=== PATIENT | female | born 1940 | race Caucasian/White ===

== ENCOUNTER 2021-10-23 06:05 | Day surgery (SDC) | payer MEDICARE, MEDICAID, SELFPAY ==
[2021-10-23 07:36] VITALS: BP 134/68; PULSE 74; RESP 20; TEMP 36.7; O2SAT 96
[2021-10-23] MEDS: TETRACAINE 0.5% OPHTH 1 DROP EYE-LEFT ×2 (07:38→07:47)
[2021-10-23] MEDS: KETOROLAC OPHTH 0.5% 1 DROP EYE-LEFT ×2 (07:38→07:54)
[2021-10-23 07:41] VITALS: BMI 38.3
--- NOTE | 2021-10-23 07:52 | SUR.PREOP ---
The eye drops brought by the patient (Ketorolac and Prednisolone) are examined and I have determined they are labeled by the patient's pharmacy for this patient as prescribed by the surgeon. The bottles are intact, recently obtained and appear to be correct. pt did not bring her drops, pharmacy provided them
[2021-10-23] MEDS: TETRACAINE 0.5% OPHTH 2 DROP EYE-LEFT (09:10)
[2021-10-23] MEDS: BALANCED SALT IRRIG SOLN 15 ML EYE-LEFT (09:15)
[2021-10-23 09:35] VITALS: BP 130/77; PULSE 68; RESP 14; TEMP 36.6; O2SAT 96
--- NOTE | 2021-10-23 09:35 | W.ANESCHARGE ---
Anesthesia Charges Start Date/Time Anesthesia Start Date: 10/23/21 Anesthesia Start Time: 09:03 Stop Date/Time Anesthesia Stop Date: 10/23/21 Anesthesia Stop Time: 09:35 Summary Extremes of Age: Over 71-CPT 21673
--- NOTE | 2021-10-23 09:41 | P.PCN_ITS ---
Procedure Note Date Seen: 10/23/21 Will [facility] bill your pro fee for this procedure?: Yes Procedure Description: SURGEON: Catherine Pisano MD PREOPERATIVE DIAGNOSIS: Nuclear sclerotic cataract, left eye. POSTOPERATIVE DIAGNOSIS: Nuclear sclerotic cataract, left eye. NAME OF OPERATION: Phacoemulsification of cataract with posterior chamber intraocular lens implantation in the left eye. ANESTHESIA: Topical. ESTIMATED BLOOD LOSS: Less than 2 cc. COMPLICATIONS: None. PATHOLOGY SPECIMEN: None. INDICATIONS: See consult note for details. The risks, benefits and alternatives of the procedure were explained to the patient, who elected to proceed and signed informed consent to do so. PROCEDURE: The patient was brought to the pre-holding area where the left eye was identified as the operative eye. I placed my initials above this eye. The patient received eye drops consisting of 0.5% tetracaine, 1% tropicamide, 10% phenylephrine, and 0.5% ketorolac. The patient was then brought to the operating room where the left eye was again identified as the operative eye. The eye was prepped with Betadine and draped in the usual sterile ophthalmic fashion. A #15 super-sharp blade was used to create a paracentesis site. 1% non-preserved intracameral lidocaine was injected into the anterior chamber. Endocoat was injected into the anterior chamber. A 2.4 mm keratome was used to create a three-plane self-sealing incision 1 mm anterior to the temporal limbus. A cystotome was used to create an anterior capsular leaflet. The Utrata forceps were used to extend this to form a continuous curvilinear capsulorrhexis. Hydrodissection was performed. The cataract was removed with phacoemulsification using the [id number] technique. The irrigation and aspiration tip was used to remove the remaining cortex. Healon was injected into the capsular bag. An HA ZCB00 intraocular lens of 21.5 diopters was injected into the capsular bag. The irrigation and aspiration tip was used to remove the remaining viscoelastic. Balanced salt solution on a cannula was used to hydrate the wound, and the wound was found to be watertight. The pupil was noted to be round. DISPOSITION: The patient was taken to the recovery room and discharged to home in stable condition. The patient was instructed to call me or go to the emergency department with any sudden change, including dramatic loss of vision, severe pain in the eye or eyebrow region, nausea, or vomiting. The patient will follow up in the clinic tomorrow morning. Surgeon: Catherine Pisano MD
--- NOTE | 2021-10-23 09:46 | W.ANESCHARGE ---
Anesthesia Charges Start Date/Time Anesthesia Start Date: 10/23/21 Anesthesia Start Time: 09:03 Stop Date/Time Anesthesia Stop Date: 10/23/21 Anesthesia Stop Time: 09:35 Summary Extremes of Age: Over 71-CPT 47257
== END 2021-10-23 10:25 | disposition home or self-care (01) ==
PROVIDERS: PCP Family Medicine; Visit Provider Ophthalmology
PROC: (CPT 66984; principal; 2021-10-23 07:30)
DX: H25.12 Age-related nuclear cataract, left eye (principal)
CPT/HCPCS: 66984; 00142; 99100; A9270; J2250; J3010; V2632

== ENCOUNTER 2021-11-06 10:41 | Day surgery (SDC) | payer MEDICARE, MEDICAID, SELFPAY ==
[2021-11-06] MEDS: TETRACAINE 0.5% OPHTH 1 DROP EYE-RIGHT ×2 (11:36→11:50)
[2021-11-06] MEDS: KETOROLAC OPHTH 0.5% 1 DROP EYE-RIGHT ×2 (11:36→11:50)
[2021-11-06 11:40] VITALS: BP 123/66; PULSE 75; RESP 16; TEMP 36.6; O2SAT 96
[2021-11-06 11:41] VITALS: BMI 38.3
[2021-11-06] MEDS: SODIUM CHLORIDE 0.9 % (FLUSH) 10 ML SYRINGE IVF (11:54)
--- NOTE | 2021-11-06 11:57 | SUR.PREOP ---
The eye drops brought by the patient (Ketorolac and Prednisolone) are examined and I have determined they are labeled by the patient's pharmacy for this patient as prescribed by the surgeon. The bottles are intact, recently obtained and appear to be correct.
[2021-11-06] MEDS: TETRACAINE 0.5% OPHTH 2 DROP EYE-RIGHT (12:02)
[2021-11-06] MEDS: BALANCED SALT IRRIG SOLN 15 ML EYE-RIGHT (12:05)
--- NOTE | 2021-11-06 12:12 | W.ANESCHARGE ---
Anesthesia Charges Start Date/Time Anesthesia Start Date: 11/06/21 Anesthesia Start Time: 11:58 Stop Date/Time Anesthesia Stop Date: 11/06/21 Anesthesia Stop Time: 12:26 Summary Emergency: No Extremes of Age: Over 71-CPT 74392
[2021-11-06 12:25] VITALS: BP 131/75; PULSE 76; RESP 16; TEMP 36.7; O2SAT 93
--- NOTE | 2021-11-06 13:08 | P.PCN_ITS ---
Procedure Note Date Seen: 11/06/21 Will [facility] bill your pro fee for this procedure?: Yes Procedure Description: SURGEON: Catherine Pisano MD PREOPERATIVE DIAGNOSIS: Nuclear sclerotic cataract, right eye. POSTOPERATIVE DIAGNOSIS: Nuclear sclerotic cataract, right eye. NAME OF OPERATION: Phacoemulsification of cataract with posterior chamber intraocular lens implantation in the right eye. ANESTHESIA: Topical. ESTIMATED BLOOD LOSS: Less than 2 cc. COMPLICATIONS: None. PATHOLOGY SPECIMEN: None. INDICATIONS: See consult note for details. The risks, benefits and alternatives of the procedure were explained to the patient, who elected to proceed and signed informed consent to do so. PROCEDURE: The patient was brought to the pre-holding area where the right eye was identified as the operative eye. I placed my initials above this eye. The patient received eye drops consisting of 0.5% tetracaine, 1% tropicamide, 10% phenylephrine, and 0.5% ketorolac. The patient was then brought to the operating room where the right eye was again identified as the operative eye. The eye was prepped with Betadine and draped in the usual sterile ophthalmic fashion. A #15 super-sharp blade was used to create a paracentesis site. 1% non-preserved intracameral lidocaine was injected into the anterior chamber. Endocoat was injected into the anterior chamber. A 2.4 mm keratome was used to create a three-plane self-sealing incision 1 mm anterior to the temporal limbus. A cystotome was used to create an anterior capsular leaflet. The Utrata forceps were used to extend this to form a continuous curvilinear capsulorrhexis. Hydrodissection was performed. The cataract was removed with phacoemulsification using the [id number] technique. The irrigation and aspiration tip was used to remove the remaining cortex. Healon was injected into the capsular bag. An HA ZCB00 intraocular lens of 21.5 diopters was injected into the capsular bag. The irrigation and aspiration tip was used to remove the remaining viscoelastic. Balanced salt solution on a cannula was used to hydrate the wound, and the wound was found to be watertight. The pupil was noted to be round. DISPOSITION: The patient was taken to the recovery room and discharged to home in stable condition. The patient was instructed to call me or go to the emergency department with any sudden change, including dramatic loss of vision, severe pain in the eye or eyebrow region, nausea, or vomiting. The patient will follow up in the clinic tomorrow morning. Surgeon: Catherine Pisano MD
--- NOTE | 2021-11-06 13:26 | W.ANESCHARGE ---
Anesthesia Charges Start Date/Time Anesthesia Start Date: 11/06/21 Anesthesia Start Time: 11:58 Stop Date/Time Anesthesia Stop Date: 11/06/21 Anesthesia Stop Time: 12:26 Summary Emergency: No Extremes of Age: Over 71-CPT 90935
== END 2021-11-06 13:52 | disposition home or self-care (01) ==
PROVIDERS: PCP Family Medicine; Visit Provider Ophthalmology
PROC: (CPT 66984; principal; 2021-11-06 10:45)
DX: H25.11 Age-related nuclear cataract, right eye (principal)
CPT/HCPCS: 66984; 00142; 99100; A9270; J2250; J3010; V2632

== ENCOUNTER 2022-01-09 16:37 | Emergency (ER) | payer MEDICARE, OTHER, SELFPAY ==
[2022-01-09] VITALS (15 sets, daily range): BP systolic 125–145; BP diastolic 75–107; PULSE 83–98; RESP 16; TEMP 36.3; O2SAT 86–93
--- NOTE | 2022-01-09 17:01 | ED_ITS ---
HPI - General Adult General Time Seen by Provider: 17:02 Date Seen: 01/09/22 Chief complaint: Chest Pain Stated complaint: Heart issues Time Seen by Provider: 01/09/22 16:48 Source: patient and RN notes reviewed Mode of arrival: ambulatory Limitations: no limitations History of Present Illness HPI narrative: Patient is an 81-year-old female coming in with concern of similar symptoms in 2019. She reports she went to the doctor and they diagnosed her with bronchitis. She states she had a doctor come back in and [place] it was not multiple things. He went to do some more blood testing and came back in and told her that they were going to put her in the hospital motor up on a bunch of Lasix. She states over weeks she has been feeling progressively more short of breath, coughing. No fevers or chills. She has a pacemaker and notes that sometimes at night it will flip up until after flipped down. She states she hates this pacemaker. She has occasional chest pressure at times but no acute chest pain. Maybe some diminished appetite but no nausea vomiting, no abdominal pain. She thinks she has had some weight gain. She is a bit vague as a historian but certainly a very pleasant person. Related Data Home Medications Medication Instructions Recorded Confirmed acetaminophen 500 mg capsule 500 mg PO Q6H PRN 10/21/21 10/21/21 amitriptyline 10 mg tablet 10 mg PO DAILY 10/21/21 10/23/21 apixaban 5 mg tablet (Eliquis) 5 mg PO DAILY 10/21/21 10/23/21 atorvastatin 40 mg tablet 40 mg PO DAILY 10/21/21 10/23/21 fluconazole 150 mg tablet 150 mg PO .weekly 10/21/21 10/21/21 fluoxetine 20 mg capsule 20 mg PO DAILY 10/21/21 10/23/21 furosemide 20 mg tablet 20 mg PO DAILY 10/21/21 10/23/21 glipizide 2.5 mg tablet, extended 2.5 mg PO DAILY 10/21/21 10/23/21 release 24 hr metformin 500 mg tablet,extended 500 mg PO DAILY 10/21/21 10/23/21 release 24 hr metoprolol succinate 25 mg 25 mg PO DAILY 10/21/21 10/23/21 tablet,extended release 24 hr nitrofurantoin 100 mg PO 10/21/21 monohydrate/macrocrystals 100 mg capsule omeprazole 20 mg capsule,delayed 20 mg PO DAILY 10/21/21 10/23/21 release oxycodone 5 mg tablet 5 mg PO 10/21/21 pramipexole 0.125 mg tablet 0.125 mg PO 10/21/21 spironolactone 25 mg tablet 12.5 mg PO DAILY 10/21/21 10/23/21 trazodone 50 mg tablet 50 mg PO 10/21/21 Allergies Allergy/AdvReac Type Severity Reaction Status Date / Time latex Allergy Mild Rash Verified 10/23/21 07:20 metronidazole Allergy Unknown Diarrhea Verified 11/06/21 11:05 nickel Allergy Unknown Rash Verified 11/06/21 11:05 diazepam [From Valium] Allergy Agitation Verified 10/23/21 07:20 tizanidine Allergy Hallucinati Verified 10/23/21 07:20 ng cephalexin AdvReac Diarrhea Verified 10/23/21 07:20 codeine AdvReac nausea Verified 10/23/21 07:20 gabapentin AdvReac Anxiety Verified 10/23/21 07:20 meperidine [From Demerol] AdvReac Agitated Verified 10/23/21 07:20 morphine AdvReac Nausea Verified 10/23/21 07:20 PFSH PFSH Medical History Anxiety CAD (coronary artery disease) Diabetes mellitus GERD (gastroesophageal reflux disease) Hypertension Menieres disease Myocardial infarction Osteoarthritis Paroxysmal atrial fibrillation 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 Surgical History H/O cervical discectomy H/O shoulder replacement History of hysterectomy History of total knee arthroplasty Social History Smoking Status: Never smoker How often do you have a drink containing alcohol: never AUDIT-C Alcohol total score: 0 Non-prescribed substance use: denies use Caffeine: No Exam Const: Vital Signs, click to edit/add: Vital Signs - 24 hr 01/09/22 16:47 01/09/22 17:22 01/09/22 16:54 Temperature 97.4 F L Pulse Rate 98 Pulse Rate [Right Pulse Oximeter] 94 Blood Pressure Blood Pressure [Le ft Upper Arm] 138/91 H Pulse Oximetry 92 92 93 Oxygen Delivery Me thod Room Air 01/09/22 17:00 01/09/22 17:09 01/09/22 17:30 Temperature Pulse Rate 93 95 94 Pulse Rate [Right Pulse Oximeter] Blood Pressure 134/78 Blood Pressure [Le ft Upper Arm] Pulse Oximetry 90 90 88 Oxygen Delivery Me thod 01/09/22 17:34 01/09/22 17:36 01/09/22 17:37 Temperature Pulse Rate 84 94 92 Pulse Rate [Right Pulse Oximeter] Blood Pressure 139/107 H 145/104 H Blood Pressure [Le ft Upper Arm] Pulse Oximetry 90 92 90 Oxygen Delivery Me thod 01/09/22 18:00 01/09/22 18:02 01/09/22 18:36 Temperature Pulse Rate 91 90 83 Pulse Rate [Right Pulse Oximeter] Blood Pressure 126/75 Blood Pressure [Le ft Upper Arm] Pulse Oximetry 86 L 86 L 90 Oxygen Delivery Me thod 01/09/22 18:38 Temperature Pulse Rate 92 Pulse Rate [Right Pulse Oximeter] Blood Pressure 131/82 Blood Pressure [Le ft Upper Arm] Pulse Oximetry 88 Oxygen Delivery Me thod Documenting provider has reviewed patient's vital signs: yes Common normals: no apparent distress, oriented x3, no limitations, healthy appearing, alert and well nourished General appearance: cooperative, comfortable and well kempt Nutritional appearance: obese HENMT: Common normals: normocephalic, head/scalp atraumatic, hearing grossly normal bilaterally, external ears normal, external nose normal, nasal mucous membranes and turbinates normal, moist oral mucous membranes and oropharynx normal Head and scalp: normocephalic and atraumatic Nose: external nose normal and nasal mucous membranes and turbinates normal External ear: external ears normal Eye: Common normals: PERRL, EOMs intact bilaterally, conjunctivae normal and no scleral icterus Conjunctiva: conjunctiva(e) normal Pupil: PERRL Neck & C-Spine: Common normals: full ROM, no lymphadenopathy, supple, no meningeal signs, thyroid normal and no carotid bruits Thyroid: thyroid normal Other: Neck is thick, short, difficult to assess jugular venous distention. Chest: Other: Has some excoriation versus superficial shallow areas on her left shoulder area up with some surrounding erythema. Patient states it continues to spread. She states after she got the COVID vaccination her arm bothered her. She has been placing Neosporin on this. Reviewed with her that I think this is probably a reaction to the Neosporin from what I am looking at. Resp: Common normals: normal respiratory effort, no retractions and no use of accessory muscles Other: Has some fibrotic sounding crackles right base. Overall lungs sound clear. Cardio: Common normals: regular rate, regular rhythm, S1 normal heart sound, S2 normal heart sound, no gallops, no clicks and no murmurs Rate: regular rate Rhythm: regular rhythm Heart sounds: S1 normal and S2 normal GI: Common normals: Normal to inspection, nondistended, normoactive bowel sounds present, soft to palpation, non-tender, no hepatosplenomegaly and no masses Palpation: soft and no hepatosplenomegaly Extremity: Other: She has no lower extremity edema, no calf tenderness. Neuro: Common normals: oriented x3 Sensorium/orientation: alert Meningeal signs: no meningeal signs Psych: Appearance: well kempt Course Course Hospital Course: Will attempt to look back in her 2019 records as she states she was here. Will consider acute cardiopulmonary etiologies such as CHF, pneumonia. We will start with a portable chest x-ray. We will obtain lab work. Her EKG shows a paced rhythm, thus her pacemaker shortly working. Being on chronic anticoagulation, it is very doubtful that this would represent thromboembolic disease. Reevaluation(s) Reevaluation #1: Have reviewed with patient her normal chest x-ray, labs show very mildly elevated proBNP at 647. In 2019 when she was hospitalized overnight she did have a proBNP of 1130. Sounds as if she was admitted because of hypoxia that time. With resting she did dip to 88-89% but was asymptomatic. I do believe she very likely lives there and probably decompensates even lower in deep sleep. I will recommend a sleep study which she could have arranged through her primary care provider. This time there is nothing suggesting that she needs inpatient management. She surely could be developing some mild increase congestive heart failure symptoms which I think she can start with some incre ased oral Lasix tomorrow. I do not think she needs anything emergently here tonight, plus, we certainly do not want to keep her up all night diarrhea seen when she really is not clinically unstable. Time: 19:01 Vital Signs Vital signs: Initial Vital Signs Temperature 97.4 F L 01/09/22 16:47 Temperature Source Temporal Artery Scan 01/09/22 16:47 Pulse Rate 94 01/09/22 16:47 Blood Pressure 138/91 H 01/09/22 16:47 Blood Pressure Mean 106 01/09/22 16:47 Blood Pressure Position Supine 01/09/22 16:47 Pulse Oximetry 92 01/09/22 16:47 Oxygen Delivery Method 01/09/22 16:47 Vital Signs Temperature 97.4 F L 01/09/22 16:47 Pulse Rate 94 01/09/22 16:47 Blood Pressure 138/91 H 01/09/22 16:47 Pulse Oximetry 92 01/09/22 16:47 Oxygen Delivery Method 01/09/22 16:47 Temperature 97.4 F L 01/09/22 16:47 Pulse Rate 92 01/09/22 18:38 Blood Pressure 131/82 01/09/22 18:38 Pulse Oximetry 88 01/09/22 18:38 Oxygen Delivery Method 01/09/22 16:47 Medical Decision Making Lab Data Lab results reviewed: Yes I reviewed the patient's lab results Labs: Lab Results 01/09/22 01/09/22 01/09/22 Range/Units 17:23 17:27 17:27 WBC 6.29 (4.50-11.00) K/uL RBC 4.35 (4.00-5.20) m/uL Hgb 13.2 (12.0-16.0) gm/dL Hct 40.1 (33.0-51.0) % MCV 92 (80-100) fL MCH 30 (26-34) pg MCHC 33 (32-36) gm/dL RDW Coeff of Lucy 13.5 (11.5-15.5) % Plt Count 316 (140-440) K/uL Neut % (Auto) 58.3 (42.0-72.0) % Lymph % (Auto) 22.1 (20-44) % Collier % (Auto) 13.5 H (0.0-11.0) % Eos % (Auto) 5.2 (0.0-7.0) % Baso % (Auto) 0.6 (0.0-3.0) % Neut # (Auto) 3.66 (1.7-7.0) K/uL Lymph # (Auto) 1.39 (0.90-2.90) K/uL Collier # (Auto) 0.80 (0.00-0.90) K/UL Eos # (Auto) 0.33 (0.00-0.50) K/uL Baso # (Auto) 0.04 (0.00-0.30) K/uL Abs Immat Gran (auto) 0.02 (0.00-0.30) K/uL VBG pH (7.32-7.43) VBG pCO2 (40-50) mmHG VBG pO2 (25-47) mmHG VBG HCO3 (21-28) mmol/L Sodium 134 L (135-149) mmol/L Potassium 4.6 (3.6-5.1) mmol/L Chloride 97 (96-114) mmol/L Carbon Dioxide 26 (20-32) mmol/L BUN 12 (7-30) mg/dL Creatinine 0.7 (0.5-1.5) mg/dL Estimated GFR 87 ml/min Glucose 149 H (60-115) mg/dL Calcium 9.4 (8.4-10.6) mg/dL Magnesium 1.7 (1.5-2.6) mg/dL Total Bilirubin 0.7 (0.1-1.5) mg/dL AST 32 (12-35) U/L ALT 15 (4-35) U/L Alkaline Phosphatase 82 (40-150) U/L C-Reactive Protein 1.2 H (0.5-1.0) mg/dL NT-Pro-B Natriuret Pep 647 H (0-450) PG/mL Total Protein 8.1 (6.0-8.3) g/dL Albumin 4.4 (3.3-5.0) g/dL SARS-CoV-2 (PCR) (Negative) POC Troponin I 0.00 L (0.01-0.04) ng/ml 01/09/22 01/09/22 Range/Units 17:27 17:30 WBC (4.50-11.00) K/uL RBC (4.00-5.20) m/uL Hgb (12.0-16.0) gm/dL Hct (33.0-51.0) % MCV (80-100) fL MCH (26-34) pg MCHC (32-36) gm/dL RDW Coeff of Lucy (11.5-15.5) % Plt Count (140-440) K/uL Neut % (Auto) (42.0-72.0) % Lymph % (Auto) (20-44) % Collier % (Auto) (0.0-11.0) % Eos % (Auto) (0.0-7.0) % Baso % (Auto) (0.0-3.0) % Neut # (Auto) (1.7-7.0) K/uL Lymph # (Auto) (0.90-2.90) K/uL Collier # (Auto) (0.00-0.90) K/UL Eos # (Auto) (0.00-0.50) K/uL Baso # (Auto) (0.00-0.30) K/uL Abs Immat Gran (auto) (0.00-0.30) K/uL VBG pH 7.480 H (7.32-7.43) VBG pCO2 39 L (40-50) mmHG VBG pO2 48.8 H (25-47) mmHG VBG HCO3 29 H (21-28) mmol/L Sodium (135-149) mmol/L Potassium (3.6-5.1) mmol/L Chloride (96-114) mmol/L Carbon Dioxide (20-32) mmol/L BUN (7-30) mg/dL Creatinine (0.5-1.5) mg/dL Estimated GFR ml/min Glucose (60-115) mg/dL Calcium (8.4-10.6) mg/dL Magnesium (1.5-2.6) mg/dL Total Bilirubin (0.1-1.5) mg/dL AST (12-35) U/L ALT (4-35) U/L Alkaline Phosphatase (40-150) U/L C-Reactive Protein (0.5-1.0) mg/dL NT-Pro-B Natriuret Pep (0-450) PG/mL Total Protein (6.0-8.3) g/dL Albumin (3.3-5.0) g/dL SARS-CoV-2 (PCR) Negative SARS-CoV-2 (Negative) POC Troponin I (0.01-0.04) ng/ml Imaging Data Chest x-ray: Attestation: I have reviewed the pertinent imaging results. My impression: No acute cardiopulmonary change on my preliminary review. Radiologist's impression: Patient: ERASMO CLEVELAND Facility:?[facility] Patient ID:?[id number] Site Patient ID:?[id number]. Site :?[id number] Study:?XRay Chest PCXR-01/09/2022 5:53:15 PM Ordering Physician:?Bethel Pinto Final Report: INDICATION: Cough and shortness of breath. TECHNIQUE: One view. COMPARISON: 21 March 2019. IMPRESSION: No acute cardiopulmonary disease. Minor reticular fibrotic changes in the right upper lobe and left base similar to before. Pulmonary vascularity is normal. Cardiac pacing body and wires unchanged. Bilateral shoulder prosthesis. No new significant finding. Dictated by Aleksandr Acuna MD @ 01/09/2022 6:23:54 PM (Electronic Signature) ECG Data Attestation: I personally reviewed and interpreted this ECG as follows: (Atrial sensed ventricular paced rhythm, 95 beats per minute) Prior ECG tracings: not available for review Critical Care Time Critical Care Time Critical Care Time: No Discharge Plan Discharge Clinical Impression: Congestive heart failure Condition: Stable Instructions: Heart Failure (ED), Heart Healthy Diet (ED) Additional Instructions: Tomorrow morning, increase your Lasix (furosemide) to 40 mg daily for 3 days. Go back to 20 mg in the morning after that. Need to be rechecked in clinic with your primary care provider this next week. Recommend trying to minimize sodium in your diet as this can help prevent congestive heart failure episodes. Recommend daily weight and follow this. If any point you feel you are worsening through the weekend, have chest pain, increasing cough, increasing shortness of breath or develops fever, do recommend re-evaluation. Activity Level: Activity as Tolerated Discharge Diet: Heart Healthy (2 gm sodium, low fat) Prescriptions: No Action atorvastatin 40 mg tablet 40 mg PO DAILY Label Comments: TAKE ONE TABLET BY MOUTH DAILY amitriptyline 10 mg tablet 10 mg PO DAILY Label Comments: TAKE 2 TABLETS (20 MG) BY MOUTH AT BEDTIME. acetaminophen 500 mg capsule 500 mg PO Q6H PRN Eliquis 5 mg tablet 5 mg PO DAILY Label Comments: TAKE ONE TABLET BY MOUTH TWICE A DAY fluoxetine 20 mg capsule 20 mg PO DAILY Label Comments: TAKE ONE CAPSULE BY MOUTH DAILY fluconazole 150 mg tablet 150 mg PO .weekly Label Comments: TAKE ONE TABLET BY MOUTH WEEKLY FOR 6 WEEKS furosemide 20 mg tablet 20 mg PO DAILY Label Comments: TAKE 3 TABLETS BY MOUTH DAILY glipizide 2.5 mg tablet extended release 24hr 2.5 mg PO DAILY Label Comments: TAKE ONE TABLET(2.5MG) BY MOUTH ONCE DAILY BEFORE A MEAL metformin 500 mg tablet extended release 24 hr 500 mg PO DAILY Label Comments: TAKE 4 TABLETS BY MOUTH DAILY AT 10AM metoprolol succinate 25 mg tablet extended release 24 hr 25 mg PO DAILY Label Comments: TAKE TWO TABLETS BY MOUTH DAILY nitrofurantoin monohyd/m-cryst 100 mg capsule 100 mg PO Label Comments: TAKE ONE CAPSULE BY MOUTH TWICE A DAY omeprazole 20 mg capsule,delayed release(DR/EC) 20 mg PO DAILY Label Comments: TAKE ONE CAPSULE BY MOUTH DAILY oxycodone 5 mg tablet 5 mg PO Label Comments: TAKE ONE TABLET BY MOUTH DURING THE DAY AND 2 TABLETS AT BEDTIME pramipexole 0.125 mg tablet 0.125 mg PO Label Comments: TAKE ONE TABLET BY MOUTH AT NOON AND 2 TABS EVERY EVENING spironolactone 25 mg tablet 12.5 mg PO DAILY Label Comments: TAKE 1/2 TABLET BY MOUTH DAILY trazodone 50 mg tablet 50 mg PO Label Comments: TAKE 2 TABLETS (100 MG) BY MOUTH AT BEDTIME. Follow Up/Referrals: Jesus Mistry MD [Primary Care Provider] - Stand Alone Forms: [facility] Info Instructions
--- NOTE | 2022-01-09 17:22 | CRLHL7_ITS ---
For Patients: As a result of the Cures Act, medical imaging exams and procedure reports are released immediately into your electronic medical record. You may view this report before your referring provider. If you have questions, please contact your health care provider. INDICATION: Cough and shortness of breath. TECHNIQUE: One view. COMPARISON: 21 March 2019. IMPRESSION: No acute cardiopulmonary disease. Minor reticular fibrotic changes in the right upper lobe and left base similar to before. Pulmonary vascularity is normal. Cardiac pacing body and wires unchanged. Bilateral shoulder prosthesis. No new significant finding. Dictated by Aleksandr Acuna MD @ 01/09/2022 6:23:54 PM (Electronically Signed)
[2022-01-09 17:51] LABS: HCO3 VBG 29 mmol/L (21-28); PCO2 VBG 39 mmHG (40-50); PO2 VBG 48.8 mmHG (25-47)
[2022-01-09 17:56] LABS: Basophils Absolute Auto 0.04 K/uL (0.00-0.30); Basophils Percent Auto 0.6 % (0.0-3.0); Eosinophils Absolute Auto 0.33 K/uL (0.00-0.50); Eosinophils Percent Auto 5.2 % (0.0-7.0); Hematocrit 40.1 % (33.0-51.0); Hemoglobin* 13.2 gm/dL (12.0-16.0); Immature Granulocytes Abs Auto 0.02 K/uL (0.00-0.30); Lymphocytes Absolute Auto 1.39 K/uL (0.90-2.90); Lymphocytes Percent Auto 22.1 % (20-44); Mean Corpuscular HGB Conc 33 gm/dL (32-36); Mean Corpuscular Hemoglobin 30 pg (26-34); Mean Corpuscular Volume 92 fL (80-100); Monocytes Percent Auto 13.5 % (0.0-11.0); Neutrophils Absolute Auto 3.66 K/uL (1.7-7.0); Neutrophils Percent Auto 58.3 % (42.0-72.0); Platelet Count* 316 K/uL (140-440); RDW Coefficient of Variation % 13.5 % (11.5-15.5); Red Blood Count 4.35 m/uL (4.00-5.20); White Blood Count* 6.29 K/uL (4.50-11.00)
[2022-01-09 17:59] LABS: Slide Review Reflex No
[2022-01-09 18:10] LABS: Albumin* 4.4 g/dL (3.3-5.0); Chloride* 97 mmol/L (96-114); Sodium* 134 mmol/L (135-149)
[2022-01-09 18:11] LABS: Potassium* 4.6 mmol/L (3.6-5.1)
[2022-01-09 18:13] LABS: Alkaline Phosphatase* 82 U/L (40-150); Aspartate Amino Transferase* 32 U/L (12-35); Bilirubin Total* 0.7 mg/dL (0.1-1.5); Carbon Dioxide* 26 mmol/L (20-32); Creatinine* 0.7 mg/dL (0.5-1.5); Estimated Glomerular Filt Rate 87 ml/min; Total Protein* 8.1 g/dL (6.0-8.3)
[2022-01-09 18:14] LABS: Alanine Aminotransferase* 15 U/L (4-35); Blood Urea Nitrogen* 12 mg/dL (7-30); Calcium* 9.4 mg/dL (8.4-10.6); Glucose* 149 mg/dL (60-115); Magnesium* 1.7 mg/dL (1.5-2.6)
[2022-01-09 18:15] LABS: SARS PCR* Negative SARS-CoV-2 (Negative)
[2022-01-09 18:16] LABS: C Reactive Protein* 1.2 mg/dL (0.5-1.0)
[2022-01-09 18:22] LABS: NT Pro B Type NatriureticPept* 647 PG/mL (0-450)
== END 2022-01-09 19:55 | disposition home or self-care (01) ==
PROVIDERS: Emergency Provider Family Medicine; PCP Family Medicine
DX: I50.9 Heart failure, unspecified (principal)
CPT/HCPCS: 36415; 71045; 80053; 82803; 83735; 83880; 85025; 86140; 87635; 93005; 94761; 99284

== ENCOUNTER 2022-01-28 12:52 | Outpatient (CLI) | payer MEDICARE, OTHER, SELFPAY | END 2022-01-28 12:53 | disposition home or self-care (01) | LOC: WOUND 12:52 | PROVIDERS: PCP Family Medicine; Visit Provider Physician Assistant Surgical | DX: L85.3 Xerosis cutis (principal); F42.4 Excoriation (skin-picking) disorder | CPT/HCPCS: 99213 ==

== ENCOUNTER 2022-02-04 13:27 | Outpatient (CLI) | payer MEDICARE, OTHER, SELFPAY | END 2022-02-04 13:28 | disposition home or self-care (01) | LOC: WOUND 13:28 | PROVIDERS: PCP Family Medicine; Visit Provider Nurse Practitioner Family | DX: F42.4 Excoriation (skin-picking) disorder (principal); L85.3 Xerosis cutis | CPT/HCPCS: 99213 ==

== ENCOUNTER 2022-02-12 21:41 | Outpatient (CLI) | payer MEDICARE, OTHER, SELFPAY | END 2022-02-12 21:42 | disposition home or self-care (01) | LOC: AMB 03-09 11:54 | PROVIDERS: PCP Family Medicine; Visit Provider Family Medicine | DX: R06.09 Other forms of dyspnea (principal) | CPT/HCPCS: A0425; A0427 ==

== ENCOUNTER 2022-02-12 21:55 | Emergency (ER) | payer MEDICARE, OTHER, SELFPAY ==
[2022-02-12 22:06] VITALS: BP 125/70; PULSE 76; RESP 18; TEMP 36.8; O2SAT 92; BMI 33.8
--- NOTE | 2022-02-12 22:32 | ED.SOB ---
HPI - SOB/Dyspnea General Chief Complaint: Shortness of Breath/Dyspnea Stated Complaint: Shortness of Breath Time Seen by Provider: 02/12/22 22:14 History of Present Illness HPI Narrative: 81-year-old woman presenting to the emergency department via EMS with complaint of increasing shortness of breath. She says she feels better now that she is here on oxygen. Nasal cannula is in place however she is not receiving oxygen at this time. Reviewing records shows her current oxygenation to be similar to prior visits. She says she was recently diagnosed with pulmonary fibrosis on a visit with her doctor and also apparently with a pneumonia. It is not clear that she received imaging at this time. She has been taking doxycycline for 6 days now. She does not use oxygen at home but thinks maybe she should. Unclear where pulmonary fibrosis diagnosis has come from per her recollection. She does have an an inhaler which she tried at home but it did not help she says. Has been feeling short of breath over the last week or more. Says that doctor said that she did not have heart failure. Furthermore she says she has lost 25 lb since . She has not had a fever but recounts how family members have been quite sick without a fever. Living independently at [facility] Related Data Home Medications Medication Instructions Recorded Confirmed acetaminophen 500 mg capsule 500 mg PO Q6H PRN 10/21/21 10/21/21 amitriptyline 10 mg tablet 10 mg PO DAILY 10/21/21 10/23/21 apixaban 5 mg tablet (Eliquis) 5 mg PO DAILY 10/21/21 10/23/21 atorvastatin 40 mg tablet 40 mg PO DAILY 10/21/21 10/23/21 fluconazole 150 mg tablet 150 mg PO .weekly 10/21/21 10/21/21 fluoxetine 20 mg capsule 20 mg PO DAILY 10/21/21 10/23/21 furosemide 20 mg tablet 20 mg PO DAILY 10/21/21 10/23/21 glipizide 2.5 mg tablet, extended 2.5 mg PO DAILY 10/21/21 10/23/21 release 24 hr metformin 500 mg tablet,extended 500 mg PO DAILY 10/21/21 10/23/21 release 24 hr metoprolol succinate 25 mg 25 mg PO DAILY 10/21/21 10/23/21 tablet,extended release 24 hr nitrofurantoin 100 mg PO 10/21/21 monohydrate/macrocrystals 100 mg capsule omeprazole 20 mg capsule,delayed 20 mg PO DAILY 10/21/21 10/23/21 release oxycodone 5 mg tablet 5 mg PO 10/21/21 pramipexole 0.125 mg tablet 0.125 mg PO 10/21/21 spironolactone 25 mg tablet 12.5 mg PO DAILY 10/21/21 10/23/21 trazodone 50 mg tablet 50 mg PO 10/21/21 Allergies Allergy/AdvReac Type Severity Reaction Status Date / Time latex Allergy Mild Rash Verified 02/12/22 22:06 metronidazole Allergy Unknown Diarrhea Verified 02/12/22 22:06 nickel Allergy Unknown Rash Verified 02/12/22 22:06 diazepam [From Valium] Allergy Agitation Verified 02/12/22 22:06 tizanidine Allergy Hallucinati Verified 02/12/22 22:06 ng cephalexin AdvReac Diarrhea Verified 02/12/22 22:06 codeine AdvReac nausea Verified 02/12/22 22:06 gabapentin AdvReac Anxiety Verified 02/12/22 22:06 meperidine [From Demerol] AdvReac Agitated Verified 02/12/22 22:06 morphine AdvReac Nausea Verified 02/12/22 22:06 Review of Systems Status of ROS: Reports: 6 or more systems reviewed and unremarkable except as noted in History and below PFSH [facility] Medical History Anxiety CAD (coronary artery disease) Diabetes mellitus GERD (gastroesophageal reflux disease) Hypertension Menieres disease Myocardial infarction Osteoarthritis Paroxysmal atrial fibrillation 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 NAD. Speaking in full sentences. Nonlabored breathing. Oropharynx is moist. Nasopharynx sounds just a little congested. Neck is supple Lungs with end inspiratory crackles diffusely, mild. End expiratory trace wheeze diffusely. Good air movement. Cardiovascular with regular rate and rhythm. Might be hearing a trace systolic murmur. I do not appreciate JVD Lower extremities are well perfused and without edema. Const: Vital Signs, click to edit/add: Vital Signs - 24 hr 02/12/22 22:06 02/12/22 22:35 02/12/22 23:00 Temperature 98.2 F Pulse Rate [Pulse Oximeter] 76 76 Respiratory Rate 18 17 Blood Pressure [Ri ght Upper Arm] 125/70 137/69 Pulse Oximetry 92 89 90 Oxygen Delivery Me thod Room Air Room Air 02/13/22 03:17 02/13/22 01:00 Temperature Pulse Rate [Pulse Oximeter] 68 74 Respiratory Rate 18 18 Blood Pressure [Ri ght Upper Arm] 129/77 144/66 H Pulse Oximetry 94 Oxygen Delivery Me thod Room Air Documenting provider has reviewed patient's vital signs: yes Course Course Hospital Course: Due to what she describes as a discomfort in her spine/arthritis does transition regularly in the bed and then ultimately in a chair/wheelchair. Vital Signs Vital signs: Initial Vital Signs Temperature 98.2 F 02/12/22 22:06 Temperature Source Temporal Artery Scan 02/12/22 22:06 Pulse Rate 76 02/12/22 22:06 Respiratory Rate 18 02/12/22 22:06 Blood Pressure 125/70 02/12/22 22:06 Blood Pressure Mean 88 02/12/22 22:06 Pulse Oximetry 92 02/12/22 22:06 Oxygen Delivery Method 02/12/22 22:06 Vital Signs Temperature 98.2 F 02/12/22 22:06 Pulse Rate 76 02/12/22 22:06 Respiratory Rate 18 02/12/22 22:06 Blood Pressure 125/70 02/12/22 22:06 Pulse Oximetry 92 02/12/22 22:06 Oxygen Delivery Method 02/12/22 22:06 Temperature 98.2 F 02/12/22 22:06 Pulse Rate 68 02/13/22 03:17 Respiratory Rate 18 02/13/22 03:17 Blood Pressure 129/77 02/13/22 03:17 Pulse Oximetry 94 02/13/22 01:00 Oxygen Delivery Method 02/13/22 01:00 MDM - SOB/Dyspnea MDM Narrative Medical decision making narrative: IV was established. CRP and procalcitonin are normal. Venous blood gases are improved from prior as is pro BNP at 5:01 a.m.. White count is not elevated. Urinalysis is obtained 2+ leukocyte esterase and 5-10 white cells on microscopic. She is not having symptoms of urinary tract infection however. Not complaining overly of weakness either. Wheeze had resolved and moving more air after nebulization. Oxygen saturations remained at what I think is her low baseline. Chest x-ray showed fibrotic changes by my read. Radiology over-read with concern of some multifocal infiltrate overlying. She has been taking doxycycline. I think labs seem less likely to support infectious etiology here. COVID influenza and RSV screening was negative Inquiring about returning home around this time Ms. Hinton said she just did not feel well enough to do so. Solu-Medrol and pramipexole was given and we did check labs as above. After longer period of observation agreed that seems reasonably well enough to return home. She was asking for oxygen to be supplied for discharge home but I would not be able to do that tonight. I do feel she is safe to depart the emergency department. Given though back discomfort was given 1 of her usual oxycodone pills from our stock. Was also given ceftriaxone if there is more going on here. She does have followup next day for pulmonary function testing. Plan to add a course of prednisone and continue doxycycline. Lab Data Attestation: I reviewed the patient's lab results. Labs: Lab Results 02/12/22 02/12/22 02/12/22 Range/Units 22:40 23:55 23:55 WBC 7.52 (4.50-11.00) K/uL RBC 4.32 (4.00-5.20) m/uL Hgb 12.9 (12.0-16.0) gm/dL Hct 39.4 (33.0-51.0) % MCV 91 (80-100) fL MCH 30 (26-34) pg MCHC 33 (32-36) gm/dL RDW Coeff of Lucy 13.9 (11.5-15.5) % Plt Count 308 (140-440) K/uL Neut % (Auto) 57.5 (42.0-72.0) % Lymph % (Auto) 25.5 (20-44) % Harvey % (Auto) 12.2 H (0.0-11.0) % Eos % (Auto) 4.1 (0.0-7.0) % Baso % (Auto) 0.4 (0.0-3.0) % Neut # (Auto) 4.32 (1.7-7.0) K/uL Lymph # (Auto) 1.92 (0.90-2.90) K/uL Harvey # (Auto) 0.90 (0.00-0.90) K/UL Eos # (Auto) 0.31 (0.00-0.50) K/uL Baso # (Auto) 0.03 (0.00-0.30) K/uL Abs Immat Gran (auto) 0.02 (0.00-0.30) K/uL Imm/Tot Granulo (auto) 0.3 % VBG pH (7.32-7.43) VBG pCO2 (40-50) mmHG VBG pO2 (25-47) mmHG VBG HCO3 (21-28) mmol/L Sodium 136 (135-149) mmol/L Potassium 4.3 (3.6-5.1) mmol/L Chloride 104 (96-114) mmol/L Carbon Dioxide 25 (20-32) mmol/L BUN 16 (7-30) mg/dL Creatinine 0.7 (0.5-1.5) mg/dL Estimated Creat Clear 35.49 Estimated GFR 87 ml/min Glucose 152 H (60-115) mg/dL Calcium 9.1 (8.4-10.6) mg/dL C-Reactive Protein < 0.5 L (0.5-1.0) mg/dL NT-Pro-B Natriuret Pep 501 H (0-450) PG/mL Procalcitonin 0.07 (<0.50) ng/mL Urine Color (Yellow) Urine Appearance (Clear) Urine pH (5.0-8.5) Ur Specific [place] (1.000-1.030) Urine Protein (Negative) Urine Glucose (UA) (Negative) Urine Ketones (Negative) Urine Blood (Negative) Urine Nitrite (Negative) Urine Bilirubin (Negative) Urine Urobilinogen (0.2-1.0) Ur Leukocyte Esterase (Negative) Urine RBC (0-2) Urine WBC (0-5) Ur Squamous Epith Cells (None-Few) Amorphous Sediment (None) Urine Bacteria (None) Urine Mucus (None) SARS-CoV-2 (PCR) Negative SARS-CoV-2 (Negative) Influenza Type A (PCR) Negative PCR FLU A (Negative) Influenza Type B (PCR) Negative PCR FLU B (Negative) RSV (PCR) Negative PCR RSV (Negative) 02/12/22 02/13/22 Range/Units 23:55 00:30 WBC (4.50-11.00) K/uL RBC (4.00-5.20) m/uL Hgb (12.0-16.0) gm/dL Hct (33.0-51.0) % MCV (80-100) fL MCH (26-34) pg MCHC (32-36) gm/dL RDW Coeff of Ulcy (11.5-15.5) % Plt Count (140-440) K/uL Neut % (Auto) (42.0-72.0) % Lymph % (Auto) (20-44) % Harvey % (Auto) (0.0-11.0) % Eos % (Auto) (0.0-7.0) % Baso % (Auto) (0.0-3.0) % Neut # (Auto) (1.7-7.0) K/uL Lymph # (Auto) (0.90-2.90) K/uL Harvey # (Auto) (0.00-0.90) K/UL Eos # (Auto) (0.00-0.50) K/uL Baso # (Auto) (0.00-0.30) K/uL Abs Immat Gran (auto) (0.00-0.30) K/uL Imm/Tot Granulo (auto) % VBG pH 7.457 H (7.32-7.43) VBG pCO2 40 (40-50) mmHG VBG pO2 48.1 H (25-47) mmHG VBG HCO3 28 (21-28) mmol/L Sodium (135-149) mmol/L Potassium (3.6-5.1) mmol/L Chloride (96-114) mmol/L Carbon Dioxide (20-32) mmol/L BUN (7-30) mg/dL Creatinine (0.5-1.5) mg/dL Estimated Creat Clear Estimated GFR ml/min Glucose (60-115) mg/dL Calcium (8.4-10.6) mg/dL C-Reactive Protein (0.5-1.0) mg/dL NT-Pro-B Natriuret Pep (0-450) PG/mL Procalcitonin (<0.50) ng/mL Urine Color Yellow (Yellow) Urine Appearance Clear (Clear) Urine pH 5.5 (5.0-8.5) Ur Specific [place] 1.015 (1.000-1.030) Urine Protein Negative (Negative) Urine Glucose (UA) Trace A (Negative) Urine Ketones Negative (Negative) Urine Blood Negative (Negative) Urine Nitrite Negative (Negative) Urine Bilirubin Negative (Negative) Urine Urobilinogen 0.2 (0.2-1.0) Ur Leukocyte Esterase 2+ A (Negative) Urine RBC 0-2 (0-2) Urine WBC 5-10 A (0-5) Ur Squamous Epith Cells Few (None-Few) Amorphous Sediment Moderate A (None) Urine Bacteria Moderate A (None) Urine Mucus Moderate A (None) SARS-CoV-2 (PCR) (Negative) Influenza Type A (PCR) (Negative) Influenza Type B (PCR) (Negative) RSV (PCR) (Negative) Discharge Plan Discharge Clinical Impression: Pulmonary fibrosis, Cough Patient Disposition: Home, Self-Care Condition: Improved Additional Instructions: Would continue the doxycycline. Watch your sugars while taking the prednisone. I would expect your sugars to be up. Good luck with your pulmonary function testing tomorrow. Return for persistent increased rate/work of breathing, associated fever. Prednisone from [facility]. Prescriptions: No Action atorvastatin 40 mg tablet 40 mg PO DAILY Label Comments: TAKE ONE TABLET BY MOUTH DAILY amitriptyline 10 mg tablet 10 mg PO DAILY Label Comments: TAKE 2 TABLETS (20 MG) BY MOUTH AT BEDTIME. acetaminophen 500 mg capsule 500 mg PO Q6H PRN Eliquis 5 mg tablet 5 mg PO DAILY Label Comments: TAKE ONE TABLET BY MOUTH TWICE A DAY fluoxetine 20 mg capsule 20 mg PO DAILY Label Comments: TAKE ONE CAPSULE BY MOUTH DAILY fluconazole 150 mg tablet 150 mg PO .weekly Label Comments: TAKE ONE TABLET BY MOUTH WEEKLY FOR 6 WEEKS furosemide 20 mg tablet 20 mg PO DAILY Label Comments: TAKE 3 TABLETS BY MOUTH DAILY glipizide 2.5 mg tablet extended release 24hr 2.5 mg PO DAILY Label Comments: TAKE ONE TABLET(2.5MG) BY MOUTH ONCE DAILY BEFORE A MEAL metformin 500 mg tablet extended release 24 hr 500 mg PO DAILY Label Comments: TAKE 4 TABLETS BY MOUTH DAILY AT 10AM metoprolol succinate 25 mg tablet extended release 24 hr 25 mg PO DAILY Label Comments: TAKE TWO TABLETS BY MOUTH DAILY nitrofurantoin monohyd/m-cryst 100 mg capsule 100 mg PO Label Comments: TAKE ONE CAPSULE BY MOUTH TWICE A DAY omeprazole 20 mg capsule,delayed release(DR/EC) 20 mg PO DAILY Label Comments: TAKE ONE CAPSULE BY MOUTH DAILY oxycodone 5 mg tablet 5 mg PO Label Comments: TAKE ONE TABLET BY MOUTH DURING THE DAY AND 2 TABLETS AT BEDTIME pramipexole 0.125 mg tablet 0.125 mg PO Label Comments: TAKE ONE TABLET BY MOUTH AT NOON AND 2 TABS EVERY EVENING spironolactone 25 mg tablet 12.5 mg PO DAILY Label Comments: TAKE 1/2 TABLET BY MOUTH DAILY trazodone 50 mg tablet 50 mg PO Label Comments: TAKE 2 TABLETS (100 MG) BY MOUTH AT BEDTIME. Follow Up/Referrals: Jesus Mistry MD [Primary Care Provider] - Stand Alone Forms: [facility] Info Instructions
[2022-02-12 22:35] VITALS: O2SAT 89
--- NOTE | 2022-02-12 22:35 | CRLHL7_ITS ---
For Patients: As a result of the Cures Act, medical imaging exams and procedure reports are released immediately into your electronic medical record. You may view this report before your referring provider. If you have questions, please contact your health care provider. INDICATION: Chest pain. TECHNIQUE: Chest 1 view. COMPARISON: January 09, 2022. FINDINGS: Cardiovascular and mediastinum: Cardiomediastinal silhouette is within normal limits. Left chest wall pacer with leads extending to the right atrium and ventricle. Lungs and pleural spaces: Multifocal bilateral airspace opacities are noted, slightly increased compared to the prior exam. No evidence of pleural effusion. No pneumothorax identified. Bones and soft tissues: Unremarkable. Bilateral humeral head arthroplasty changes. Cervical fusion changes. IMPRESSION: Multifocal airspace opacities, slightly increased compared to the prior exam concerning for multifocal infection on a background of scarring. Dictated by Karen Neumann MD @ 02/12/2022 11:14:07 PM (Electronically Signed)
[2022-02-12] MEDS: IPRAT-ALBUT 0.5-2.5 MG/3 ML NEB 1 NEB IH (22:45)
[2022-02-12 23:00] VITALS: BP 137/69; PULSE 76; RESP 17; O2SAT 90
[2022-02-12 23:45] LABS: PCR FLU A Negative PCR FLU A (Negative); PCR FLU B Negative PCR FLU B (Negative); PCR RSV Negative PCR RSV (Negative); SARS PCR* Negative SARS-CoV-2 (Negative)
[2022-02-13] MEDS: METHYLPREDNISOLONE SOD SUCC 62.5 MG/ML (125) 80 MG IVP (00:03)
[2022-02-13 00:09] LABS: Basophils Absolute Auto 0.03 K/uL (0.00-0.30); Basophils Percent Auto 0.4 % (0.0-3.0); Eosinophils Absolute Auto 0.31 K/uL (0.00-0.50); Eosinophils Percent Auto 4.1 % (0.0-7.0); Hematocrit 39.4 % (33.0-51.0); Hemoglobin* 12.9 gm/dL (12.0-16.0); Immature Granulocytes Abs Auto 0.02 K/uL (0.00-0.30); Immature Granulocytes Pct Auto 0.3 %; Lymphocytes Absolute Auto 1.92 K/uL (0.90-2.90); Lymphocytes Percent Auto 25.5 % (20-44); Mean Corpuscular HGB Conc 33 gm/dL (32-36); Mean Corpuscular Hemoglobin 30 pg (26-34); Mean Corpuscular Volume 91 fL (80-100); Monocytes Percent Auto 12.2 % (0.0-11.0); Neutrophils Absolute Auto 4.32 K/uL (1.7-7.0); Neutrophils Percent Auto 57.5 % (42.0-72.0); Platelet Count* 308 K/uL (140-440); RDW Coefficient of Variation % 13.9 % (11.5-15.5); Red Blood Count 4.32 m/uL (4.00-5.20); White Blood Count* 7.52 K/uL (4.50-11.00)
[2022-02-13 00:12] LABS: Slide Review Reflex No
[2022-02-13 00:13] LABS: HCO3 VBG 28 mmol/L (21-28); PCO2 VBG 40 mmHG (40-50); PO2 VBG 48.1 mmHG (25-47); pH VBG 7.457 (7.32-7.43)
[2022-02-13 00:24] LABS: Chloride* 104 mmol/L (96-114)
[2022-02-13 00:25] LABS: Potassium* 4.3 mmol/L (3.6-5.1); Sodium* 136 mmol/L (135-149)
[2022-02-13 00:27] LABS: Creatinine* 0.7 mg/dL (0.5-1.5); Est. Creatinine Clearance* 35.49; Estimated Glomerular Filt Rate 87 ml/min
[2022-02-13 00:28] LABS: Blood Urea Nitrogen* 16 mg/dL (7-30); Calcium* 9.1 mg/dL (8.4-10.6); Carbon Dioxide* 25 mmol/L (20-32); Glucose* 152 mg/dL (60-115)
[2022-02-13] MEDS: PRAMIPEXOLE 0.125 MG TABLET PO (00:35)
[2022-02-13 00:37] LABS: NT Pro B Type NatriureticPept* 501 PG/mL (0-450)
[2022-02-13 00:40] LABS: Appearance Urine Clear (Clear); Bilirubin Urine Negative (Negative); Blood Urine Negative (Negative); Color Urine Yellow (Yellow); Glucose Urine Trace (Negative); Ketones Urine Negative (Negative); Leukocyte Esterase Urine 2+ (Negative); Nitrite Urine Negative (Negative); Protein Urine Negative (Negative); Specific Gravity Urine 1.015 (1.000-1.030); Urobilinogen Urine 0.2 (0.2-1.0); pH Urine 5.5 (5.0-8.5)
[2022-02-13 00:45] LABS: Procalcitonin* 0.07 ng/mL (<0.50)
[2022-02-13 00:46] LABS: C Reactive Protein* < 0.5 mg/dL (0.5-1.0)
[2022-02-13 00:49] LABS: Amorphous Sediment Urine Moderate; Bacteria Urine Moderate; Mucus Urine Moderate; RBC Urine 0-2 (0-2); Squamous Epithelial Cell Urine Few (None-Few)
[2022-02-13 01:00] VITALS: BP 144/66; PULSE 74; RESP 18; O2SAT 94
[2022-02-13] MEDS: cefTRIAXone 1 GM in 0.9 % SODIUM CHLORIDE Mini-bag 100 ML IVPB (01:39)
[2022-02-13] MEDS: OXYCODONE 5 MG TABLET PO (01:40)
[2022-02-13 03:17] VITALS: BP 129/77; PULSE 68; RESP 18
--- NOTE | 2022-02-14 12:39 | ED.NURSE ---
[facility] calling for prednisone prescription for patient (patient requesting from them). Per notes, was instymed by Dr. Mcghee. Called patient, she couldn't afford the instymed so just left without requesting medication be sent elsewhere. Dr. Mcghee here today, will send to [facility] pharmacy for patient. Patient informed. No further questions/concerns.
== END 2022-02-13 03:17 | disposition home or self-care (01) ==
PROVIDERS: Emergency Provider Family Medicine; PCP Family Medicine
DX: J84.10 Pulmonary fibrosis, unspecified (principal); R05.9 Cough, unspecified
CPT/HCPCS: 36415; 71046; 80048; 81001; 82803; 83880; 84145; 85025; 86140; 87086; 87502; 87634; 87635; 94640; 94761; 96365; 96375; 99284; 99285; A9270; J0696; J2930

== ENCOUNTER 2022-02-18 13:03 | Outpatient (CLI) | payer MEDICARE, OTHER, SELFPAY | END 2022-02-18 13:04 | disposition home or self-care (01) | LOC: WOUND 13:03 | PROVIDERS: PCP Family Medicine; Visit Provider Nurse Practitioner Family | DX: F42.4 Excoriation (skin-picking) disorder (principal); L85.3 Xerosis cutis | CPT/HCPCS: 99213 ==

== ENCOUNTER 2022-03-04 13:01 | Outpatient (CLI) | payer MEDICARE, OTHER, SELFPAY | END 2022-03-04 13:02 | disposition home or self-care (01) | LOC: WOUND 13:02 | PROVIDERS: PCP Family Medicine; Visit Provider Nurse Practitioner Family | DX: F42.4 Excoriation (skin-picking) disorder (principal); L85.3 Xerosis cutis | CPT/HCPCS: 99213 ==

== ENCOUNTER 2022-04-15 12:58 | Outpatient (CLI) | payer MEDICARE, SELFPAY | END 2022-04-15 12:59 | disposition home or self-care (01) | LOC: WOUND 12:58 | PROVIDERS: PCP Family Medicine; Visit Provider Nurse Practitioner Family | DX: L85.3 Xerosis cutis (principal); F42.4 Excoriation (skin-picking) disorder | CPT/HCPCS: 97597 ==

== ENCOUNTER 2022-04-29 13:28 | Outpatient (CLI) | payer MEDICARE, SELFPAY ==
[2022-04-29 17:14] LABS: Erythrocyte SedimentationRate* 49 mm/hr (2-20)
[2022-04-29 18:04] LABS: Free T4 Free Thyroxine* 1.45 ng/dL (0.70-1.85)
[2022-04-29 18:22] LABS: Ferritin* 28.3 ng/mL (11.1-264.0)
[2022-05-01 22:20] LABS: T3 Uptake 36 % (28-41)
[2022-05-01 23:00] LABS: TPO Antibody 0.6 IU/mL (0.0-9.0); Thyroglobulin Antibody <0.9 IU/mL (0.0-4.0)
[2022-05-02 16:28] LABS: Zinc, Serum/Plasma 91.7 ug/dL (60.0-120.0)
== END 2022-04-29 13:29 | disposition home or self-care (01) ==
LOC: WOUND 13:28
PROVIDERS: PCP Family Medicine; Visit Provider Nurse Practitioner Family
DX: F42.4 Excoriation (skin-picking) disorder (principal); L85.3 Xerosis cutis; R53.82 Chronic fatigue, unspecified; L30.9 Dermatitis, unspecified
CPT/HCPCS: 11042; 36415; 82728; 84439; 84443; 84479; 84630; 85651; 86376; 86800

== ENCOUNTER 2022-05-20 12:26 | Outpatient (CLI) | payer OTHER, SELFPAY | END 2022-05-20 12:27 | disposition home or self-care (01) | LOC: WOUND 12:26 | PROVIDERS: PCP Family Medicine; Visit Provider Nurse Practitioner Family | DX: F42.4 Excoriation (skin-picking) disorder (principal); L85.3 Xerosis cutis | CPT/HCPCS: 99213 ==

== ENCOUNTER 2022-05-27 13:14 | Outpatient (CLI) | payer MEDICARE, SELFPAY | END 2022-05-27 13:15 | disposition home or self-care (01) | LOC: WOUND 13:14 | PROVIDERS: PCP Family Medicine; Visit Provider Nurse Practitioner Family | DX: F42.4 Excoriation (skin-picking) disorder (principal); L85.3 Xerosis cutis; L30.9 Dermatitis, unspecified; R41.840 Attention and concentration deficit | CPT/HCPCS: 99214 ==

== ENCOUNTER 2022-06-18 15:31 | Outpatient (RCR) | payer MEDICARE, SELFPAY | END 2023-05-29 08:38 | disposition home or self-care (01) | LOC: MOW 15:31 | PROVIDERS: PCP Family Medicine; Visit Provider Family Medicine | DX: Z76.0 Encounter for issue of repeat prescription (principal) | CPT/HCPCS: S5170 ==

== ENCOUNTER 2022-06-24 13:25 | Outpatient (CLI) | payer MEDICARE, SELFPAY | END 2022-06-24 13:26 | disposition home or self-care (01) | LOC: WOUND 13:25 | PROVIDERS: PCP Family Medicine; Visit Provider Nurse Practitioner Family | DX: F42.4 Excoriation (skin-picking) disorder (principal); L85.3 Xerosis cutis | CPT/HCPCS: 99212 ==

== ENCOUNTER 2023-03-13 15:00 | Outpatient (RCR) | payer MEDICARE, SELFPAY | END 2023-07-11 23:59 | disposition home or self-care (01) | PROVIDERS: PCP Family Medicine; Visit Provider Family Medicine | DX: M54.2 Cervicalgia (principal); G89.29 Other chronic pain; R51.9 Headache, unspecified; Z51.89 Encounter for other specified aftercare | CPT/HCPCS: 97110; 97140; 97161; 97162 ==

== ENCOUNTER 2023-03-31 12:13 | Inpatient (IN) | payer MEDICARE, SELFPAY ==
[2023-03-31] VITALS (25 sets, daily range): BP systolic 100–139; BP diastolic 47–82; PULSE 60–96; RESP 16–24; TEMP 36.5–37.6; O2SAT 86–99; BMI 38.4
--- NOTE | 2023-03-31 12:36 | CRLHL7_ITS ---
For Patients: As a result of the Century Cures Act, medical imaging exams and procedure reports are released immediately into your electronic medical record. You may view this report before your referring provider. If you have questions, please contact your health care provider. INDICATION: Fall, on blood thinners, confusion. COMPARISON: None. TECHNIQUE: CT of the brain/head without the use of IV contrast. Multiplanar axial, coronal, and sagittal reformats were reconstructed. FINDINGS: Mild age related volume loss. Scattered small hypodensities consistent with chronic microvascular ischemic change. No acute or subacute territorial infarct. No intracranial hemorrhage. No mass, mass effect, or midline shift. The ventricles are normal in size and shape. No fracture or focal osseous lesion. The mastoid and middle ears are clear. Air-fluid level in the right maxillary sinus. The ostiomeatal unit is patent. No substantial mucosal thickening.. Included orbit and globe are normal. IMPRESSION: No intracranial hemorrhage or calvarial fracture. Please note that all CT scans at this facility use dose modulation, iterative reconstruction, and/or weight-based dosing when appropriate to reduce radiation dose to as low as reasonably achievable. Dictated by Marily Looney MD @ 03/31/2023 1:43:24 PM (Electronically Signed)
--- NOTE | 2023-03-31 12:38 | ED_ITS ---
HPI - General Adult General Date Seen: 03/31/23 Chief complaint: Fall/Minor Trauma Stated complaint: Fall Time Seen by Provider: 03/31/23 12:23 History of Present Illness HPI narrative: This is an 82-year-old female with a complex past history including chronic lo ngstanding back pain (dating back to the 1970s), longstanding shoulder pain status post bilateral shoulder replacements over a decade ago, or hypertension, restless leg syndrome, GERD, chronic anticoagulation (patient unsure why) who is brought to the ER today from her apartment where she lives independently by EMS. History is obtained by combination of EMS and from the patient. History is limited from the patient. For parts of the history the patient is an exceptionally detail historian, for instance she is able to recall that she had shoulder surgery in 2017 and that she has back pain dating back to 1974. For other parts of the history she seems very unreliable in confused. For instance she is not able to recall how long she has been feeling unsteady. According to the patient she has been unsteady since yesterday afternoon or evening. She does have some chronic on slit it is but noticed that she had to catch herself several times last night when she was cleaning up her kitchen. She went to bed last night and then woke up at about 1:00 a.m. to go to the bathroom. She was unsteady getting out of bed and then slipped off the edge of the bed down onto the floor. She could not get up off the floor. It sounds like her cell phone was on the bed spread. Finally this morning she pulled the bed spread off the bed and moved her cellphone within reach so she was able to call for help. EMS notes that she has had chronic trouble with mobility and that her visiting care providers have started the process to get her a medic alert bracelet, but it is not accomplished yet. Patient says she did not really fall, she does lift off the bed. She does not think she was injured. She also tells me that she had a flare-up in pain in both of her shoulders, especially her right shoulder, and had trouble using her arms overnight last night. This is why she could not get up. She was just too weak and having too much pain. She also has chronic low back pain affecting her upper, middle, lower back, that is not changed from baseline. She does take oxycodone for that twice a day. She is starting to feel withdrawal symptoms because she did not get her dose of oxycodone this morning. She is also noted to have a fever when we checked her vital signs upon arrival. When I ask her about that she says she thinks she felt feverish last night but d oes not recall fever over the past few days. She does have a cough this morning but does not really know if it has been going on for the past few days or not. She does not feel short of breath. She is not having chest pain. She does not recall any palpitations or specific dizziness or chest pain that led to her fall. She also has chronic severe pain in her head neck. This is unchanged from jovan verma. She has a printed copy of her medication list with her. According to that list her medications currently are Eliquis 5 mg b.i.d. The metformin 2000 mg q.a.m. Spironolactone 12.5 mg daily Furosemide 60 mg by mouth daily Omeprazole 20 mg by mouth daily Fluoxetine 20 mg by mouth daily Trazodone 100 mg q.h.s. Pramipexole 0.25 mg every evening Metoprolol 50 mg each evening Atorvastatin 40 mg daily Amitriptyline 20 mg q.h.s. Related Data Home Medications Medication Instructions Recorded Confirmed acetaminophen 500 mg capsule 500 mg PO Q6H PRN 10/21/21 03/05/23 amitriptyline 10 mg tablet 10 mg PO DAILY 10/21/21 03/05/23 apixaban 5 mg tablet (Eliquis) 5 mg PO DAILY 10/21/21 03/05/23 atorvastatin 40 mg tablet 40 mg PO DAILY 10/21/21 03/05/23 fluconazole 150 mg tablet 150 mg PO .weekly 10/21/21 03/05/23 fluoxetine 20 mg capsule 20 mg PO DAILY 10/21/21 03/05/23 furosemide 20 mg tablet 20 mg PO DAILY 10/21/21 03/05/23 glipizide 2.5 mg tablet, extended 2.5 mg PO DAILY 10/21/21 03/05/23 release 24 hr metformin 500 mg tablet,extended 500 mg PO DAILY 10/21/21 03/05/23 release 24 hr metoprolol succinate 25 mg 25 mg PO DAILY 07/25/22 12/07/23 tablet,extended release 24 hr nitrofurantoin 100 mg PO 10/21/21 03/05/23 monohydrate/macrocrystals 100 mg capsule omeprazole 20 mg capsule,delayed 20 mg PO DAILY 10/21/21 03/05/23 release oxycodone 5 mg tablet 5 mg PO 10/21/21 03/05/23 pramipexole 0.125 mg tablet 0.125 mg PO 10/21/21 03/05/23 spironolactone 25 mg tablet 12.5 mg PO DAILY 10/21/21 03/05/23 trazodone 50 mg tablet 50 mg PO 10/21/21 03/05/23 Previous Rx's Medication Instructions Recorded prednisone 20 mg tablet See Rx Instructions .Route 02/14/22 .COMPLEX #11 tabs Allergies Allergy/AdvReac Type Severity Reaction Status Date / Time latex Allergy Mild Rash Verified 03/05/23 10:15 metronidazole Allergy Unknown Diarrhea Verified 03/05/23 10:15 nickel Allergy Unknown Rash Verified 03/05/23 10:15 diazepam [From Valium] Allergy Agitation Verified 03/05/23 10:15 kiwi Allergy Verified 03/05/23 10:15 tizanidine Allergy Hallucinati Verified 03/05/23 10:15 ng cephalexin AdvReac Diarrhea Verified 03/05/23 10:15 codeine AdvReac nausea Verified 03/05/23 10:15 gabapentin AdvReac Anxiety Verified 03/05/23 10:15 meperidine [From Demerol] AdvReac Agitated Verified 03/05/23 10:15 morphine AdvReac Nausea Verified 03/05/23 10:15 PFSH PFSH Medical History Anxiety CAD (coronary artery disease) Diabetes mellitus GERD (gastroesophageal reflux disease) Hypertension Menieres disease Myocardial infarction Osteoarthritis Paroxysmal atrial fibrillation 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 Surgical History H/O cervical discectomy H/O shoulder replacement History of hysterectomy History of total knee arthroplasty Social History Smoking Status: Never smoker How often do you have a drink containing alcohol: never AUDIT-C Alcohol total score: 0 Non-prescribed substance use: denies use Caffeine: No Exam Narrative: Exam Narrative: Constitutional: Appears well-developed and well-nourished. Alert. Hard of hearing. Conversant but a somewhat disjointed historian. Non toxic. Requires assistance to sit up for posterior lung exam HENT: Head: Atraumatic. No depressed skull fracture, Raccoon Eyes, Lindsey's sign, or hemotympanum. Face normal. TMs normal Nose: Nose normal. Mouth/Throat: Oral mucosa is clear and moist. no trismus. Pharynx normal. Tonsils symmetric. No tonsillar enlargement, erythema, or exudate. She has multiple evidence for dental caries and dental fractures. Her right maxillary canine is broken down to the gums. She also has evidence for previous extractions or dental fractures of her left mandibular premolars. No definite gingival erythema, swelling, abscess. No Sathya angina. No facial swelling. Eyes: Conjunctivae normal. EOM normal. Pupils equal, round, and reactive to light. No scleral icterus. Neck: Normal range of motion. Neck supple. No tracheal deviation present. No posterior midline tenderness. Cardiovascular: Normal rate, regular rhythm. No gallop. No friction rub. No murmur heard. Symmetric radial artery pulses Pulmonary/Chest: Effort normal. Occasional dry cough. No stridor. No respiratory distress. No wheezes. Right basilar rales. No rhonchi . No tenderness. Abdominal: Soft. Bowel sounds normal. No distension. No mass. No tenderness. No rebound. No guarding. Musculoskeletal: She is able to sit up. She has no tenderness to midline palpation of the C, T, L-spine. RUE: Normal range of motion. No tenderness. No deformity LUE: Normal range of motion. No tenderness. No deformity RLE: Normal range of motion. No edema. No tenderness. No deformity LLE: Normal range of motion. No edema. No tenderness. No deformity Lymph: No cervical adenopathy. Neurological: Alert and oriented to person, place, and time. Normal strength. CN II-VII intact. No sensory deficit. GCS eye subscore is 4. GCS verbal subscore is 5. GCS motor subscore is 6. Normal coordination Skin: Skin is warm and dry. No rash noted. No pallor. Normal capillary refill. Psychiatric: Normal mood. Normal affect. She is polite. Const: Vital Signs, click to edit/add: Vital Signs - 24 hr 03/31/23 12:19 03/31/23 14:05 Temperature 99.6 F Pulse Rate [Pulse Oximeter] 80 Respiratory Rate 16 Blood Pressure [Ri ght Upper Arm] 110/68 Pulse Oximetry 95 95 Oxygen Delivery Me thod Room Air Nasal Cannula Oxygen Flow Rate 2 Course Vital Signs Vital signs: Initial Vital Signs Temperature 99.6 F 03/31/23 12:19 Temperature Source Temporal Artery Scan 03/31/23 12:19 Pulse Rate 80 03/31/23 12:19 Respiratory Rate 16 03/31/23 12:19 Blood Pressure 110/68 03/31/23 12:19 Blood Pressure Mean 82 03/31/23 12:19 Blood Pressure Position Supine 03/31/23 12:19 Pulse Oximetry 95 03/31/23 12:19 Oxygen Delivery Method Room Air 03/31/23 12:19 Vital Signs Temperature 99.6 F 03/31/23 12:19 Pulse Rate 80 03/31/23 12:19 Respiratory Rate 16 03/31/23 12:19 Blood Pressure 110/68 03/31/23 12:19 Pulse Oximetry 95 03/31/23 12:19 Oxygen Delivery Method Room Air 03/31/23 12:19 Temperature 99.6 F 03/31/23 12:19 Pulse Rate 80 03/31/23 12:19 Respiratory Rate 16 03/31/23 12:19 Blood Pressure 110/68 03/31/23 12:19 Pulse Oximetry 95 03/31/23 14:05 Oxygen Delivery Method Nasal Cannula 03/31/23 14:05 Oxygen Flow Rate 2 03/31/23 14:05 Medications Administered Medications: Discontinued Medications Generic Name Dose Route Start Last Admin Trade Name Freq PRN Reason Stop Dose Admin Dexamethasone 6 mg 03/31/23 14:09 03/31/23 14:43 Dexamethasone 4 Mg/Ml Vial IV 03/31/23 14:10 6 mg ONCE ONE Administration Sodium Chloride 1,000 mls @ 1,000 mls/hr 03/31/23 12:45 03/31/23 13:40 0.9 % Sodium Chloride 1000 Ml IV 03/31/23 13:44 1,000 mls/hr .Q1H REX Administration Oxycodone HCl 5 mg 03/31/23 12:36 03/31/23 13:30 Oxycodone 5 Mg Tablet PO 03/31/23 12:37 5 mg ONCE ONE Administration Medical Decision Making MDM Narrative Medical decision making narrative: 82-year-old female with a complex past history is brought to the ER today by EMS for evaluation after she slipped and fell getting out of bed last night and was too weak to get off the floor all night long. She was probably on the floor of her bedroom about 10 hours. She does report feeling a bit unsteady last night. She does have a fever upon presentation here. She does not recall any other antecedent fever over the past few days or any other symptoms leading up to this. Differential for fevers broad. She is positive for coronavirus which is the likely source. Urinalysis is negative. No evidence for any skin infection or cellulitis. No evidence for any septic arthritis. Blood cultures are pending but overall low suspicion for bacteremia. Chest x-ray shows subtle right-sided infiltrates that are probably related to COVID, not community-acquired pneumonia. At this point I do not think she needs empiric antibiotics. In terms of COVID, she is hypoxic here in the ER but is doing well on 2 L nasal cannula. No respiratory distress or progressive respiratory deterioration suggesting that she is immediately going to require BiPAP or endotracheal intubation. We will start her on steroids for hypoxia from COVID. Decadron 6 mg IV 1st dose given here in the ER. She did spend the night on the floor. Concern is for possible rhabdomyolysis. BMP shows normal kidney function. At this time CK is pending. IV fluids, 1 L IV bolus administered. Venous lactic mildly elevated 2.2, likely due to dehydration from not having any access to fluids overnight or this morning. 1 L IV fluid bolus. At this point no evidence for acute coronary syndrome. She does have a pacemaker that is functioning on her EKG. Troponin normal. No signs of pulmonary edema or CHF. We did evaluate for possible injuries from her event. She says she really did not fall but more slipped off the edge of the bed. She has no new pain. She does have chronic pain in her back for which we ordered oxycodone. She normally takes oxycodone twice a day. She does not have any new hip pain or any other evidence for long bone fracture. She did see mildly confused. Unclear if this is her baseline or possibly could be due to delirium from her COVID. Since she is on Eliquis, even though there is no outward signs of head trauma, we did do a head CT. CT is normal. On patient does have a small few small excoriations on her arms and legs and her back. She had called an manager hospitality the recently suspicious that she might have bedbugs. At this point no signs of bacterial superinfection. Rash not consistent with scabies or disseminated zoster or meningococcus see Sophy. Will need nursing and bed linen quarantine for bedbugs. Discussed with hospitalist, Dr. Fagan, at 3:30 p.m. and he accepts for admission. Lab Data Labs: Lab Results 03/31/23 03/31/23 Range/Units 12:53 13:31 WBC 5.96 (4.50-11.00) K/uL RBC 4.13 (4.00-5.20) m/uL Hgb 12.1 (12.0-16.0) gm/dL Hct 37.6 (33.0-51.0) % MCV 91 (80-100) fL MCH 29 (26-34) pg MCHC 32 (32-36) gm/dL RDW Coeff of Lucy 13.6 (11.5-15.5) % Plt Count 243 (140-440) K/uL Neut % (Auto) 68.0 (42.0-72.0) % Lymph % (Auto) 11.4 L (20-44) % [place] % (Auto) 19.8 H (0.0-11.0) % Eos % (Auto) 0.3 (0.0-7.0) % Baso % (Auto) 0.3 (0.0-3.0) % Neut # (Auto) 4.05 (1.7-7.0) K/uL Lymph # (Auto) 0.70 L (0.90-2.90) K/uL [place] # (Auto) 1.20 H (0.00-0.90) K/UL Eos # (Auto) 0.02 (0.00-0.50) K/uL Baso # (Auto) 0.02 (0.00-0.30) K/uL Abs Immat Gran (auto) 0.01 (0.00-0.30) K/uL Imm/Tot Granulo (auto) 0.2 % Sodium 136 (135-149) mmol/L Potassium 4.4 (3.6-5.1) mmol/L Chloride 101 (96-114) mmol/L Carbon Dioxide 27 (20-32) mmol/L Anion Gap 8 (7-15) mEq/L BUN 13 (7-30) mg/dL Creatinine 0.7 (0.5-1.5) mg/dL Estimated GFR 87 ml/min Glucose 179 H (60-115) mg/dL Lactate 2.2 H (0.5-1.9) mmol/L Calcium 8.6 (8.4-10.6) mg/dL Troponin I < 0.01 L (0.01-0.04) ng/mL Urine Color Yellow (Yellow) Urine Appearance Slightly Cloudy A (Clear) Urine pH 6.0 (5.0-8.5) Ur Specific [place] 1.025 (1.000-1.030) Urine Protein 1+ A (Negative) Urine Glucose (UA) Negative (Negative) Urine Ketones Negative (Negative) Urine Blood 1+ A (Negative) Urine Nitrite Negative (Negative) Urine Bilirubin Negative (Negative) Urine Urobilinogen 0.2 (0.2-1.0) Ur Leukocyte Esterase Trace A (Negative) Urine RBC 0-2 (0-2) Urine WBC 0-2 (0-5) Ur Squamous Epith Cells Few (None-Few) Urine Bacteria Few A (None) Urine Mucus Few A (None) SARS-CoV-2 (PCR) POSITIVE SARS-CoV-2 A (Negative) Influenza Type A (PCR) Negative PCR FLU A (Negative) Influenza Type B (PCR) Negative PCR FLU B (Negative) RSV (PCR) Negative PCR RSV (Negative) Imaging Data CT scan - head: Attestation: I have reviewed the pertinent imaging results. My impression: IMPRESSION: No intracranial hemorrhage or calvarial fracture. Chest x-ray: Attestation: I have reviewed the pertinent imaging results. My impression: possible right lower and middl elobe infiltrates ECG Data Attestation: I personally reviewed and interpreted this ECG as follows: Interpretation: Atrial sensed ventricular paced rhythm. Rate 80 [place] 114 QRS axis left axis deviation consistent with pacemaker. ST segment/T wave: Consistent with pacemaker. No ST segment elevation according to Sgarbossa QTc: 491 Discharge Plan Discharge Clinical Impression: COVID-19, Weakness, Fall Patient Disposition: Admitted As Observation
[2023-03-31 13:09] LABS: Appearance Urine Slightly Cloudy (Clear); Bilirubin Urine Negative (Negative); Blood Urine 1+ (Negative); Color Urine Yellow (Yellow); Glucose Urine Negative (Negative); Ketones Urine Negative (Negative); Leukocyte Esterase Urine Trace (Negative); Nitrite Urine Negative (Negative); Protein Urine 1+ (Negative); Specific Gravity Urine 1.025 (1.000-1.030); Urobilinogen Urine 0.2 (0.2-1.0)
[2023-03-31] MEDS: OXYCODONE 5 MG TABLET PO ×2 (13:30→17:21)
[2023-03-31 13:35] LABS: PCR FLU A Negative PCR FLU A (Negative); PCR FLU B Negative PCR FLU B (Negative); PCR RSV Negative PCR RSV (Negative)
[2023-03-31] MEDS: 0.9 % SODIUM CHLORIDE 1000 ml 1,000 ML IV (13:40)
[2023-03-31 13:43] LABS: Lactate* 2.2 mmol/L (0.5-1.9)
[2023-03-31 13:47] LABS: Basophils Absolute Auto 0.02 K/uL (0.00-0.30); Basophils Percent Auto 0.3 % (0.0-3.0); Eosinophils Absolute Auto 0.02 K/uL (0.00-0.50); Eosinophils Percent Auto 0.3 % (0.0-7.0); Hematocrit 37.6 % (33.0-51.0); Hemoglobin* 12.1 gm/dL (12.0-16.0); Immature Granulocytes Abs Auto 0.01 K/uL (0.00-0.30); Immature Granulocytes Pct Auto 0.2 %; Lymphocytes Percent Auto 11.4 % (20-44); Mean Corpuscular HGB Conc 32 gm/dL (32-36); Mean Corpuscular Hemoglobin 29 pg (26-34); Mean Corpuscular Volume 91 fL (80-100); Monocytes Percent Auto 19.8 % (0.0-11.0); Neutrophils Absolute Auto 4.05 K/uL (1.7-7.0); Platelet Count* 243 K/uL (140-440); RDW Coefficient of Variation % 13.6 % (11.5-15.5); Red Blood Count 4.13 m/uL (4.00-5.20); White Blood Count* 5.96 K/uL (4.50-11.00)
[2023-03-31 13:48] LABS: SARS PCR* POSITIVE SARS-CoV-2 (Negative)
[2023-03-31 13:59] LABS: Bacteria Urine Few; RBC Urine 0-2 (0-2); Squamous Epithelial Cell Urine Few (None-Few); WBC Urine 0-2 (0-5)
[2023-03-31 14:00] LABS: Slide Review Reflex No
[2023-03-31 14:00] LABS: Mucus Urine Few
--- NOTE | 2023-03-31 14:00 | ED.NURSE ---
Pt O2 sats ~84% on RA. notified, pt placed on 2L O2 NC. Pt notified designer/writer at this time that she likely has a bed bug infestation in her home and has numerous red circles/scabs on her arms and back that she has been itching. notified, EVS contacted for recommendations.
--- NOTE | 2023-03-31 14:09 | CRLHL7_ITS ---
For Patients: As a result of the Century Cures Act, medical imaging exams and procedure reports are released immediately into your electronic medical record. You may view this report before your referring provider. If you have questions, please contact your health care provider. INDICATION: COVID positive, weakness, hypoxia. TECHNIQUE: Chest 1 views. COMPARISON: 02/12/2022. FINDINGS: Unchanged position of the left subclavian biventricular pacemaker leads. Unchanged enlargement of the cardiac silhouette. Lungs are mildly hypoinflated. Bilateral interstitial opacities are similar to prior. Hazy left retrocardiac airspace opacity is slightly increased. No pleural effusion. No pneumothorax. No acute osseous abnormality. Partially visualized bilateral shoulder prostheses and lower cervical ACDF hardware. IMPRESSION: 1. Bilateral interstitial opacities, which may represent mild interstitial pulmonary edema versus atypical infection. 2. Minimal left basilar airspace opacity may reflect atelectasis versus developing pneumonia. 3. Cardiomegaly. Dictated by Francine Grace MD @ 03/31/2023 3:41:43 PM (Electronically Signed)
--- NOTE | 2023-03-31 14:24 | ED.NURSE ---
talked to reyes, infection control about pt having possible bed bugs. pt should shower, double bag clothes and be on lookout for black dots on sheets.
[2023-03-31 14:27] LABS: Troponin I* < 0.01 ng/mL (0.01-0.04)
--- NOTE | 2023-03-31 14:35 | ED.NURSE ---
Pt changed out of her home clothes and into hospital gown, all home clothing and belongings double bagged in a plastic bag. Linens removed from bed and placed in plastic bag. Bed, tray tables, and vitals equipment wiped down. Clean linens applied to bed.
[2023-03-31] MEDS: dexAMETHasone 4 MG/ML VIAL 6 MG IV (14:43)
[2023-03-31 14:52] LABS: Anion Gap 8 mEq/L (7-15); Blood Urea Nitrogen* 13 mg/dL (7-30); Calcium* 8.6 mg/dL (8.4-10.6); Carbon Dioxide* 27 mmol/L (20-32); Chloride* 101 mmol/L (96-114); Creatinine* 0.7 mg/dL (0.5-1.5); Estimated Glomerular Filt Rate 87 ml/min; Glucose* 179 mg/dL (60-115); Potassium* 4.4 mmol/L (3.6-5.1); Sodium* 136 mmol/L (135-149)
[2023-03-31 15:14] LABS: Creatine Kinase* 175 U/L (41-117)
--- NOTE | 2023-03-31 15:55 | ED.NURSE ---
Report called to Ramonita HERNÁNDEZ on M/S.
--- NOTE | 2023-03-31 17:14 | PM.IMHP1 ---
Hospitalist- H&P: HPI History of Present Illness Date Seen: 03/31/23 Chief complaint: Fall Narrative: Evon Hinton is a 82 year old woman who lives at the [place] at the [facility]. Her history is not entirely reliable. Patient indicates she woke up around 1 in the morning today to go to the bathroom. Was unsteady getting out of bed and slipped off the edge of the bed in down onto the floor. Unable to get up off the floor. Remain on the floor until this morning. Recalled that her cell phone was on the bed and thus she pulled the bedspread until the cellphone came to her this morning. Called for help. Claims did not strike her head or get heard in any way. No loss of consciousness. No injury per se. Was simply too weak to get up her own. Acknowledges feeling weaker last couple of days. Denies fevers, rigors, diaphoresis. Intermittent dry hacking cough. Nonproductive cough. No hemoptysis. Denies dyspnea at rest. Believes has had increasing sense of dyspnea with exertion. Has had itching of her torso, arms, legs off none since October 2022. In the emergency department today it appears as though she has bedbugs. This is news to her. Review of Systems Status of ROS: Reports: 10 or more systems reviewed and unremarkable except as noted in History and below Narrative: Denies chest heaviness, pressure, tightness, or pain. Denies dyspnea at rest, paroxysmal nocturnal dyspnea, orthopnea. No syncope or near syncope. No nausea or vomiting. States she is hungry. Has not had anything to eat since yesterday. Denies abdominal pain. Denies dependent edema. Generalized weakness without focal motor neurologic deficits. [facility] Medical History Chronic narcotic use ?F11.90 - Opioid use, unspecified, uncomplicated (ICD-10) Pulmonary nodule ?R91.1 - Solitary pulmonary nodule (ICD-10) Hyperlipidemia ?E78.5 - Hyperlipidemia, unspecified (ICD-10) Trigger ring finger of left hand ?M65.342 - Trigger finger, left ring finger (ICD-10) Morbid obesity ?E66.01 - Morbid (severe) obesity due to excess calories (ICD-10) Frequent falls ?R29.6 - Repeated falls (ICD-10) Vitamin D deficiency ?E55.9 - Vitamin D deficiency, unspecified (ICD-10) Pain medication agreement ?Z02.89 - Encounter for other administrative examinations (ICD-10) Constipation ?K59.00 - Constipation, unspecified (ICD-10) Insomnia ?G47.00 - Insomnia, unspecified (ICD-10) Major depressive disorder ?F32.9 - Major depressive disorder, single episode, unspecified (ICD-10) Irritable bowel syndrome ?K58.9 - Irritable bowel syndrome without diarrhea (ICD-10) Fibromyalgia ?M79.7 - Fibromyalgia (ICD-10) Restless leg syndrome ?G25.81 - Restless legs syndrome (ICD-10) DJD (degenerative joint disease), lumbosacral ?M47.817 - Spondylosis without myelopathy or radiculopathy, lumbosacral region (ICD-10) Cervicalgia ?M54.2 - Cervicalgia (ICD-10) Diabetes mellitus ?E11.9 - Type 2 diabetes mellitus without complications (ICD-10) 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 ?I50.20 - Unspecified systolic (congestive) heart failure (ICD-10) ?I25.10 - Atherosclerotic heart disease of [place] coronary artery without angina pectoris (ICD-10) Paroxysmal atrial fibrillation ?I48.0 - Paroxysmal atrial fibrillation (ICD-10) Osteoarthritis ?M19.90 - Unspecified osteoarthritis, unspecified site (ICD-10) Myocardial infarction ?I21.9 - Acute myocardial infarction, unspecified (ICD-10) Menieres disease ?H81.09 - Meniere's disease, unspecified ear (ICD-10) Hypertension ?I10 - Essential (primary) hypertension (ICD-10) GERD (gastroesophageal reflux disease) ?K21.9 - Gastro-esophageal reflux disease without esophagitis (ICD-10) CAD (coronary artery disease) ?I25.10 - Atherosclerotic heart disease of [place] coronary artery without angina pectoris (ICD-10) Anxiety ?F41.9 - Anxiety disorder, unspecified (ICD-10) Surgical History Hx of breast reduction, elective ?Z98.890 - Other specified postprocedural states (ICD-10) Status post cholecystectomy ?Z90.49 - Acquired absence of other specified parts of digestive tract (ICD-10) Status post biventricular pacemaker ?Z95.0 - Presence of cardiac pacemaker (ICD-10) H/O shoulder replacement ?Z96.619 - Presence of unspecified artificial shoulder joint (ICD-10) History of hysterectomy ?Z90.710 - Acquired absence of both cervix and uterus (ICD-10) H/O cervical discectomy ?Z98.890 - Other specified postprocedural states (ICD-10) History of total knee arthroplasty ?Z96.659 - Presence of unspecified artificial knee joint (ICD-10) Family History Father Heart disease Social History What is your current living situation?: I presently have a place to live Problems where you live: pests, such as bugs, ants, or mice Problems where you live details: possibly has bed bugs recent seasoning mixer. In the past 12 months, utilities in danger of being shut off: no In past 12 months, lack of transportation kept you from medical appts, meetings, work, or getting things needed for daily living: yes In the past 12 mos, have been you worried that your food would run out before you had money to buy more?: sometimes true In the past 12 mos, the food you bought just didn't last and you didn't have money to buy more?: sometimes true Highest level of school completed/degree received: Bachelor's degree Smoking Status: Never smoker How often do you have a drink containing alcohol: never AUDIT-C Alcohol total score: 0 Non-prescribed substance use: denies use Caffeine: Yes How often does anyone, including family, friends and others, physically hurt you: never How often does anyone, including family, friends and others, insult or talk down to you: never How often does anyone, including family, friends and others, threaten you with harm: never How often does anyone, including family, friends and others, scream or curse at you: never service: No Meds Home Medications and Allergies Home Medications Medication Instructions Recorded Confirmed Type acetaminophen 500 mg capsule 1,000 mg PO BID 10/21/21 03/31/23 History amitriptyline 10 mg tablet 20 mg PO HS 10/21/21 03/31/23 History apixaban 5 mg tablet (Eliquis) 5 mg PO BID 10/21/21 03/31/23 History atorvastatin 40 mg tablet 40 mg PO DAILY 10/21/21 03/31/23 History fluoxetine 20 mg capsule 20 mg PO DAILY 10/21/21 03/31/23 History furosemide 20 mg tablet 60 mg PO DAILY 10/21/21 03/31/23 History metformin 500 mg tablet,extended 2,000 mg PO DAILY 10/21/21 03/31/23 History release 24 hr metoprolol succinate 25 mg 50 mg PO DAILY 10/21/21 03/31/23 History tablet,extended release 24 hr omeprazole 20 mg capsule,delayed 20 mg PO DAILY 10/21/21 03/31/23 History release oxycodone 5 mg tablet 5 - 10 mg PO TID PRN 10/21/21 03/31/23 History pramipexole 0.125 mg tablet 0.25 mg PO QPM 10/21/21 03/31/23 History spironolactone 25 mg tablet 12.5 mg PO DAILY 10/21/21 03/31/23 History trazodone 50 mg tablet 100 mg PO HS 10/21/21 03/31/23 History albuterol sulfate 90 mcg/actuation 2 inh inhalation Q4-6H PRN 03/31/23 03/31/23 History aerosol inhaler (Ventolin HFA) betamethasone dipropionate 0.05 % 1 applic topical BID PRN 03/31/23 03/31/23 History topical cream dulaglutide 3 mg/0.5 mL 3 mg subcut Q7D 03/31/23 03/31/23 History subcutaneous pen injector (Trulicity) hydroxyzine HCl 10 mg tablet 10 mg PO Q8H PRN anxiety 03/31/23 03/31/23 History Allergies Allergy/AdvReac Type Severity Reaction Status Date / Time latex Allergy Mild Rash Verified 03/05/23 10:15 metronidazole Allergy Unknown Diarrhea Verified 03/05/23 10:15 nickel Allergy Unknown Rash Verified 03/05/23 10:15 diazepam [From Valium] Allergy Agitation Verified 03/05/23 10:15 kiwi Allergy Verified 03/05/23 10:15 tizanidine Allergy Hallucinati Verified 03/05/23 10:15 ng cephalexin AdvReac Diarrhea Verified 03/05/23 10:15 codeine AdvReac nausea Verified 03/05/23 10:15 gabapentin AdvReac Anxiety Verified 03/05/23 10:15 meperidine [From Demerol] AdvReac Agitated Verified 03/05/23 10:15 morphine AdvReac Nausea Verified 03/05/23 10:15 Exam Narrative: Exam Narrative: I examine her in the emergency department. Very hard of hearing with vision intact. Able to carry on a conversation with her. Alert and oriented to self, place, time, in part to situation. Friendly, articulate, cooperative. Tympanic membranes normal bilaterally. Midline nasal septum. Dry buccal mucosa. Dentition in fair repair. No icterus. No conjunctival injection. Conjugate gaze. Neck is supple. Midline trachea. No adenopathy in the head and neck region. Lungs are clear to auscultation. Heart tones with regular rhythm. Abdomen is obese with active bowel sounds, benign. Extremities without lymphedema. Moves all 4 extremities. Skin with excoriation thompson on upper and lower extremities and dorsum. Const: Vital Signs, click to edit/add: Vital Signs - 24 hr 03/31/23 12:19 03/31/23 12:40 03/31/23 13:07 Temperature 99.6 F Pulse Rate 77 96 Pulse Rate [Pulse Oximeter] 80 Pulse Rate [Right Radial] Respiratory Rate 16 Blood Pressure Blood Pressure [Ri ght Arm] Blood Pressure [Ri ght Upper Arm] 110/68 Pulse Oximetry 95 90 90 Oxygen Delivery Me thod Room Air Oxygen Flow Rate 03/31/23 13:15 03/31/23 13:39 03/31/23 13:41 Temperature Pulse Rate 80 77 80 Pulse Rate [Pulse Oximeter] Pulse Rate [Right Radial] Respiratory Rate Blood Pressure 100/47 L Blood Pressure [Ri ght Arm] Blood Pressure [Ri ght Upper Arm] Pulse Oximetry 91 89 92 Oxygen Delivery Me thod Oxygen Flow Rate 03/31/23 13:45 03/31/23 14:00 03/31/23 14:02 Temperature Pulse Rate 78 76 78 Pulse Rate [Pulse Oximeter] Pulse Rate [Right Radial] Respiratory Rate Blood Pressure 115/76 Blood Pressure [Ri ght Arm] Blood Pressure [Ri ght Upper Arm] Pulse Oximetry 94 86 L 87 L Oxygen Delivery Me thod Oxygen Flow Rate 03/31/23 14:05 03/31/23 14:15 03/31/23 14:33 Temperature Pulse Rate 77 73 Pulse Rate [Pulse Oximeter] Pulse Rate [Right Radial] Respiratory Rate Blood Pressure Blood Pressure [Ri ght Arm] Blood Pressure [Ri ght Upper Arm] Pulse Oximetry 95 87 L 93 Oxygen Delivery Me thod Nasal Cannula Nasal Cannula Oxygen Flow Rate 2 2 03/31/23 14:54 03/31/23 15:00 03/31/23 15:02 Temperature Pulse Rate 77 78 76 Pulse Rate [Pulse Oximeter] Pulse Rate [Right Radial] Respiratory Rate Blood Pressure 115/63 Blood Pressure [Ri ght Arm] Blood Pressure [Ri ght Upper Arm] Pulse Oximetry 96 98 99 Oxygen Delivery Me thod Nasal Cannula Nasal Cannula Nasal Cannula Oxygen Flow Rate 2 2 2 03/31/23 15:03 03/31/23 15:15 03/31/23 15:30 Temperature Pulse Rate 75 75 78 Pulse Rate [Pulse Oximeter] Pulse Rate [Right Radial] Respiratory Rate Blood Pressure Blood Pressure [Ri ght Arm] Blood Pressure [Ri ght Upper Arm] Pulse Oximetry 98 96 96 Oxygen Delivery Me thod Nasal Cannula Nasal Cannula Nasal Cannula Oxygen Flow Rate 2 2 2 03/31/23 15:48 03/31/23 16:00 03/31/23 16:02 Temperature Pulse Rate 76 78 76 Pulse Rate [Pulse Oximeter] Pulse Rate [Right Radial] Respiratory Rate Blood Pressure 139/77 Blood Pressure [Ri ght Arm] Blood Pressure [Ri ght Upper Arm] Pulse Oximetry 94 97 96 Oxygen Delivery Me thod Nasal Cannula Nasal Cannula Nasal Cannula Oxygen Flow Rate 2 2 2 03/31/23 16:15 03/31/23 16:36 03/31/23 16:36 Temperature Pulse Rate 77 Pulse Rate [Pulse Oximeter] Pulse Rate [Right Radial] 73 Respiratory Rate 20 20 Blood Pressure Blood Pressure [Ri ght Arm] 129/79 Blood Pressure [Ri ght Upper Arm] Pulse Oximetry 92 94 95 Oxygen Delivery Me thod Nasal Cannula Nasal Cannula Nasal Cannula Oxygen Flow Rate 2 2 2 Documenting provider has reviewed patient's vital signs: yes Hospitalist - H&P: Result Labs Labs: Short CBC 03/31/23 Range/Units 13:31 WBC 5.96 (4.50-11.00) K/uL Hgb 12.1 (12.0-16.0) gm/dL Hct 37.6 (33.0-51.0) % Plt Count 243 (140-440) K/uL BMP 03/31/23 13:31 Sodium 136 Potassium 4.4 Chloride 101 Carbon Dioxide 27 BUN 13 Creatinine 0.7 Glucose 179 H Calcium 8.6 Cardiac Enzymes 03/31/23 Range/Units 13:31 Total Creatine Kinase 175 H (41-117) U/L Troponin I < 0.01 L (0.01-0.04) ng/mL Urine 03/31/23 Range/Units 12:53 Urine Color Yellow (Yellow) Urine Appearance Slightly Cloudy A (Clear) Urine pH 6.0 (5.0-8.5) Ur Specific [place] 1.025 (1.000-1.030) Urine Protein 1+ A (Negative) Urine Glucose (UA) Negative (Negative) Assessment and Plan Assessment and plan (1) Fall: Status: Acute (2) Weakness: Problem comment: - acute on chronic - ordinarily uses a walker at all times - physical therapy and occupational therapy to consult and assist Status: Acute (3) COVID-19: Problem comment: - remdesivir IV x3 days given her increased risk of complication - dexamethasone 6 mg once daily given hypoxemia Status: Acute (4) Chronic narcotic use: Problem comment: -for chronic musculoskeletal pain -averages use of three 5 mg tabs of oxycodone daily, 1 in the morning and 2 in the evening Status: Acute (5) Bedbug bite: Problem comment: - no secondary infections - precautionary measures being taken and recommended to the patient Status: Acute (6) Encephalopathy due to COVID-19 virus: Status: Acute (7) Acute hypoxic respiratory failure: Problem comment: - likely due to COVID although does have morbid obesity - oxygen supplementation for now Status: Acute Plan 1. Reviewed impression with patient 2. Problem directed interventions as specified above 3. Continue with other supportive efforts including sliding scale insulin for blood sugar management 4. Patient agreeable with above stated plans and recommendations
[2023-03-31] MEDS: INSULIN ASPART 100 UNIT/ML SUBCUT ×2 (17:20→21:02)
[2023-03-31] MEDS: PRAMIPEXOLE 0.125 MG TABLET 0.25 MG PO (17:20)
[2023-03-31 17:48] LABS: Lactate* 1.7 mmol/L (0.5-1.9)
--- NOTE | 2023-03-31 18:36 | PC.NURSE ---
End of Shift Note: Patient was admitted to the unit from the ER. Patient had fallen at home and was possibly down on the floor for 10 hours before she could get someone to help her. She is COVID + and has several little possible bug bites on her legs, arms and her back. Recently had an wincher at her apartment to hopefully get rid of the bugs. All of her belongs have been double bagged due to possibly bed bugs. She needs to have a shower yet this evening she currently has her remdesirvir running otherwise would have accomplished this. She is ambulating with SBA to the bathroom with a walker. She has been instructed to call if she needs to get up due to fall history at home. She is very [place] but appears to understand the instructions she has been given. She also has chronic back and neck pain which she received an oxycodone for when she first arrived to the unit. Will continue to monitor.
[2023-03-31] MEDS: ACETAMINOPHEN 500 MG TABLET 1000 MG PO (21:01)
[2023-03-31] MEDS: AMITRIPTYLINE HCL 10 MG TABLET 20 MG PO (21:02)
[2023-03-31] MEDS: TRAZODONE HCL 50 MG TABLET 100 MG PO (21:03)
[2023-03-31] MEDS: SODIUM CHLORIDE 0.9 % (FLUSH) 10 ML SYRINGE 5 ML IVF (21:03)
[2023-04-01] VITALS (7 sets, daily range): BP systolic 104–150; BP diastolic 61–72; PULSE 60–66; RESP 17–20; TEMP 36.3–36.6; O2SAT 94–97
[2023-04-01] MEDS: OXYCODONE 5 MG TABLET PO ×4 (00:14→20:27)
[2023-04-01 07:27] LABS: HCO3 VBG 28 mmol/L (21-28); PCO2 VBG 51 mmHG (40-50); PO2 VBG 32.2 mmHG (25-47)
[2023-04-01 07:35] LABS: Hemoglobin* 12.2 gm/dL (12.0-16.0); Mean Corpuscular HGB Conc 32 gm/dL (32-36); Mean Corpuscular Hemoglobin 29 pg (26-34); Mean Corpuscular Volume 91 fL (80-100); Platelet Count* 254 K/uL (140-440); Red Blood Count 4.17 m/uL (4.00-5.20); White Blood Count* 4.86 K/uL (4.50-11.00)
[2023-04-01 07:39] LABS: Slide Review Reflex No
[2023-04-01 08:10] LABS: Chloride* 105 mmol/L (96-114); Potassium* 4.3 mmol/L (3.6-5.1); Sodium* 136 mmol/L (135-149)
[2023-04-01 08:13] LABS: Anion Gap 6 mEq/L (7-15); Blood Urea Nitrogen* 16 mg/dL (7-30); Calcium* 8.3 mg/dL (8.4-10.6); Carbon Dioxide* 25 mmol/L (20-32); Creatine Kinase* 429 U/L (41-117); Creatinine* 0.6 mg/dL (0.5-1.5); Est. Creatinine Clearance* 33.29; Estimated Glomerular Filt Rate 90 ml/min; Glucose* 193 mg/dL (60-115); Phosphorus* 4.5 mg/dL (2.5-4.5)
[2023-04-01 08:30] LABS: Procalcitonin* 0.08 ng/mL (<0.50)
[2023-04-01 08:35] LABS: NT Pro B Type NatriureticPept* 1480 pg/mL; Troponin I* < 0.01 ng/mL (0.01-0.04)
[2023-04-01 08:44] LABS: C Reactive Protein* 3.4 mg/dL (0.5-1.0)
[2023-04-01] MEDS: ACETAMINOPHEN 500 MG TABLET 1000 MG PO ×3 (10:18→20:25)
[2023-04-01] MEDS: METOPROLOL SUCCINATE (XL) 25 MG TAB 50 MG PO (10:19)
[2023-04-01] MEDS: OMEPRAZOLE 20 MG CAPSULE DR PO (10:19)
[2023-04-01] MEDS: FUROSEMIDE 20 MG TABLET 60 MG PO (10:20)
[2023-04-01] MEDS: METFORMIN ER 500 MG 2000 MG PO (10:24)
[2023-04-01] MEDS: FLUOXETINE HCL 20 MG CAPSULE PO (10:27)
[2023-04-01] MEDS: SPIRONOLACTONE 25 MG TABLET 12.5 MG PO (10:30)
[2023-04-01] MEDS: INSULIN ASPART 100 UNIT/ML SUBCUT ×4 (10:35→20:31)
[2023-04-01] MEDS: SODIUM CHLORIDE 0.9 % (FLUSH) 10 ML SYRINGE 5 ML IVF ×2 (13:59→20:30)
[2023-04-01] MEDS: LIDOCAINE 5% PATCH 1 PATCH TRANSDERMA (14:16)
--- NOTE | 2023-04-01 15:28 | PC.NURSE ---
patient told me when I was giving her a shower that if she could get all eight of her oxy she would take all eight because she has nothing to live for. She also refused to have her hair washed, and when I tried to put her knitting stuff in a bag for the bed bugs she snapped on me and told me to not bag that up that that is her life line. -RN
[2023-04-01] MEDS: dexAMETHasone 2 MG TABLET 6 MG PO (16:00)
[2023-04-01 17:20] LABS: HCO3 VBG 21 mmol/L (21-28); PCO2 VBG 31 mmHG (40-50); PO2 VBG 67.7 mmHG (25-47); pH VBG 7.437 (7.32-7.43)
--- NOTE | 2023-04-01 17:41 | PM.IMPN1 ---
Progress Note: A&P Assessment and plan (1) Fall: Problem details: -no traumatic findings -ambulating with PT and OT without difficulty or pain Status: Acute (2) Weakness: Problem details: - acute on chronic - ordinarily uses a walker at all times - physical therapy and occupational therapy to consult and assist - no further acute therapy needed per report. Ambulating at baseline Status: Acute (3) COVID-19: Problem details: - remdesivir IV x3 days given her increased risk of complication - dexamethasone 6 mg once daily given hypoxemia - no longer requiring oxygen, could discontinue Status: Acute (4) Chronic narcotic use: Problem details: -for chronic musculoskeletal pain -averages use of three 5 mg tabs of oxycodone daily, 1 in the morning and 2 in the evening 04/01: Patient initially told me she takes 5 tablets daily, later told a nurse 8 tablets. Regardless, is not taking her medication as prescribed by her PCP which is dangerous. Told the patient that pain management here would have to be based off of her prescription by her PCP. Status: Acute (5) Bedbug bite: Problem details: - no secondary infections - precautionary measures being taken and recommended to the patient - patient refusing to follow policy, hiding her belongings, unwilling to send to nurse design engineering manager Status: Acute (6) Encephalopathy due to COVID-19 virus: Problem details: - no evidence of acute confusion - concern for underlying slowly worsening cognitive impairment likely, compensating with current behaviors Status: Acute (7) Acute hypoxic respiratory failure: Problem details: - resolved - likely due to COVID although does have morbid obesity - oxygen supplementation for now Status: Acute (8) Behavior disorder: Problem details: -history of depression, anxiety, chronic pain -suspect undiagnosed, or if not accessible in records, history of personality disorder. Uncooperative with staff. Refusing to comply. Hostile. Certainly manipulative. Lying and caught in the act of doing so, accusing staff of saying things that have not been said. We did alert patient advocate of behavior Status: Acute Plan Likely discharge tomorrow as likely will remain medically stable no longer needing need for hospitalization. Time Spent With Patient Total time spent: Total time spent caring for the patient today was 120 minutes with multiple visits to her room. This includes time spent for the visit reviewing the chart, time spent during the visit, time spent after the visit and documentation and planning in coordination of care. Subjective Date Seen: 04/01/23 Interval history: After introducing myself to the patient for the 1st time this morning she begins her conversation by complaining that her oxycodone needs to be scheduled twice daily with an as needed dose during the day or in the evening as she cheats by taking an extra dose when needed. She tells me she is in chronic pain from head to toe and can not wait for a nurse to respond to her light to bring her her medications. She tells me that she has left her apartment door open on occasion as she is afraid of falling and no one will find her. She tells me she will reduce the amount of oxycodone she is using as she know she only has a set amount of pills in each prescription and has to make them last. She can also tell when she is withdrawing from the narcotic. When I try to address this with her after she has told me this, she becomes very hostile and defensive telling me that she never said that she cheats though she did use this word 3 times in the conversation. It was then very difficult to redirect her to talking about her breathing or oral intake. She remained focused on her pain telling me that her pain is 10.9 and needs her narcotics scheduled as she takes them at home not as prescribed by her PCP. We then discussed the issue of her active bed bug infestation. She denied having any infestation actively and that was something of the past. Several hours later, in the afternoon, I asked Cristobal our nurse design engineering manager to visit her with me. Nursing staff told me prior to reentering the room that she was calling me names after I left the 1st time. When we entered the room, she told Cristobal that she refused to be seen by me in the hospital and told me on 2 separate occasions that I should go to med school to be a lecture because I do not listen and only interrupt her. Cristobal attempted to have a conversation with her as well but she started by interrupting him. Over the course of no less than 30 minutes the patient lectured os on how her oxycodone needed to be scheduled. She told us we were not God and did not have the right to make changes in her medication. Patient also told us that she would no longer listen to policies and refused to follow bedbug protocols. We did offer her the opportunity to return to her own home S her hypoxemia had resolved. She refused and told us she would probably need to stay till tomorrow or even Thursday. She then told us that I had told her her room need to be fumigated before returning home. This however was never a conversation I had with her. She dismissed us and told that she needed to lie down in her bed as she was tired. Occupational therapy saw the patient, clearing her from any further therapy. She was able to ambulate in the room without difficulty. Exam Narrative: Exam Narrative: PHYSICAL EXAM General: Defensive, hostile, difficult to redirect, otherwise sitting in a chair on room air in NAD HEENT: Normocephalic, atraumatic, sclera white, EOMI, oral mucosa moist Cardiovascular: RRR, S1S2. No pitting edema Pulmonary: CTA bilaterally without rhonchi, rales, expiratory wheezes. No dyspnea Neurological: Alert, as above Extremities: No gross joint deformity or swelling. AROMI. Neurovascularly intact Skin: Warm, dry. Const: Vital Signs, click to edit/add: Vital Signs - 24 hr 03/31/23 20:45 03/31/23 20:45 03/31/23 20:45 Temperature 98.3 F Pulse Rate [Right Radial] 70 70 Respiratory Rate 22 22 Blood Pressure [Ri ght Arm] 128/65 Pulse Oximetry 96 96 Oxygen Delivery Me thod Nasal Cannula Nasal Cannula Oxygen Flow Rate 3 3 03/31/23 23:00 04/01/23 03:00 04/01/23 07:00 Temperature 97.7 F 97.4 F L Pulse Rate [Right Radial] 60 60 Respiratory Rate 24 20 Blood Pressure [Ri ght Arm] 111/82 134/65 Pulse Oximetry 95 97 95 Oxygen Delivery Me thod Nasal Cannula Nasal Cannula Room Air Oxygen Flow Rate 2 2 04/01/23 11:00 04/01/23 16:00 Temperature 97.8 F 97.7 F Pulse Rate [Right Radial] 66 65 Respiratory Rate 20 17 Blood Pressure [Ri ght Arm] 104/61 117/62 Pulse Oximetry 95 95 Oxygen Delivery Me thod Room Air Room Air Oxygen Flow Rate Labs Labs: Laboratory Results - last 24 hr 03/31/23 04/01/23 04/01/23 17:32 06:45 17:19 WBC 4.86 RBC 4.17 Hgb 12.2 Hct 38.0 MCV 91 MCH 29 MCHC 32 Plt Count 254 VBG pH 7.340 7.437 H VBG pCO2 51 H 31 L VBG pO2 32.2 67.7 H VBG HCO3 28 21 Sodium 136 Potassium 4.3 Chloride 105 Carbon Dioxide 25 Anion Gap 6 L BUN 16 Creatinine 0.6 Estimated Creat Clear 33.29 Estimated GFR 90 Glucose 193 H Lactate 1.7 Calcium 8.3 L Phosphorus 4.5 Magnesium 2.0 Total Creatine Kinase 429 H Troponin I < 0.01 L C-Reactive Protein 3.4 H NT-Pro-B Natriuret Pep 1480 Procalcitonin 0.08
[2023-04-01] MEDS: PRAMIPEXOLE 0.125 MG TABLET 0.25 MG PO (18:50)
[2023-04-01] MEDS: APIXABAN 5 MG TABLET PO (20:27)
[2023-04-01] MEDS: TRAZODONE HCL 50 MG TABLET 100 MG PO (20:27)
[2023-04-01] MEDS: AMITRIPTYLINE HCL 10 MG TABLET 20 MG PO (20:30)
--- NOTE | 2023-04-01 21:56 | PC.NURSE ---
Patient alert and oriented. Given scheduled and PRN pain medications for all over pain rated 10/10. No complaint of SOB. O2 sats within normal limits on room air.
[2023-04-02] MEDS: OXYCODONE 5 MG TABLET PO ×3 (00:09→13:35)
[2023-04-02] MEDS: ACETAMINOPHEN 500 MG TABLET 1000 MG PO ×2 (00:09→13:36)
[2023-04-02 02:41] VITALS: BP 128/80; PULSE 60; RESP 18; TEMP 36.6; O2SAT 92
[2023-04-02] MEDS: OMEPRAZOLE 20 MG CAPSULE DR PO (06:33)
[2023-04-02 07:00] VITALS: O2SAT 99
--- NOTE | 2023-04-02 07:32 | PC.NURSE ---
: pt very particular with cares. When auto service writer asked if she could take a?BG pt replied with, ? only if you bring me my oxy?. Garage Attendant asked questions relating to pain, pt stated ?everything hurts from head to toe? ?i am already feeling withdrawal symptoms like restless legs? pt stated she wouldn't be able to sleep if she didn't get her 2 oxy before bed. MD was updated on patients symptoms, auto service writer was given a one time order for 5mg oxy, pt acceptable. No c/o pain since admin. ? Sleep menu provided & pt requested sleepy time tea, a snack, and relaxing music. Scattered red spots on pts back, likely bed bug bites. ?
[2023-04-02] MEDS: INSULIN ASPART 100 UNIT/ML SUBCUT ×2 (08:37→13:40)
[2023-04-02] MEDS: APIXABAN 5 MG TABLET PO (08:41)
[2023-04-02] MEDS: FUROSEMIDE 20 MG TABLET 60 MG PO (08:41)
[2023-04-02] MEDS: SPIRONOLACTONE 25 MG TABLET 12.5 MG PO (08:43)
[2023-04-02] MEDS: METFORMIN ER 500 MG 2000 MG PO (08:44)
[2023-04-02] MEDS: METOPROLOL SUCCINATE (XL) 25 MG TAB 50 MG PO (08:44)
[2023-04-02] MEDS: FLUOXETINE HCL 20 MG CAPSULE PO (08:44)
[2023-04-02 08:59] VITALS: BP 138/93; PULSE 73; RESP 18; TEMP 36.6; O2SAT 96
[2023-04-02] MEDS: LIDOCAINE 5% PATCH 1 PATCH TRANSDERMA (13:41)
[2023-04-02 15:00] VITALS: PULSE 73; RESP 18; O2SAT 96
--- NOTE | 2023-04-02 15:37 | PC.SOCIAL ---
Addendum entered by IMMANUEL Barclay 04/02/23 15:44: Received a phone call from [employer] informing that pt has a [employer] Installer, Concepcion Shirley, and she can be reached at [phone]. [employer] will send a copy of pt's care plan to this worker. Original Note: Discharge planning- Phone call to pt to discuss discharge plans. Pt informs that she is upset because the MD does not think she needs a johnny psych and pt believes she does. Pt does not expand on why she needs johnny psych when asked. Informed pt that she is medically cleared for discharge and this worker asks pt if she has a person that can provide her with a ride home. Pt states she was told by MD that she was medically stable, however, she does not feel like she should leave the hospital. Pt talks about her laundry that needs to be completed at home in detail. Pt is upset with several staff members that do not believe what she is saying. This worker again discusses transportation with pt and pt informs she does not have a ride home and wants to stay in the hospital. Informed pt that she is medically cleared for discharge and this worker will discuss with nursing about getting transportation set through non-emergency EMS. This worker confirms with pt that this worker will call pt back with information on transportation. Pt voices concerns about not being ready to leave since her nurse has not washed her hair. Informed pt that when she discharges staff ensures that she is dressed and ready prior to discharge. Per Nursing, they will set EMS for transportation. Update received that EMS will arrive within the hour. Phone call to pt to provide update. Social work was informed by nursing that there will be a delay in discharge. Social work will follow up as needed.
--- NOTE | 2023-04-02 15:39 | P.DS_ITS ---
DS: Providers Provider Date Seen: 04/02/23 Date of admission: 04/01/23 11:25 Primary care physician: Jesus Mistry MD Admitting Clinician: Ebenezer Fagan MD Consults: 03/31/23 16:32 Consult to Physical Therapy [CONS] Routine Comment: Reason(s) for PT Consult:: Evaluate and Treat Any Restrictions?:: No Restrictions Consult to Rn Licensed Practical [CONS] Routine Comment: Reason for Consult:: Discharge Planning Needs 03/31/23 16:37 Consult to Occupational Therapy [CONS] Routine Comment: Reason(s) for OT Consult:: Evaluate and Treat Any Restrictions?:: No Restrictions 03/31/23 16:55 Consult to Rn Licensed Practical [CONS] Routine Comment: Reason for Consult:: Discharge Planning Needs Psycho-Social Needs Possible SNF placement 03/31/23 17:06 Consult to Occupational Therapy [CONS] Routine Comment: Reason(s) for OT Consult:: Difficulty Managing ADLs Any Restrictions?:: No Restrictions Consult to Physical Therapy [CONS] Routine Comment: Reason(s) for PT Consult:: Evaluate Ambulation Evaluate and Treat Any Restrictions?:: No Restrictions Attending Physician on discharge: Karina [facility], [facility]astasiaC [facility] Date of Discharge: 04/02/23 DS: Diagnosis Discharge Diagnosis (1) Fall: Status: Acute Problem details: -no traumatic findings Ambulating with PT and OT without difficulty or pain, no further acute services needed (2) Weakness: Status: Acute Problem details: - acute on chronic - ordinarily uses a walker at all times - physical therapy and occupational therapy consulted no further acute therapy needed per report. Ambulating at baseline prior to discharge (3) COVID-19: Status: Acute Problem details: - remdesivir IV x3 days given her increased risk of complication - dexamethasone 6 mg once daily given hypoxemia - no longer requiring oxygen, could discontinue Therapy is discontinued prior to discharge, no longer meeting criteria, patient reported her family thought she should not take remdesivir anyway. (4) Chronic narcotic use: Status: Acute Problem details: -for chronic musculoskeletal pain -averages use of three 5 mg tabs of oxycodone daily, 1 in the morning and 2 in the evening 1/3: Patient initially told me she takes 5 tablets daily, later told a nurse 8 tablets. Regardless, is not taking her medication as prescribed by her PCP which is dangerous. Told the patient that pain management here would have to be based off of her prescription by her PCP. Patient continue to argue and demand increasing doses of oxycodone based on how she takes them at home. Despite discussion of dangers of using opioids outside of what is prescribed, including falls, confusion, depressed breathing, patient will resume her usual dosing on discharge. Advised to follow-up with PCP for ongoing chronic pain management. (5) Bedbug bite: Status: Acute Problem details: During hospital course, patient refusing to follow policy on controlling infestations, hiding her belongings (6) Acute hypoxic respiratory failure: Status: Acute Problem details: - resolved - likely due to COVID although does have morbid obesity On room air 04/01-04/02. Ambulating without desaturating. Dexamethasone discontinued (7) Behavior disorder: Status: Acute Problem details: -history of depression, anxiety, chronic pain -suspect undiagnosed, or if not accessible in records, history of personality disorder, query malingering. Uncooperative with staff. Refusing to comply. Hostile. Certainly manipulative. Lying and caught in the act of doing so, accusing staff of saying things that have not been said. We did alert patient advocate of behavior DS: Summary Hospital Course Hospital Course: [age] year old female past medical history significant for chronic pain, chronic narcotic use, diabetes mellitus, hypertension was admitted to the medical floor for hypoxia in setting of COVID. Course of care and details as noted above. Hypoxia related to COVID resolved shortly after admission. Therapies including dexamethasone and remdesivir no longer deemed necessary and discontinued. On 04/01/23, patient was advised she was medically clear for discharge, no longer requiring hospitalization. At that time she told myself and nurse purchasing manager that she had no intentions of leaving and would stay until or perhaps even Thursday. Physical therapy and occupational therapy a weighted patient, reporting it was not necessary for further acute therapies. On 04/02, patient was again advised she was medically clear for discharge and no longer requiring hospitalization. Patient told us she could not return to her home as she had 4 loads of laundry to could be completed and there was too much clutter - something she had been living with for quite some time. I was also told that the patient had a rn case mgr and resources in place for new housing but had refused it, this was again information supplied to me by staff not by the patient. We did have a discussion with the patient that we could not keep her in the hospital until her home was cleaned or her laundry was completed. customer services supervisor consulted patient, discussed current to resources that she has available to her prior to admission to the hospital including her case management. On discharge, patient refused to discharge, asking to appeal, and then by report told staff in the room that she was suicidal. On my repeat exam, patient told us she would just go home and make sure no one could find her body and be able to bring her to the hospital to have her stomach pumped. She then told that she did not have a plan. Suicidal precautions were put into place and a [facility] assessment was completed. I personally spoke with the pipe stress engineer following the interview and he said the patient had no active suicidal thoughts or plans, but was mad that she was not getting her narcotics or receiving the care she expected in the hospital. Of note, the patient did bring up suicide the evening before when she was not getting her oxycodone as well. The pipe stress engineer told me that the patient reported she felt safe to return her her own home and was signing a safety contract with him. I told him that she was medically cleared to be discharged from the hospital. The pipe stress engineer told me she did not meet criteria for inpatient geriatric psychiatry placement. And in fact would be safe to return home. The patient was witnessed to sign the safety contract by other staff. Patient was offered discharge again following this assessment and accepted. A ride was put into place for her. The patient was reminded to follow up with her rn case mgr and the resource that she has in place to find other housing and further assistance. Status at Discharge Overall status at discharge: patient is back to baseline Time Spent with Patient Time attestation: Total time spent providing and/or coordinating discharge services: Specific discharge activities: Total time spent caring for the patient today was 180 minutes. This includes time spent for the visit reviewing the chart, time spent during the visit, time spent after the visit and documentation and planning in coordination of care. Exam Narrative: Exam Narrative: PHYSICAL EXAM General: Remained disruptive, uncooperative Cardiovascular: RRR Pulmonary: No dyspnea on room air Neurological: Alert, evidence of personality disorder, malingering, manipulative behavior Skin: Warm, dry. Const: Vital Signs, click to edit/add: Vital Signs - 24 hr 04/01/23 16:00 04/01/23 19:00 04/01/23 23:00 Temperature 97.7 F 97.5 F L Pulse Rate [Right Radial] 65 66 61 Respiratory Rate 17 18 18 Blood Pressure [Ri ght Arm] 117/62 129/66 150/72 H Pulse Oximetry 95 94 95 Oxygen Delivery Me thod Room Air Room Air Room Air 04/01/23 23:00 04/01/23 23:00 04/02/23 02:41 Temperature 97.9 F Pulse Rate [Right Radial] 60 Respiratory Rate 18 18 18 Blood Pressure [Ri ght Arm] 128/80 Pulse Oximetry 95 92 Oxygen Delivery Me thod Room Air Room Air 04/02/23 08:59 Temperature 97.8 F Pulse Rate [Right Radial] 73 Respiratory Rate 18 Blood Pressure [Ri ght Arm] 138/93 H Pulse Oximetry 96 Oxygen Delivery Me thod Room Air DS: Data Data Completed and Pending Labs on day of discharge: Labs from last 24 hours 04/01/23 17:19 VBG pH 7.437 H VBG pCO2 31 L VBG pO2 67.7 H VBG HCO3 21 Preliminary micro results at discharge 03/31/23 13:31 Blood Culture - Preliminary Blood NO GROWTH AFTER 48 HOURS 03/31/23 13:35 Blood Culture - Preliminary Blood NO GROWTH AFTER 48 HOURS Discharge Plan Discharge Disposition: Home, Self-Care Date of Admission: 04/01/23 11:25 Attending Provider on Discharge: Karina Frank Primary Care Provider: Jesus Mistry Condition: Improved Anticipated Discharge Date/Time: 04/02/23 08:25 Discharge Medications: Continued atorvastatin 40 mg tablet 40 mg PO DAILY amitriptyline 10 mg tablet 20 mg PO HS acetaminophen 500 mg capsule 1,000 mg PO BID Eliquis 5 mg tablet 5 mg PO BID fluoxetine 20 mg capsule 20 mg PO DAILY furosemide 20 mg tablet 60 mg PO DAILY metformin 500 mg tablet extended release 24 hr 2,000 mg PO DAILY metoprolol succinate 25 mg tablet extended release 24 hr 50 mg PO DAILY omeprazole 20 mg capsule,delayed release(DR/EC) 20 mg PO DAILY Patient Comments: TAKE ONE CAPSULE BY MOUTH DAILY oxycodone 5 mg tablet 5 - 10 mg PO TID PRN pramipexole 0.125 mg tablet 0.25 mg PO QPM spironolactone 25 mg tablet 12.5 mg PO DAILY Patient Comments: TAKE 1/2 TABLET BY MOUTH DAILY trazodone 50 mg tablet 100 mg PO HS albuterol sulfate [Ventolin HFA] 90 mcg/actuation HFA aerosol inhaler 2 inh inhalation Q4-6H PRN betamethasone dipropionate 0.05 % cream 1 applic topical BID PRN Trulicity 3 mg/0.5 mL pen injector 3 mg subcut Q7D hydroxyzine HCl 10 mg tablet 10 mg PO Q8H PRN (Reason: anxiety) Discharge Orders: Discharge Order (Routine); Ordered 04/02/23 Ordered By: Karina Frank Patient Education: Bed Bugs (GEN), COVID-19 (Coronavirus Disease 2019) (GEN) Additional Instructions: You no longer require oxygen at rest or with activity. You do not need further medications for this. Continue your home medications. Follow up with your PCP. Activity Level: Activity as Tolerated Discharge Diet: Diabetic Follow Up Appointments: Jesus Mistry MD [Primary Care Provider] - 04/07/23 2:05 am (Post hospital follow up, Covid +) [facility]
--- NOTE | 2023-04-02 15:50 | PC.NURSE ---
While discussing the discharge plan with the patient and IM from medicare she were verbalizing how unhappy she was and that she was very close to be being suicidal. She explained she did not have much to live for and little happiness. She would chose to do it when she was home alone, and ensure no one would find her and possibly pump her stomach and stop her but did not know what she would take. A this point the science writer of this note asked are you suicidal to which she replied yes, patients RN was present and witnessed this exchange to which we reported it to Karina LOMBARDI and Dr. Garcia who initiated suicide precautions.
--- NOTE | 2023-04-02 19:54 | PC.NURSE ---
shift note: Pt verbally expressing feelings of hopelessness. Pt states she has had 75 years of feeling like nobody has helped her. Pt sitting in recliner with blanket over her head. Pt appears withdrawn at times. changes of plan of care witnessed with Karina Frank and Cristobal HERNÁNDEZmanager trading in room. IV dc'd intact. Belongings double bagged and sent with pt at dc.
--- NOTE | 2023-04-03 15:01 | PC.SOCIAL ---
Social work: Called pt's [facility] Technical Buyer, Concepcion Schaffer [phone], and left message stating pt was discharged yesterday and requesting call back if any additional information is needed.
== END 2023-04-02 17:05 | disposition home or self-care (01) | DRG 177 ==
LOC: ED 15:05 → MEDSURG 16:23
PROVIDERS: Admitting Provider Internal Medicine; Emergency Provider Emergency Medicine; PCP Family Medicine; Visit Provider Internal Medicine
DX: U07.1 COVID-19 (principal); J96.01 Acute respiratory failure with hypoxia; F11.20 Opioid dependence, uncomplicated; I50.20 Unspecified systolic (congestive) heart failure; W06.XXXA Fall from bed, initial encounter; Y92.032 Bedroom in apartment as the place of occurrence of the external cause; R53.1 Weakness; S40.862A Insect bite (nonvenomous) of left upper arm, initial encounter; S40.861A Insect bite (nonvenomous) of right upper arm, initial encounter; S80.862A Insect bite (nonvenomous), left lower leg, initial encounter; S80.861A Insect bite (nonvenomous), right lower leg, initial encounter; F91.9 Conduct disorder, unspecified; G89.29 Other chronic pain; M54.9 Dorsalgia, unspecified; Z95.0 Presence of cardiac pacemaker; E66.01 Morbid (severe) obesity due to excess calories; F32.9 Major depressive disorder, single episode, unspecified; W57.XXXA Bitten or stung by nonvenomous insect and other nonvenomous arthropods, initial encounter; Y92.003 Bedroom of unspecified non-institutional (private) residence as the place of occurrence of the external cause; E11.9 Type 2 diabetes mellitus without complications; Z79.85 Long-term (current) use of injectable non-insulin antidiabetic drugs; Z79.84 Long term (current) use of oral hypoglycemic drugs; I48.0 Paroxysmal atrial fibrillation; Z79.01 Long term (current) use of anticoagulants; F41.9 Anxiety disorder, unspecified; Z68.38 Body mass index [BMI] 38.0-38.9, adult; I11.0 Hypertensive heart disease with heart failure; Z91.148 Patient's other noncompliance with medication regimen for other reason; E86.0 Dehydration
CPT/HCPCS: 36415; 70450; 71045; 80048; 81001; 82550; 82803; 82962; 83605; 83735; 83880; 84100; 84145; 84484; 85025; 85027; 86140; 87040; 87086; 87631; 94761; 97162; 97165; 99284; 99285; A0425; A0428; A0429; A9270; J1100; J7030; J7050

== ENCOUNTER 2023-10-05 19:25 | Outpatient (CLI) | payer MEDICARE, SELFPAY ==
--- OUTSIDE RECORDS SUMMARY | 2023-10-27 01:50 | XMS_ITS | Encounter Summary ---
Author Organization [facility] Address [address] [place] [address] Care Team Providers Care Full Stack Web Developer Name Role Phone Chris Abreu MD Primary Care Provider David ramires Encounter Details Date Type Department Care Team (Late st Contact Info) Description 02/04/2012 Correspondence External to [facility], Provider LAB RESULTS TO PT Social History [...] as of this encounter Progress Notes * [facility], Provider - 02/04/2012 12:00 AM CST OGRAPHS CURATOR documented in this encounter Plan of Treatment Not on file documented as of this encounter Visit Diagnoses Not on filedocumented in this encounter Care Teams Full Stack Web Developer Relationship Specialty Start Date End Date Chris Abreu MD PCP - General Family Practice 04/27/17 documented as of this encounter
--- OUTSIDE RECORDS SUMMARY | 2023-10-27 01:50 | XMS_ITS | Clinical Summary ---
Author Organization [facility] Address [address] [place] [address] Care Team Providers Care Central Supply Clerk Name Role Phone Chris Abreu MD [...] transition of care or referral. 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 04/27/2017 Degenerative disc [...] IIV3 (Trivalent) F sallie Highdose, 65+ Yrs (85[address]) 02/16/2017,02/04/2010 Influenza, Unspecified Formulation 01/16/1998, PPSV23 (Pneumovax) [...] Comments Blood Pressure 151/73 05/22/2017 6:19 AM MECHANICAL SHOVEL OPERATOR Pulse 62 05/22/2017 6:19 AM MECHANICAL SHOVEL OPERATOR Temperature 36.4 ??C (97.6 ??F) 05/22/2017 6:19 AM CS T Respiratory Rate 16 05/22/2017 6:19 AM MECHANICAL SHOVEL OPERATOR Oxygen Saturation 92% 05/01/2017 12: 00 PM MECHANICAL SHOVEL OPERATOR Inhaled Oxygen Concentration - - Weight 108.6 kg (239 lb 6.7 oz) 04/29/2017 3:57 PM MECHANICAL SHOVEL OPERATOR Height 157.5 cm (5' 2) 08/14/2017 1:54 PM CDT Body Mass Index 43.79 04/23/2017 12:15 PM MECHANICAL SHOVEL OPERATOR Plan of Treatment Health Maintenance Due Date [...] METABOLIC PANEL Specified Time 05/01/2017 8:23 AM MECHANICAL SHOVEL OPERATOR HGB A1C STAT 04/27/2017 11:05 AM MECHANICAL SHOVEL OPERATOR ALBUMIN/CREAT RATIO Routine 01/20/2013 12:37 PM CDT DIABETES MELLITUS TYPE II-UNCOMPL LIPID PANEL & DIRECT LDL (IF NEEDED) Routine 01/20/2013 12:37 PM CDT Hyperlipidemia LDL goal < 100 from Last 3 Months or Most Recently Relevant to Health Maintenance Results * (ABNORMAL) Basic Metabolic Panel (05/01/2017 8:23 AM MECHANICAL SHOVEL OPERATOR) Creatinine Serum 0.64 0.55 - 1.02 mg/dL [...] race of the patient. 05/01/2017 8:23 AM MECHANICAL SHOVEL OPERATOR 05/01/2017 9:03 AM MECHANICAL SHOVEL OPERATOR Narrative PN SOFT - 05/01/2017 9:41 AM MECHANICAL SHOVEL OPERATOR Performed at [facility], [address] [place] [address] CLIA number [id number] Wiliam Agudelo MD LAB_1 PN SOFT [address] [place] [address] * (ABNORMAL) HGB A1C (04/27/2017 11:05 AM MECHANICAL SHOVEL OPERATOR) HGB A1C 7.6(H) 4.0 - 5.6 % PN SOFT 04/27/2017 11:0 5 AM MECHANICAL SHOVEL OPERATOR 04/27/2017 11:12 AM MECHANICAL SHOVEL OPERATOR Narrative HAIR ALLEN - 04/27/2017 12:15 PM MECHANICAL SHOVEL OPERATOR Performed at [address] [address] CLIA number [id number] Ck Gonzalez DO LAB_1 Performing Organization Address [facility] Co de Phone Number ALEJANDRO [address] [place] [address] * (ABNORMAL) LIPID PANEL AND DIRECT LDL(IF [...] 6:39 PM CDT Performed at [facility], [address] [place] [address] ??[id number] Treasure Valdez MD LAB_1 Performing Organization Address City/[facility] Co de Phone Number [facility] [phone] * MICROALB/CREAT RATIO (01/20/2013 12:37 PM CDT) Albumin, Urine, Random <0.5 mg/dl [facility] Creatinine,Ur Random 252.3 mg/dl [facility] Alb/Creat Ratio, Urine, Random <2 <30 mg/g creatinine [facility] Urine specimen (specimen) 01/20/2013 12:37 PM CDT 01/20/2013 12:48 PM CDT Narrative [facility] - 01/20/2013 4:23 PM CDT Performed at [facility], [address] [place] [address] ??[id number] Treasure Valdez MD LAB_1 [facility] [phone] from Last 3 Months or Most Recently Relevant to Health Maintenance Advance Directives * Full Code (Latest Code Status on File) Date Activated Date Inactivated Comments 04/27/2017 6:09 PM 05/01/2017 4:33 PM Care Teams Central Supply Clerk Relationship Specialty Start Date End Date Chris Abreu MD PCP - General Family Practice 04/27/17
--- OUTSIDE RECORDS SUMMARY | 2023-10-27 01:50 | XMS_ITS | Encounter Summary ---
Author Organization [facility] Address [address] [place] [address] Care Team Providers Care Paste Worker Name Role Phone Chris Abreu MD Primary Care Provider Unava ilable Encounter Details Date Type Department Care Team (Latest Contact Info) Description 10/14/1999 Orders Only Patrick Wiggins MD [address] [place] [address] Social History Tobacco Use Types [...] on filedocumented in this encounter Care Teams Paste Worker Relationship Specialty Start Date End Date Chris Abreu MD PCP - General Family Practice 04/27/17 documented as of this encounter
--- OUTSIDE RECORDS SUMMARY | 2023-10-27 01:50 | XMS_ITS | Encounter Summary ---
[facility] Organization [facility] Address [address] [place] [address] Care Team Providers Care Assistant Head Cashier Name Role Phone Chris Abreu MD Primary Care Provider Unava ilable Encounter Details Date Type Department Care Team (Latest Contact Info) Description 10/30/1999 Orders Only Patrick Wiggins MD [address] [place] [address] Social History Tobacco Use Types [...] filedocumented in this encounter Care Teams Assistant Head Cashier Relationship Specialty Start Date End Date Chris Abreu MD PCP - General Family Practice 04/27/17 documented as of this encounter
--- OUTSIDE RECORDS SUMMARY | 2023-10-27 01:51 | XMS_ITS | Encounter Summary ---
Author Organization [facility] Address [address] [address] Care Team Providers Care Supervisor Securities Vault Name Role Phone Chris Abreu MD Primary Care Provider David ilvira Encounter Details Date Type Department Care Team (Latest Contact Info) Description 03/05/1998 Orders Only Jimi Sharp MD [address] [place], [place] [address] Social History Tobacco Use Types Packs/Day Years [...] filedocumented in this encounter Care Teams Supervisor Securities Vault Relationship Specialty Start Date End Date Chris Abreu MD PCP - General Family Practice 04/27/17 documented as of this encounter
--- OUTSIDE RECORDS SUMMARY | 2023-10-27 01:51 | XMS_ITS | Encounter Summary ---
Author Organization [facility] Address [address], [place] [address] Care Team Providers Care Social Sciences Professor Name Role Phone Chris Abreu MD Primary Care Provider David ilvira Encounter Details Date Type Department Care Team (Latest Contact Info) Description 12/01/1997 Orders Only Jimi Sharp MD [address] [place], [place] [address] Social History Tobacco Use Types Packs/Day Years [...] on filedocumented in this encounter Care Teams Social Sciences Professor Relationship Specialty Start Date End Date Chris Abreu MD PCP - General Family Practice 04/27/17 documented as of this encounter
--- OUTSIDE RECORDS SUMMARY | 2023-10-27 01:51 | XMS_ITS | Encounter Summary ---
Author Organization [facility] Address [address], [place] [address] Care Team Providers Care Business Process Consultant Name Role Phone Chris Abreu MD Primary Care Provider David ilvira Encounter Details Date Type Department Care Team (Latest Contact Info) Description 06/21/1997 Orders Only Amaad Stubbs MD [address] [place] [address] Social History Tobacco Use Types [...] on filedocumented in this encounter Care Teams Business Process Consultant Relationship Specialty Start Date End Date Chris Abreu MD PCP - General Family Practice 04/27/17 documented as of this encounter
--- OUTSIDE RECORDS SUMMARY | 2023-10-27 01:51 | XMS_ITS | Encounter Summary ---
Author Organization [facility] Address [address] [place] [address] Care Team Providers Care Senior Java J2Ee Developer Name Role Phone Chris Abreu MD Primary Care Provider Unava ilable Encounter Details Date Type Department Care Team (Latest Contact Info) Description 03/08/1998 Orders Only Patrick Wiggins MD [address] [place] [address] Social History Tobacco Use Types [...] filedocumented in this encounter Care Teams Senior Java J2Ee Developer Relationship Specialty Start Date End Date Chris Abreu MD PCP - General Family Practice 04/27/17 documented as of this encounter
--- OUTSIDE RECORDS SUMMARY | 2023-10-27 01:51 | XMS_ITS | Encounter Summary ---
Author Organization [facility] Address [address] [place] [address] Care Team Providers Care Director Data Name Role Phone Chris Abreu MD Primary Care Provider Unava ilable Encounter Details Date Type Department Care Team (Latest Contact Info) Description 03/22/1998 Orders Only Patrick Wiggins MD [address] [place] [address] Social History Tobacco Use Types [...] filedocumented in this encounter Care Teams Director Data Relationship Specialty Start Date End Date Chris Abreu MD PCP - General Family Practice 04/27/17 documented as of this encounter
--- OUTSIDE RECORDS SUMMARY | 2023-10-27 01:51 | XMS_ITS | Encounter Summary ---
Author Organization [facility] Address [address] [place] [address] Care Team Providers Care Senior Water Resources Engineer Name Role Phone Chris Abreu MD Primary Care Provider David ramires Encounter Details Date Type Department Care Team (Latest Contact Info) Description 09/11/1998 Orders Only Rah Weber [place] [id number] [place] [address] Social History Tobacco Use Types Packs/Day Years [...] filedocumented in this encounter Care Teams Senior Water Resources Engineer Relationship Specialty Start Date End Date Chris bAreu MD PCP - General Family Practice 04/27/17 documented as of this encounter
--- OUTSIDE RECORDS SUMMARY | 2023-10-27 01:51 | XMS_ITS | Encounter Summary ---
Author Organization [facility] Address [address] [place] [address] Care Team Providers Care Field Operations Technician Name Role Phone Chris Abreu MD Primary Care Provider Unava ilable Encounter Details Date Type Department Care Team (Latest Contact Info) Description 02/26/1998 Orders Only Patrick Wiggins MD [address] [place], [place] [address]481 Social History Tobacco Use Types Packs/Day Years [...] on filedocumented in this encounter Care Teams Field Operations Technician Relationship Specialty Start Date End Date Chris Abreu MD PCP - General Family Practice 04/27/17 documented as of this encounter
--- OUTSIDE RECORDS SUMMARY | 2023-10-27 01:51 | XMS_ITS | Encounter Summary ---
Author Organization [facility] Address [address], [place] [address] Care Team Providers Care Waste Picker Name Role Phone Chris Abreu MD Primary Care Provider David ilvira Encounter Details Date Type Department Care Team (Latest Contact Info) Description 12/13/1997 Orders Only Jimi Sharp MD [address] [place], [place] [address] Social History Tobacco Use Types Packs/Day Years [...] on filedocumented in this encounter Care Teams Waste Picker Relationship Specialty Start Date End Date Chris Abreu MD PCP - General Family Practice 04/27/17 documented as of this encounter
--- OUTSIDE RECORDS SUMMARY | 2023-10-27 01:51 | XMS_ITS | Encounter Summary ---
Author Organization [facility] Address [address] [address] Care Team Providers Care Broadcast Transmitter Operator Name Role Phone Chris Abreu MD Primary Care Provider David ilvira Encounter Details Date Type Department Care Team (Latest Contact Info) Description 11/22/1997 Orders Only Jimi Sharp MD [address] [place], [place] [phone] Social History Tobacco Use Types Packs/Day Years [...] on filedocumented in this encounter Care Teams Broadcast Transmitter Operator Relationship Specialty Start Date End Date Chris Abreu MD PCP - General Family Practice 04/27/17 documented as of this encounter
--- OUTSIDE RECORDS SUMMARY | 2023-10-27 01:51 | XMS_ITS | Encounter Summary ---
Author Organization [facility] Address [address] [place] [address] Care Team Providers Care Truss Designer Name Role Phone Chris Abreu MD Primary Care Provider Unava ilable Encounter Details Date Type Department Care Team (Latest Contact Info) Description 08/16/1997 Notes/Orders David [place] [facility] [address] [place], [place] [phone] Social History Tobacco Use Types Packs/Day Years Used Date Smoking Tobacco: Never Assessed Sex and Gender Information Value Date Recorded Sex Assigned at Not on file Gender Identity Not on file Sexual Orientation Not on file documented as of this encounter Plan of Treatment Not on file documented as of this encounter Visit Diagnoses Not on filedocumented in this encounter Care Teams Truss Designer Relationship Specialty Start Date End Date Chris Abreu MD PCP - General Family Practice 04/27/17 documented as of this encounter
--- OUTSIDE RECORDS SUMMARY | 2023-10-27 01:51 | XMS_ITS | Encounter Summary ---
Author Organization [facility] Address [address] [place] [address] Care Team Providers Care Director Of Optimization Name Role Phone Chris Abreu MD Primary Care Provider Unava ilable Encounter Details Date Type Department Care Team (Latest Contact Info) Description 10/06/1997 Orders Only Pee Aragon MD [address] [place], [place] [address] Social History Tobacco Use Types Packs/Day Years [...] in this encounter Care Teams Director Of Optimization Relationship Specialty Start Date End Date Chris Abreu MD PCP - General Family Practice 04/27/17 documented as of this encounter
--- OUTSIDE RECORDS SUMMARY | 2023-10-27 01:51 | XMS_ITS | Encounter Summary ---
Author Organization [facility] Address [address] [place] [address] Care Team Providers Care Sales Enablement Analyst Name Role Phone Chris Abreu MD Primary Care Provider Unava ilable Encounter Details Date Type Department Care Team (Latest Contact Info) Description 04/29/1997 Orders Only Ankit Winkler MD [address] [place] [id number] Social History Tobacco Use Types Packs/Day Years Used Date Smoking Tobacco: Never Assessed Sex and Gender Information Value Date Recorded Sex Assigned at Not on file Gender Identity Not on file Sexual Orientation Not on file documented as of this encounter Plan of Treatment Not on file documented as of this encounter Visit Diagnoses Not on filedocumented in this encounter Care Teams Sales Enablement Analyst Relationship Specialty Start Date End Date Chris Abreu MD PCP - General Family Practice 04/27/17 documented as of this encounter
--- OUTSIDE RECORDS SUMMARY | 2023-10-27 01:51 | XMS_ITS | Encounter Summary ---
Author Organization [facility] Address [address], [place] [address] Care Team Providers Care Bookstore Manager Name Role Phone Chris Abreu MD Primary Care Provider David ilvira Encounter Details Date Type Department Care Team (Latest Contact Info) Description 01/01/1998 Orders Only Jimi Sharp MD [address] [place], [place] [address] Social History Tobacco Use Types Packs/Day Years [...] on filedocumented in this encounter Care Teams Bookstore Manager Relationship Specialty Start Date End Date Chris Abreu MD PCP - General Family Practice 04/27/17 documented as of this encounter
--- OUTSIDE RECORDS SUMMARY | 2023-10-27 01:51 | XMS_ITS | Encounter Summary ---
Author Organization [facility] Address [address] [place] [address] Care Team Providers Care Signal Maintenance Technician Name Role Phone Chris Abreu MD Primary Care Provider Unava ilable Encounter Details Date Type Department Care Team (Latest Contact Info) Description 03/07/1997 Orders Only Dino Pierce MD [address] [facility] [place], [place] [phone] Social History Tobacco Use Types Packs/Day Years Used Date Smoking Tobacco: Never Assessed Sex and Gender Information Value Date Recorded Sex Assigned at Not on file Gender Identity Not on file Sexual Orientation Not on file documented as of this encounter Plan of Treatment Not on file documented as of this encounter Visit Diagnoses Not on filedocumented in this encounter Care Teams Signal Maintenance Technician Relationship Specialty Start Date End Date Chris Abreu MD PCP - General Family Practice 04/27/17 documented as of this encounter
--- OUTSIDE RECORDS SUMMARY | 2023-10-27 01:51 | XMS_ITS | Encounter Summary ---
Author Organization [facility] Address [address], [place] [address] Care Team Providers Care Embedded Software Programmer Name Role Phone Chris Abreu MD Primary Care Provider Unava ilable Encounter Details Date Type Department Care Team (Latest Contact Info) Description 08/22/1998 Orders Only Siva Oneal MD [address] [phone] Social History Tobacco Use Types Packs/Day Years [...] on filedocumented in this encounter Care Teams Embedded Software Programmer Relationship Specialty Start Date End Date Chris Abreu MD PCP - General Family Practice 04/27/17 documented as of this encounter
--- OUTSIDE RECORDS SUMMARY | 2023-10-27 01:51 | XMS_ITS | Encounter Summary ---
Author Organization [facility] Address [address], [place] [address] Care Team Providers Care Sas Programmer Analyst Name Role Phone Chris Abreu MD Primary Care Provider David ilvira Encounter Details Date Type Department Care Team (Latest Contact Info) Description 02/20/1997 Orders Only Amada Stubbs MD [address] [place] [address] Social History Tobacco Use Types [...] on filedocumented in this encounter Care Teams Sas Programmer Analyst Relationship Specialty Start Date End Date Chris Abreu MD PCP - General Family Practice 04/27/17 documented as of this encounter
--- OUTSIDE RECORDS SUMMARY | 2023-10-27 01:51 | XMS_ITS | Encounter Summary ---
Author Organization [facility] Address [address] [place] [address] Care Team Providers Care Rail Grinder Name Role Phone Chris Abreu MD Primary Care Provider Unava ilable Encounter Details Date Type Department Care Team (Latest Contact Info) Description 07/24/1997 Orders Only Ankit Winkler MD [address] [place] [id number] Social History Tobacco Use Types Packs/Day Years Used Date Smoking Tobacco: Never Assessed Sex and Gender Information Value Date Recorded Sex Assigned at Not on file Gender Identity Not on file Sexual Orientation Not on file documented as of this encounter Plan of Treatment Not on file documented as of this encounter Visit Diagnoses Not on filedocumented in this encounter Care Teams Rail Grinder Relationship Specialty Start Date End Date Chris Abreu MD PCP - General Family Practice 04/27/17 documented as of this encounter
--- OUTSIDE RECORDS SUMMARY | 2023-10-27 01:51 | XMS_ITS | Encounter Summary ---
Author Organization [facility] Address [address] [place] [address] Care Team Providers Care Steel Plate Caulker Name Role Phone Chris Abreu MD Primary Care Provider David ilable Encounter Details Date Type Department Care Team (Latest Contact Info) Description 08/23/1997 Orders Only Tono Dunbar Jr., MD [facility] [address] [place], [place] [address] Social History Tobacco Use Types Packs/Day Years Used Date Smoking Tobacco: Never Assessed Sex and Gender Information Value Date Recorded Sex Assigned at Not on file Gender Identity Not on file Sexual Orientation Not on file documented as of this encounter Plan of Treatment Not on file documented as of this encounter Visit Diagnoses Not on filedocumented in this encounter Care Teams Steel Plate Caulker Relationship Specialty Start Date End Date Chris Abreu MD PCP - General Family Practice 04/27/17 documented as of this encounter
--- OUTSIDE RECORDS SUMMARY | 2023-10-27 01:51 | XMS_ITS | Encounter Summary ---
Author Organization [facility] Address [address], [place] [address] Care Team Providers Care Envelope Sealer Operator Name Role Phone Chris Abreu MD [...] on filedocumented in this encounter Care Teams Envelope Sealer Operator Relationship Specialty Start Date End Date Chris Abreu MD PCP - General Family Practice 04/27/17 documented as of this encounter
--- OUTSIDE RECORDS SUMMARY | 2023-10-27 01:51 | XMS_ITS | Encounter Summary ---
Author Organization [facility] Address [address] [place] [address] Care Team Providers Care Travel Counselor Name Role Phone Chris Abreu MD Primary Care Provider Unava ilable Encounter Details Date Type Department Care Team (Latest Contact Info) Description 02/07/1998 Orders Only Patrick Wiggins MD [address] [place] [address] Social History Tobacco Use [...] on filedocumented in this encounter Care Teams Travel Counselor Relationship Specialty Start Date End Date Chris Abreu MD PCP - General Family Practice 04/27/17 documented as of this encounter
--- OUTSIDE RECORDS SUMMARY | 2023-10-27 01:51 | XMS_ITS | Encounter Summary ---
Author Organization [facility] Address [address], [place] [address] Care Team Providers Care Medical Nurse Name Role Phone Chris Abreu MD Primary Care Provider David ilvira Encounter Details Date Type Department Care Team (Latest Contact Info) Description 02/21/1997 Orders Only Amada Stubbs MD [address] [place] [address] Social History Tobacco Use [...] on filedocumented in this encounter Care Teams Medical Nurse Relationship Specialty Start Date End Date Chris Abreu MD PCP - General Family Practice 04/27/17 documented as of this encounter
--- OUTSIDE RECORDS SUMMARY | 2023-10-27 01:51 | XMS_ITS | Encounter Summary ---
Author Organization [facility] Address [address] [place] [address] Care Team Providers Care E Tailer Name Role Phone Chris Abreu MD Primary Care Provider Unava ilable Encounter Details Date Type Department Care Team (Latest Contact Info) Description 06/19/1997 Orders Only Dino Pierce MD [address] [facility] [place], [place] [address] Social History Tobacco Use Types Packs/Day Years Used Date Smoking Tobacco: Never Assessed Sex and Gender Information Value Date Recorded Sex Assigned at Not on file Gender Identity Not on file Sexual Orientation Not on file documented as of this encounter Plan of Treatment Not on file documented as of this encounter Visit Diagnoses Not on filedocumented in this encounter Care Teams E Tailer Relationship Specialty Start Date End Date Chris Abreu MD PCP - General Family Practice 04/27/17 documented as of this encounter
--- OUTSIDE RECORDS SUMMARY | 2023-10-27 01:51 | XMS_ITS | Encounter Summary ---
Author Organization [facility] Address [address], [place] [address] Care Team Providers Care Manager Internet Name Role Phone Chris Abreu MD Primary Care Provider David ilvira Encounter Details Date Type Department Care Team (Latest Contact Info) Description 07/22/1997 Orders Only Amada Stubbs MD [address] [place] [address] Social History Tobacco Use Types [...] filedocumented in this encounter Care Teams Manager Internet Relationship Specialty Start Date End Date Chris Abreu MD PCP - General Family Practice 04/27/17 documented as of this encounter
--- OUTSIDE RECORDS SUMMARY | 2023-10-27 01:51 | XMS_ITS | Encounter Summary ---
Author Organization [facility] Address [address] [place] [address] Care Team Providers Care Managed Care Provider Name Role Phone Chris Abreu MD Primary Care Provider Unava ilable Encounter Details Date Type Department Care Team (Latest Contact Info) Description 02/16/1998 Orders Only Patrick Wiggins MD [address] [place] [address] Social History Tobacco Use Types [...] on filedocumented in this encounter Care Teams Managed Care Provider Relationship Specialty Start Date End Date Chris Abreu MD PCP - General Family Practice 04/27/17 documented as of this encounter
--- OUTSIDE RECORDS SUMMARY | 2023-10-27 01:51 | XMS_ITS | Encounter Summary ---
Author Organization [facility] Address [address] [place] [address] Care Team Providers Care Machine Clothing Worker Name Role Phone Chris Abreu MD Primary Care Provider Unava ilable Encounter Details Date Type Department Care Team (Latest Contact Info) Description 12/11/1997 Orders Only Patrick Wiggins MD [address] [place] [address] Social History Tobacco Use Types [...] on filedocumented in this encounter Care Teams Machine Clothing Worker Relationship Specialty Start Date End Date Chris Abreu MD PCP - General Family Practice 04/27/17 documented as of this encounter
--- OUTSIDE RECORDS SUMMARY | 2023-10-27 01:51 | XMS_ITS | Encounter Summary ---
Author Organization [facility] Address [address] [place] [address] Care Team Providers Care Cray Fishing Hand Name Role Phone Chris Abreu MD Primary [...] on filedocumented in this encounter Care Teams Cray Fishing Hand Relationship Specialty Start Date End Date Chris Abreu MD PCP - General Family Practice 04/27/17 documented as of this encounter
--- OUTSIDE RECORDS SUMMARY | 2023-10-27 01:51 | XMS_ITS | Encounter Summary ---
Author [facility] Address [address] [place] [address] Care Team Providers Care Advisor Advocate Angel Co Founder Name Role Phone Chris Abreu MD Primary Care Provider Unava ilable Encounter Details Date Type Department Care Team (Latest Contact Info) Description 01/14/1998 Orders Only Patrick Wiggins MD [address] [place] [address] Social History Tobacco Use Types [...] on filedocumented in this encounter Care Teams Advisor Advocate Angel Co Founder Relationship Specialty Start Date End Date Chris Abreu MD PCP - General Family Practice 04/27/17 documented as of this encounter
--- OUTSIDE RECORDS SUMMARY | 2023-10-27 01:51 | XMS_ITS | Encounter Summary ---
Author Organization [facility] Address [address] [place] [address] Care Team Providers Care Accounts Payable Administrator Name Role Phone Chris Abreu MD Primary Care Provider Unava ilable Encounter Details Date Type Department Care Team (Latest Contact Info) Description 03/10/1997 Orders Only Dino Pierce MD [address] [facility] [place], [place] [address] Social History Tobacco Use Types Packs/Day Years Used Date Smoking Tobacco: Never Assessed Sex and Gender Information Value Date Recorded Sex Assigned at Not on file Gender Identity Not on file Sexual Orientation Not on file documented as of this encounter Plan of Treatment Not on file documented as of this encounter Visit Diagnoses Not on filedocumented in this encounter Care Teams Accounts Payable Administrator Relationship Specialty Start Date End Date Chris Abreu MD PCP - General Family Practice 04/27/17 documented as of this encounter
--- OUTSIDE RECORDS SUMMARY | 2023-10-27 01:51 | XMS_ITS | Encounter Summary ---
Author Organization [facility] Address [address] [address] Care Team Providers Care Burial Vault Maker Name Role Phone Chris Abreu MD Primary Care Provider David ilvira Encounter Details Date Type Department Care Team (Latest Contact Info) Description 05/14/1997 Orders Only Amada Stubbs MD [address] [place] [address] Social History Tobacco Use Types [...] on filedocumented in this encounter Care Teams Burial Vault Maker Relationship Specialty Start Date End Date Chris Abreu MD PCP - General Family Practice 04/27/17 documented as of this encounter
--- OUTSIDE RECORDS SUMMARY | 2023-10-27 01:51 | XMS_ITS | Encounter Summary ---
Author Organization [facility] Address [address], [place] [address] Care Team Providers Care Institute Director Name Role Phone Chris Abreu MD Primary Care Provider David ilvira Encounter Details Date Type Department Care Team (Latest Contact Info) Description 11/08/1997 Orders Only Jimi Sharp MD [address] [place], [place] [address] Social History Tobacco Use Types Packs/Day Years [...] on filedocumented in this encounter Care Teams Institute Director Relationship Specialty Start Date End Date Chris Abreu MD PCP - General Family Practice 04/27/17 documented as of this encounter
--- OUTSIDE RECORDS SUMMARY | 2023-10-27 01:51 | XMS_ITS | Encounter Summary ---
Author Organization [facility] Address [address] [place] [address] Care Team Providers Care Indexer Name Role Phone Chris Abreu MD Primary Care Provider Unava ilable Encounter Details Date Type Department Care Team (Latest Contact Info) Description 03/18/1997 Orders Only Ankit Winkler MD [address] [place] [address] [id number] Social History Tobacco Use Types Packs/Day Years Used Date Smoking Tobacco: Never Assessed Sex and Gender Information Value Date Recorded Sex Assigned at Not on file Gender Identity Not on file Sexual Orientation Not on file documented as of this encounter Plan of Treatment Not on file documented as of this encounter Visit Diagnoses Not on filedocumented in this encounter Care Teams Indexer Relationship Specialty Start Date End Date Chris Abreu MD PCP - General Family Practice 04/27/17 documented as of this encounter
--- OUTSIDE RECORDS SUMMARY | 2023-10-27 01:51 | XMS_ITS | Encounter Summary ---
Author Organization [facility] Address [address] [place] [address] Care Team Providers Care Case Briefer Name Role Phone Chris Abreu MD Primary Care Provider Unava ilable Encounter Details Date Type Department Care Team (Latest Contact Info) Description 07/03/1997 Orders Only Ankit Winkler MD [address] [place] [address] [id number] Social History Tobacco Use Types Packs/Day Years Used Date Smoking Tobacco: Never Assessed Sex and Gender Information Value Date Recorded Sex Assigned at Not on file Gender Identity Not on file Sexual Orientation Not on file documented as of this encounter Plan of Treatment Not on file documented as of this encounter Visit Diagnoses Not on filedocumented in this encounter Care Teams Case Briefer Relationship Specialty Start Date End Date Chris Abreu MD PCP - General Family Practice 04/27/17 documented as of this encounter
--- OUTSIDE RECORDS SUMMARY | 2023-10-27 01:51 | XMS_ITS | Encounter Summary ---
Author Organization [facility] Address [address], [place] [address] Care Team Providers Care Head Trimmer Name Role Phone Chris Abreu MD Primary Care Provider Unava ilable Encounter Details Date Type Department Care Team (Latest Contact Info) Description 09/01/1997 Orders Only Oumou Oliver MD [address] [place] [address] Social History Tobacco Use Types Packs/Day Years Used Date Smoking Tobacco: Never Assessed Sex and Gender Information Value Date Recorded Sex Assigned at Not on file Gender Identity Not on file Sexual Orientation Not on file documented as of this encounter Plan of Treatment Not on file documented as of this encounter Visit Diagnoses Not on filedocumented in this encounter Care Teams Head Trimmer Relationship Specialty Start Date End Date Crhis Abreu MD PCP - General Family Practice 04/27/17 documented as of this encounter
--- OUTSIDE RECORDS SUMMARY | 2023-10-27 01:51 | XMS_ITS | Encounter Summary ---
Author Organization [facility] Address [address] [place] [address] Care Team Providers Care Staff Readiness Officer Name Role Phone Chris Abreu MD Primary Care Provider Unava ilable Encounter Details Date Type Department Care Team (Latest Contact Info) Description 12/19/1997 Orders Only Patrick Wiggins MD [address] [place] [address] Social History Tobacco Use Types [...] on filedocumented in this encounter Care Teams Staff Readiness Officer Relationship Specialty Start Date End Date Chris Abreu MD PCP - General Family Practice 04/27/17 documented as of this encounter
--- OUTSIDE RECORDS SUMMARY | 2023-10-27 01:51 | XMS_ITS | Encounter Summary ---
Author Organization [facility] Address [address] [place] [address] Care Team Providers Care Ms Sql Dba Name Role Phone Chris Abreu MD Primary Care Provider Unava ilable Encounter Details Date Type Department Care Team (Latest Contact Info) Description 08/16/1997 Orders Only David Whitfield [facility] [address] [place], [place] 525[address] Social History Tobacco Use Types Packs/Day Years Used Date Smoking Tobacco: Never Assessed Sex and Gender Information Value Date Recorded Sex Assigned at Not on file Gender Identity Not on file Sexual Orientation Not on file documented as of this encounter Plan of Treatment Not on file documented as of this encounter Visit Diagnoses Not on filedocumented in this encounter Care Teams Ms Sql Dba Relationship Specialty Start Date End Date Chris Abreu MD PCP - General Family Practice 04/27/17 documented as of this encounter
--- OUTSIDE RECORDS SUMMARY | 2023-10-27 01:51 | XMS_ITS | Encounter Summary ---
Author Organization [facility] [address] [place] [address] Care Team Providers Care Dimension Stone Quarry Supervisor Name Role Phone Chris Abreu MD Primary Care Provider David ramires Encounter Details Date Type Department Care Team (Late st Contact Info) Description 08/22/1998 Orders Only [facility] Radiology [address] [place], [place] [address] Patrick Wiggins MD [address] [place], [place] [id number] PAIN IN LIMB Social History Tobacco Use [...] limb documented in this encounter Care Teams Dimension Stone Quarry Supervisor Relationship Specialty Start Date End Date Chris Abreu MD PCP - General Family Practice 04/27/17 documented as of this encounter
--- OUTSIDE RECORDS SUMMARY | 2023-10-27 01:51 | XMS_ITS | Encounter Summary ---
Author Organization [facility] Address [address] [place] [address] Care Team Providers Care Ibm Bpm Developer Name Role Phone Chris Abreu MD Primary Care Provider Unava ilable Encounter Details Date Type Department Care Team (Latest Contact Info) Description 02/14/1998 Orders Only Patrick Wiggins MD [address] [place] [address] Social History Tobacco Use Types [...] on filedocumented in this encounter Care Teams Ibm Bpm Developer Relationship Specialty Start Date End Date Chris Abreu MD PCP - General Family Practice 04/27/17 documented as of this encounter
--- OUTSIDE RECORDS SUMMARY | 2023-10-27 01:51 | XMS_ITS | Encounter Summary ---
Author Organization [facility] Address [address], [place] [address] Care Team Providers Care Shelf Filler Name Role Phone Chris Abreu MD Primary [...] on filedocumented in this encounter Care Teams Shelf Filler Relationship Specialty Start Date End Date Chris Abreu MD PCP - General Family Practice 04/27/17 documented as of this encounter
--- OUTSIDE RECORDS SUMMARY | 2023-10-27 01:51 | XMS_ITS | Encounter Summary ---
Author Organization [facility] Address [address] [address] Care Team Providers Care Marketing Support Coordinator Name Role Phone Chris Abreu MD Primary Care Provider David ilvira Encounter Details Date Type Department Care Team (Latest Contact Info) Description 10/18/1997 Orders Only Jimi Sharp MD [address] [place], [place] [phone] Social History Tobacco Use Types Packs/Day Years [...] on filedocumented in this encounter Care Teams Marketing Support Coordinator Relationship Specialty Start Date End Date Chris Abreu MD PCP - General Family Practice 04/27/17 documented as of this encounter
--- OUTSIDE RECORDS SUMMARY | 2023-10-27 01:52 | XMS_ITS | Encounter Summary ---
Author Organization [facility] Address [address], [place] [address] Care Team Providers Care Deburr Technician Name Role Phone Chris Abreu MD Primary Care Provider David ilvira Encounter Details Date Type Department Care Team (Latest Contact Info) Description 01/19/1997 Orders Only Amada Stubbs MD [address] [place] [address] Social History Tobacco Use Types [...] on filedocumented in this encounter Care Teams Deburr Technician Relationship Specialty Start Date End Date Chris Abreu MD PCP - General Family Practice 04/27/17 documented as of this encounter
--- OUTSIDE RECORDS SUMMARY | 2023-10-27 01:52 | XMS_ITS | Encounter Summary ---
Author Organization [facility] Address [address], [place] [address] Care Team Providers Care Retail Customer Service Specialist Name Role Phone Chris Abreu MD Primary Care Provider David ilvira Encounter Details Date Type Department Care Team (Latest Contact Info) Description 01/09/1997 Orders Only Amada Stubbs MD [address] [place] [address] Social History Tobacco Use Types [...] on filedocumented in this encounter Care Teams Retail Customer Service Specialist Relationship Specialty Start Date End Date Chris Abreu MD PCP - General Family Practice 04/27/17 documented as of this encounter
--- OUTSIDE RECORDS SUMMARY | 2023-10-27 01:52 | XMS_ITS | Encounter Summary ---
Author Organization [facility] Address [address] [address] Care Team Providers Care Case Planner Name Role Phone Chris Abreu MD Primary Care Provider David ilvira Encounter Details Date Type Department Care Team (Latest Contact Info) Description 08/24/1996 Orders Only Amada Stubbs MD [address] [address] Social History Tobacco Use Types [...] filedocumented in this encounter Care Teams Case Planner Relationship Specialty Start Date End Date Chris Abreu MD PCP - General Family Practice 04/27/17 documented as of this encounter
--- OUTSIDE RECORDS SUMMARY | 2023-10-27 01:52 | XMS_ITS | Encounter Summary ---
Author Organization [facility] Address [address], [place] [address] Care Team Providers Care Trailer Technician Name Role Phone Chris Abreu MD [...] on filedocumented in this encounter Care Teams Trailer Technician Relationship Specialty Start Date End Date Chris Abreu MD PCP - General Family Practice 04/27/17 documented as of this encounter
--- OUTSIDE RECORDS SUMMARY | 2023-10-27 01:52 | XMS_ITS | Encounter Summary ---
Author Organization [facility] Address [address] [address] Care Team Providers Care Graphic Production Artist Name Role Phone Chris Abreu MD Primary Care Provider David ilvira Encounter Details Date Type Department Care Team (Latest Contact Info) Description 10/31/1996 Orders Only Galina Frank, SCREEN OPERATOR, DRYLAND FARMER [address] [place] [address] Social History Tobacco Use Types Packs/Day Years Used Date Smoking Tobacco: Never Assessed Sex and Gender Information Value Date Recorded Sex Assigned at Not on file Gender Identity Not on file Sexual Orientation Not on file documented as of this encounter Plan of Treatment Not on file documented as of this encounter Visit Diagnoses Not on filedocumented in this encounter Care Teams Graphic Production Artist Relationship Specialty Start Date End Date Chris Abreu MD PCP - General Family Practice 04/27/17 documented as of this encounter
--- OUTSIDE RECORDS SUMMARY | 2023-10-27 01:52 | XMS_ITS | Encounter Summary ---
Author Organization [facility] Address [address], [place] [address] Care Team Providers Care Cabbage Salter Name Role Phone Chris Abreu MD Primary Care Provider Unava ilable Encounter Details Date Type Department Care Team (Latest Contact Info) Description 01/26/1997 Orders Only [employer], [place] [address] Social History Tobacco Use Types Packs/Day Years Used Date Smoking Tobacco: Never Assessed Sex and Gender Information Value Date Recorded Sex Assigned at Not on file Gender Identity Not on file Sexual Orientation Not on file documented as of this encounter Plan of Treatment Not on file documented as of this encounter Visit Diagnoses Not on filedocumented in this encounter Care Teams Cabbage Salter Relationship Specialty Start Date End Date Chris Abreu MD PCP - General Family Practice 04/27/17 documented as of this encounter
--- OUTSIDE RECORDS SUMMARY | 2023-10-27 01:52 | XMS_ITS | Encounter Summary ---
Author Organization [facility] Address [address] [place] [address] Care Team Providers Care Registered Respiratory Therapist Name Role Phone Chris Abreu MD Primary [...] on filedocumented in this encounter Care Teams Registered Respiratory Therapist Relationship Specialty Start Date End Date Chris Abreu MD PCP - General Family Practice 04/27/17 documented as of this encounter
--- OUTSIDE RECORDS SUMMARY | 2023-10-27 01:52 | XMS_ITS | Encounter Summary ---
Author Organization [facility] Address [address] [place] [address] Care Team Providers Care Bookkeeper Assistant Name Role Phone Chris Abreu MD Primary Care Provider Unava ilable Encounter Details Date Type Department Care Team (Latest Contact Info) Description 09/02/1996 Orders Only Dino Pierce MD [address] [facility] [place], [place] [address] Social History Tobacco Use Types Packs/Day Years Used Date Smoking Tobacco: Never Assessed Sex and Gender Information Value Date Recorded Sex Assigned at Not on file Gender Identity Not on file Sexual Orientation Not on file documented as of this encounter Plan of Treatment Not on file documented as of this encounter Visit Diagnoses Not on filedocumented in this encounter Care Teams Bookkeeper Assistant Relationship Specialty Start Date End Date Chris Abreu MD PCP - General Family Practice 04/27/17 documented as of this encounter
--- OUTSIDE RECORDS SUMMARY | 2023-10-27 01:52 | XMS_ITS | Encounter Summary ---
Author Organization [facility] Address [address] [place] [address] Care Team Providers Care Classics Professor Name Role Phone Chris Abreu MD Primary Care Provider Unava ilable Encounter Details Date Type Department Care Team (Latest Contact Info) Description 02/11/1997 Orders Only Ankit Winkler MD [address] [place] [address] [phone] Social History Tobacco Use Types Packs/Day Years Used Date Smoking Tobacco: Never Assessed Sex and Gender Information Value Date Recorded Sex Assigned at Not on file Gender Identity Not on file Sexual Orientation Not on file documented as of this encounter Plan of Treatment Not on file documented as of this encounter Visit Diagnoses Not on filedocumented in this encounter Care Teams Classics Professor Relationship Specialty Start Date End Date Chris Abreu MD PCP - General Family Practice 04/27/17 documented as of this encounter
--- OUTSIDE RECORDS SUMMARY | 2023-10-27 01:52 | XMS_ITS | Encounter Summary ---
Author Organization [facility] Address [address] [address] Care Team Providers Care Felt Coverer Name Role Phone Chris Abreu MD Primary Care Provider David ilvira Encounter Details Date Type Department Care Team (Latest Contact Info) Description 12/16/1996 Orders Only Amada Stubbs MD [address] [place] [address] Social History Tobacco Use Types [...] on filedocumented in this encounter Care Teams Felt Coverer Relationship Specialty Start Date End Date Chris Abreu MD PCP - General Family Practice 04/27/17 documented as of this encounter
--- OUTSIDE RECORDS SUMMARY | 2023-10-27 01:52 | XMS_ITS | Encounter Summary ---
Author Organization [facility] Address [address], [place] [address] Care Team Providers Care Tension Machine Operator Name Role Phone Chris Abreu [...] on filedocumented in this encounter Care Teams Tension Machine Operator Relationship Specialty Start Date End Date Chris Abreu MD PCP - General Family Practice 04/27/17 documented as of this encounter
--- OUTSIDE RECORDS SUMMARY | 2023-10-27 01:52 | XMS_ITS | Encounter Summary ---
Author Organization [facility] Address [address] [place] [address] Care Team Providers Care Machine Wedger Name Role Phone Chris Abreu MD Primary [...] filedocumented in this encounter Care Teams Machine Wedger Relationship Specialty Start Date End Date Chris Abreu MD PCP - General Family Practice 04/27/17 documented as of this encounter
--- OUTSIDE RECORDS SUMMARY | 2023-10-27 01:52 | XMS_ITS | Encounter Summary ---
Author Organization [facility] Address [address] [place] [address] Care Team Providers Care Numerical Control Router Operator Name Role Phone Chris Abreu MD Primary Care Provider Unava ilable Encounter Details Date Type Department Care Team (Latest Contact Info) Description 10/27/1996 Orders Only Ankit Winkler MD [address] [place] [address] [phone] Social History Tobacco Use Types Packs/Day Years Used Date Smoking Tobacco: Never Assessed Sex and Gender Information Value Date Recorded Sex Assigned at Not on file Gender Identity Not on file Sexual Orientation Not on file documented as of this encounter Plan of Treatment Not on file documented as of this encounter Visit Diagnoses Not on filedocumented in this encounter Care Teams Numerical Control Router Operator Relationship Specialty Start Date End Date Chris Arbeu MD PCP - General Family Practice 04/27/17 documented as of this encounter
--- OUTSIDE RECORDS SUMMARY | 2023-10-27 01:52 | XMS_ITS | Encounter Summary ---
Author Organization [facility] Address [address] [address] Care Team Providers Care Electronics Supervisor Name Role Phone Chris Abreu MD Primary Care Provider David ilvira Encounter Details Date Type Department Care Team (Latest Contact Info) Description 07/29/1996 Orders Only Amada Stubbs MD [address] [place] [address] Social History Tobacco Use Types [...] on filedocumented in this encounter Care Teams Electronics Supervisor Relationship Specialty Start Date End Date Chris Abreu MD PCP - General Family Practice 04/27/17 documented as of this encounter
--- OUTSIDE RECORDS SUMMARY | 2023-10-27 01:52 | XMS_ITS | Encounter Summary ---
Author Organization [facility] Address [address] [place] [address] Care Team Providers Care Spout Worker Name Role Phone Chris Abreu MD [...] on filedocumented in this encounter Care Teams Spout Worker Relationship Specialty Start Date End Date Chris Abreu MD PCP - General Family Practice 04/27/17 documented as of this encounter
--- OUTSIDE RECORDS SUMMARY | 2023-10-27 01:52 | XMS_ITS | Encounter Summary ---
Author Organization [facility] Address [address] [address] Care Team Providers Care High Speed Operator Name Role Phone Chris Abreu MD Primary Care Provider David ilvira Encounter Details Date Type Department Care Team (Latest Contact Info) Description 01/27/1997 Orders Only Amada Stubbs MD [address] [place] [address] Social History Tobacco Use Types [...] on filedocumented in this encounter Care Teams High Speed Operator Relationship Specialty Start Date End Date Chris Abreu MD PCP - General Family Practice 04/27/17 documented as of this encounter
--- OUTSIDE RECORDS SUMMARY | 2023-10-27 01:52 | XMS_ITS | Encounter Summary ---
Author Organization [facility] Address [address] [place] [address] Care Team Providers Care Bpm Solution Architect Name Role Phone Chris Abreu MD Primary Care Provider Unava ilable Encounter Details Date Type Department Care Team (Latest Contact Info) Description 12/07/1996 Orders Only Ankit Winkler MD [address] [place] [address] [phone] Social History Tobacco Use Types Packs/Day Years Used Date Smoking Tobacco: Never Assessed Sex and Gender Information Value Date Recorded Sex Assigned at Not on file Gender Identity Not on file Sexual Orientation Not on file documented as of this encounter Plan of Treatment Not on file documented as of this encounter Visit Diagnoses Not on filedocumented in this encounter Care Teams Bpm Solution Architect Relationship Specialty Start Date End Date Chris Abreu MD PCP - General Family Practice 04/27/17 documented as of this encounter
--- OUTSIDE RECORDS SUMMARY | 2023-10-27 01:52 | XMS_ITS | Encounter Summary ---
Author Organization [facility] Address [address] [place] [address] Care Team Providers Care Consumer Sales Representative Name Role Phone Chris Abreu MD Primary Care Provider Unava ilable Encounter Details Date Type Department Care Team (Latest Contact Info) Description 09/20/1996 Orders Only Ankit Winkler MD [address] [place] [phone] Social History Tobacco Use Types Packs/Day Years Used Date Smoking Tobacco: Never Assessed Sex and Gender Information Value Date Recorded Sex Assigned at Not on file Gender Identity Not on file Sexual Orientation Not on file documented as of this encounter Plan of Treatment Not on file documented as of this encounter Visit Diagnoses Not on filedocumented in this encounter Care Teams Consumer Sales Representative Relationship Specialty Start Date End Date Chris Abreu MD PCP - General Family Practice 04/27/17 documented as of this encounter
--- OUTSIDE RECORDS SUMMARY | 2023-10-27 01:52 | XMS_ITS | Encounter Summary ---
Author Organization [facility] Address [address], [place] [address] Care Team Providers Care Cream Dipper Name Role Phone Chris Abreu MD Primary Care Provider David ilvira Encounter Details Date Type Department Care Team (Latest Contact Info) Description 02/10/1997 Orders Only Amada Stubbs MD [address] [place] [address] Social History Tobacco Use Types [...] on filedocumented in this encounter Care Teams Cream Dipper Relationship Specialty Start Date End Date Chris Abreu MD PCP - General Family Practice 04/27/17 documented as of this encounter
--- OUTSIDE RECORDS SUMMARY | 2023-10-27 01:52 | XMS_ITS | Encounter Summary ---
Author Organization [facility] Address [address] [address] Care Team Providers Care Resident Athletic Trainer Name Role Phone Chris Abreu MD Primary [...] on filedocumented in this encounter Care Teams Resident Athletic Trainer Relationship Specialty Start Date End Date Chris Abreu MD PCP - General Family Practice 04/27/17 documented as of this encounter
--- OUTSIDE RECORDS SUMMARY | 2023-10-27 01:52 | XMS_ITS | Encounter Summary ---
Author Organization [facility] Address [address] [place] [address] Care Team Providers Care Multi Needle Machine Operator Name Role Phone Chris Abreu [...] on filedocumented in this encounter Care Teams Multi Needle Machine Operator Relationship Specialty Start Date End Date Chris Abreu MD PCP - General Family Practice 04/27/17 documented as of this encounter
--- OUTSIDE RECORDS SUMMARY | 2023-10-27 01:53 | XMS_ITS | Encounter Summary ---
Author Organization [facility] Address [address] [place] [address] Care Team Providers Care Nursing Admin Name Role Phone Chris Abreu MD Primary [...] on filedocumented in this encounter Care Teams Nursing Admin Relationship Specialty Start Date End Date Chris Abreu MD PCP - General Family Practice 04/27/17 documented as of this encounter
--- OUTSIDE RECORDS SUMMARY | 2023-10-27 01:53 | XMS_ITS | Referral Summary ---
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 PT no longer part of [facility]. Do not call with any follow up! [...] 06/16/2012 Anxiety Coronary artery disease invo lving tanacross coronary artery of tanacross heart without angina pectoris Overview: cardiac cath [...] CS T Respiratory Rate 05/19/2017 4:14 PM RECORD CHANGER Oxygen Saturation 95% 12/24/2020 12:57 PM CDT Inhaled Oxygen Concentration - - Weight 95.3 kg (210 lb) 12/24/2020 12:57 PM CDT Height 157.5 cm (5' 2) 12/24/2020 12:57 PM CDT Body Mass Index 38.41 12/24/2020 12:57 PM CDT Plan of Treatment Not on file Medical Devices Implanted Type Area Clinical Lab Assistant Device Identifier Shelf Expiration Date Model / Serial / Lot Right Atrial Lead-07/25/2016 Implanted:07/25 by Francisco J King MD (Quantity not on file) [employer] 7740-45 / [id number] / Right Ventricular Lead-07/25/2016 Implanted:07/25 by Francisco J King MD (Quantity not on file) [employer] 7741-42 / [id number] / Left Ventricular Lead-07/25/2016 Implanted:07/25 by Francisco J King MD (Quantity not on file) [employer] 4674-86 / [id number] / Pacemaker-Eze Sci Implanted:07/25 by Francisco J King MD (Quantity not on file) Pacemaker [employer] VALITUDE X4 SECOND COOK AND BAKER-P U128 / [id number] / Bone Cement Palacos [id number] Implanted:Qty: 2 on 05/24/2014 by Chris Wang MD at [facility] Right: Knee [employer] 10/27/2018-1112-140 -01 / / [id number] Imp Plate Tibial Zim Nexgen Size 4 Implanted:Qty: 1 on 05/24/2014 by Chris Wang MD at [facility] Right: Knee [employer] 03/29/2024-5980-037 -02 / / [id number] Imp Comp Femoral Zim Size D Rt [id number] Implanted:Qty: 1 on 05/24/2014 by Chris Wang MD at [facility] Right: Knee [employer] 12/28/2023-5964-014 -52 / / [id number] Imp Comp Patella Zim Nexgen 8.5x32mm Implanted:Qty: 1 on 05/24/2014 by Chris Wang MD at [facility] Right: Knee [employer] 01/27/2022-5972-065 -32 / / [id number] Imp Art Surface Zim Lps Flex Cd 3-4 12mm [id number] Implanted:Qty: 1 on 05/24/2014 by Chris Wang MD at [facility] Right: Knee 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 BASIC METABOLIC PANEL Routine 08/20/2020 1:39 PM CDT Acute on chronic heart failure with preserved ejection fraction (HFpEF) (H) HEMOGLOBIN A1C Routine 05/07/2017 8:25 AM RECORD CHANGER from Last 3 Months or Most Recently Relevant to Health Maintenance Results * (ABNORMAL) Lipid Profile (12/24/2020 11:07 AM CDT) [facility] Cholesterol 121 <200 mg/dL 12/24/2020 11:44 AM [...] PA-C LAB - BLOOD ORD ERABLES LABORATORY [facility] Acute Care Lab [address], [address] [place] [address], [place] [phone] * (ABNORMAL) Basic metabolic panel (08/20/2020 1:39 PM CDT) [facility] Sodium 136 133 - 144 mmol/L 08/20/2020 2:33 PM CDT [facility] Potassium 4.2 3.4 - 5.3 mmol/L 08/20/2020 2:33 PM CDT [facility] Chloride 101 94 - 109 mmol/L 08/20/2020 2:33 PM T [facility] Carbon Dioxide 29 20 - 32 mmol/L 08/20/2020 2:41 PM T [facility] Anion Gap 6 3 - 14 mmol/L 08/20/2020 2:41 PM T [facility] Glucose 183(H) 70 - 99 mg/dL 08/20/2020 2:41 PM T [facility] Urea Nitrogen 22 7 - 30 mg/dL 08/20/2020 2:41 PM [facility] Creatinine 0.88 0.52 - 1.04 mg/dL 08/20/2020 2:41 PM [facility] GFR Estimate 63 >60 mL/min/{1. 73_m2} 08/20/2020 2:41 PM [facility] Comment: Non GFR Calc Starting 03/16/2018, serum creatinine based estimated GFR (eGFR) will be calculated using the Chronic Kidney Disease Epidemiology Collaboration (CKD-EPI) equation. GFR Estimate If Black 73 >60 mL/min/{1. 73_m2} 08/20/2020 2:41 PM [facility] Comment: GFR Calc Starting 03/16/2018, serum creatinine based estimated GFR (eGFR) will be calculated using the Chronic Kidney Disease Epidemiology Collaboration (CKD-EPI) equation. Calcium 9.6 8.5 - 10.1 mg/dL 08/20/2020 2:41 PM CDT [facility] Blood 08/20/2020 1:39 PM CDT 08/20/2020 1:40 PM CDT Crystal Abraham PA-C LAB - BLOOD ORD ERABLES Performing Organization Address City/[facility]/ZIP Co de Phone Number [facility] [address] [place] [address], [facility] [phone] * (ABNORMAL) Hemoglobin A1c (05/07/2017 8:25 AM RECORD CHANGER) Hemoglobin A1C 7.6(H) 4.2 - 6.1 % 05/07/2017 2:[address] [facility] Blood specimen (specimen) STRUCTURE OF LEFT UPPER LIMB / Unknown Venipuncture / Unknown 05/07/2017 8:25 AM RECORD CHANGER 05/07/2017 12:06 PM RECORD CHANGER Rosanne Turner [facility] LAB - BLOOD OR DERABLES Performing Organization Address City/[facility]/ZIP Co de Phone Number [facility] [address] [place] [address], [facility] [address] [place] [address] from Last 3 Months or Most Recently Relevant to Health Maintenance Advance Directives For more information, please contact: [phone] Documents on File Type Date Recorded Patient [employer] Dean Expl anation Advance Directives and Living Will [...] 4:01 PM 02/19/2016 8:27 AM Care Teams Surveillance Observer Relationship Specialty Start Date End Date Jesus Mistry PCP - General Family Practice 04/14/19
--- OUTSIDE RECORDS SUMMARY | 2023-10-27 01:53 | XMS_ITS | Encounter Summary ---
Author Organization [facility] Address [address], [place] [address] Care Team Providers Care Senior Embedded Software Engineer Name Role Phone Chris Abreu MD Primary Care Provider Unava ilable Encounter Details Date Type Department Care Team (Latest Contact Info) Description 05/22/1995 Orders Only Chris Ragsdale MD [address] [place] [address] Social History Tobacco Use Types [...] filedocumented in this encounter Care Teams Senior Embedded Software Engineer Relationship Specialty Start Date End Date Chris Abreu MD PCP - General Family Practice 04/27/17 documented as of this encounter
--- OUTSIDE RECORDS SUMMARY | 2023-10-27 01:53 | XMS_ITS | Encounter Summary ---
Author Organization [facility] Address [address], [place] [address] Care Team Providers Care Voicer Name Role Phone Chris Abreu MD Primary Care Provider David ilvira Encounter Details Date Type Department Care Team (Latest Contact Info) Description 04/11/1995 Orders Only Amada Stubbs MD [address] [place] [address] Social History Tobacco Use Types [...] on filedocumented in this encounter Care Teams Voicer Relationship Specialty Start Date End Date Chris Abreu MD PCP - General Family Practice 04/27/17 documented as of this encounter
--- OUTSIDE RECORDS SUMMARY | 2023-10-27 01:53 | XMS_ITS | Encounter Summary ---
Author Organization [facility] Address [address], [place] [address] Care Team Providers Care Customer Service Administrator Name Role Phone Chris Abreu MD Primary Care Provider Unava ilable Encounter Details Date Type Department Care Team (Latest Contact Info) Description 06/22/1995 Orders Only Chris Ragsdale MD [address] [place], [place] [address] Social History Tobacco Use Types Packs/Day Years Used Date Smoking Tobacco: Never Assessed Sex and Gender Information Value Date Recorded Sex Assigned at Not on file Gender Identity Not on file Sexual Orientation Not on file documented as of this encounter Plan of Treatment Not on file documented as of this encounter Visit Diagnoses Not on filedocumented in this encounter Care Teams Customer Service Administrator Relationship Specialty Start Date End Date Chris Abreu MD PCP - General Family Practice 04/27/17 documented as of this encounter
--- OUTSIDE RECORDS SUMMARY | 2023-10-27 01:53 | XMS_ITS | Encounter Summary ---
Author Organization [facility] Address [address], [place] [address] Care Team Providers Care Dental Surgeon Name Role Phone Chris Abreu MD Primary Care Provider David ilvira Encounter Details Date Type Department Care Team (Latest Contact Info) Description 08/02/1995 Orders Only Amada Stubbs MD [address] [address] Social History Tobacco Use [...] on filedocumented in this encounter Care Teams Dental Surgeon Relationship Specialty Start Date End Date Chris Abreu MD PCP - General Family Practice 04/27/17 documented as of this encounter
--- OUTSIDE RECORDS SUMMARY | 2023-10-27 01:53 | XMS_ITS | Encounter Summary ---
Author Organization [facility] Address [address], [place] [address] Care Team Providers Care Social Science Research Assistant Name Role Phone Chris Abreu MD [...] filedocumented in this encounter Care Teams Social Science Research Assistant Relationship Specialty Start Date End Date Chris Abreu MD PCP - General Family Practice 04/27/17 documented as of this encounter
--- OUTSIDE RECORDS SUMMARY | 2023-10-27 01:53 | XMS_ITS | Encounter Summary ---
Author Organization [facility] Address [address] [address] Care Team Providers Care Log Washer Name Role Phone Chris Abreu MD Primary [...] on filedocumented in this encounter Care Teams Log Washer Relationship Specialty Start Date End Date Chris Abreu MD PCP - General Family Practice 04/27/17 documented as of this encounter
--- OUTSIDE RECORDS SUMMARY | 2023-10-27 01:53 | XMS_ITS | Encounter Summary ---
Author Organization [facility] Address [address], [place] [address] Care Team Providers Care Gutter Mouth Cutter Name Role Phone Chris Abreu MD Primary Care Provider Unajack ilable Encounter Details Date Type Department Care Team (Latest Contact Info) Description 06/14/1995 Orders Only Galina Frank, GIFTED PROGRAM TEACHER, DRIER BELT CONVEYOR [address] [place] [address] Social History Tobacco Use Types Packs/Day Years Used Date Smoking Tobacco: Never Assessed Sex and Gender Information Value Date Recorded Sex Assigned at Not on file Gender Identity Not on file Sexual Orientation Not on file documented as of this encounter Plan of Treatment Not on file documented as of this encounter Visit Diagnoses Not on filedocumented in this encounter Care Teams Gutter Mouth Cutter Relationship Specialty Start Date End Date Chris Abreu MD PCP - General Family Practice 04/27/17 documented as of this encounter
--- OUTSIDE RECORDS SUMMARY | 2023-10-27 01:53 | XMS_ITS | Encounter Summary ---
Author Organization [facility] Address [address], [place] [address] Care Team Providers Care Quarry Plant Crusher Operator Name Role Phone Chris Abreu MD Primary Care Provider Unajack ilvira Encounter Details Date Type Department Care Team (Latest Contact Info) Description 09/27/1995 Orders Only Amada Stubbs MD [address] [place] [address] Social History Tobacco Use Types [...] on filedocumented in this encounter Care Teams Quarry Plant Crusher Operator Relationship Specialty Start Date End Date Chris Abreu MD PCP - General Family Practice 04/27/17 documented as of this encounter
--- OUTSIDE RECORDS SUMMARY | 2023-10-27 01:53 | XMS_ITS | Encounter Summary ---
Author Organization [facility] Address [address], [place] [address] Care Team Providers Care Business Process Lead Name Role Phone Chris Abreu MD Primary Care Provider Unajack ilvira Encounter Details Date Type Department Care Team (Latest Contact Info) Description 09/17/1995 Orders Only Amada Stubbs MD [address] [place] [address] Social History Tobacco Use Types [...] in this encounter Care Teams Business Process Lead Relationship Specialty Start Date End Date Chris Abreu MD PCP - General Family Practice 04/27/17 documented as of this encounter
--- OUTSIDE RECORDS SUMMARY | 2023-10-27 01:53 | XMS_ITS | Encounter Summary ---
Author Organization [facility] Address [address] [place] [address] Care Team Providers Care Director Volunteer Services Name Role Phone Chris Abreu MD Primary Care Provider Unava ilable Encounter Details Date Type Department Care Team (Latest Contact Info) Description 05/14/1996 Orders Only Ankit Winkler MD [address] [place] [phone] Social History Tobacco Use Types Packs/Day Years Used Date Smoking Tobacco: Never Assessed Sex and Gender Information Value Date Recorded Sex Assigned at Not on file Gender Identity Not on file Sexual Orientation Not on file documented as of this encounter Plan of Treatment Not on file documented as of this encounter Visit Diagnoses Not on filedocumented in this encounter Care Teams Director Volunteer Services Relationship Specialty Start Date End Date Chris Abreu MD PCP - General Family Practice 04/27/17 documented as of this encounter
--- OUTSIDE RECORDS SUMMARY | 2023-10-27 01:53 | XMS_ITS | Encounter Summary ---
Author Organization [facility] Address [address], [place] [address] Care Team Providers Care Newspaper Carrier Name Role Phone Chris Abreu MD Primary Care Provider Unava ilable Encounter Details Date Type Department Care Team (Latest Contact Info) Description 04/07/1995 Orders Only Chris Ragsdale MD [address] [place], [place] [address] Social History Tobacco Use Types Packs/Day Years Used Date Smoking Tobacco: Never Assessed Sex and Gender Information Value Date Recorded Sex Assigned at Not on file Gender Identity Not on file Sexual Orientation Not on file documented as of this encounter Plan of Treatment Not on file documented as of this encounter Visit Diagnoses Not on filedocumented in this encounter Care Teams Newspaper Carrier Relationship Specialty Start Date End Date Chris Abreu MD PCP - General Family Practice 04/27/17 documented as of this encounter
--- OUTSIDE RECORDS SUMMARY | 2023-10-27 01:53 | XMS_ITS | Encounter Summary ---
Author Organization [facility] Address [address] [place] [address] Care Team Providers Care Information Technology Intern Name Role Phone Chris Abreu MD Primary Care Provider Unava ilable Encounter Details Date Type Department Care Team (Latest Contact Info) Description 04/27/1995 Orders Only Ankit Winkler MD [address] [place] [phone] Social History Tobacco Use Types Packs/Day Years Used Date Smoking Tobacco: Never Assessed Sex and Gender Information Value Date Recorded Sex Assigned at Not on file Gender Identity Not on file Sexual Orientation Not on file documented as of this encounter Plan of Treatment Not on file documented as of this encounter Visit Diagnoses Not on filedocumented in this encounter Care Teams Information Technology Intern Relationship Specialty Start Date End Date Chris Abreu MD PCP - General Family Practice 04/27/17 documented as of this encounter
--- OUTSIDE RECORDS SUMMARY | 2023-10-27 01:53 | XMS_ITS | Encounter Summary ---
Author Organization [facility] Address [address], [place] [address] Care Team Providers Care Feature Writer Name Role Phone Chris Abreu MD Primary Care Provider David ilvira Encounter Details Date Type Department Care Team (Latest Contact Info) Description 05/03/1995 Orders Only Amada Stubbs MD [address] [place] [address] Social History Tobacco Use Types [...] on filedocumented in this encounter Care Teams Feature Writer Relationship Specialty Start Date End Date Chris Abreu MD PCP - General Family Practice 04/27/17 documented as of this encounter
--- OUTSIDE RECORDS SUMMARY | 2023-10-27 01:53 | XMS_ITS | Encounter Summary ---
Author Organization [facility] Address [address] [place] [address] Care Team Providers Care Hedge Fund Accountant Name Role Phone Chris Abreu MD Primary Care Provider Unava ilable Encounter Details Date Type Department Care Team (Latest Contact Info) Description 03/31/1995 Orders Only Dino Pierce MD [address] [facility] [place], [place] [address] Social History Tobacco Use Types Packs/Day Years Used Date Smoking Tobacco: Never Assessed Sex and Gender Information Value Date Recorded Sex Assigned at Not on file Gender Identity Not on file Sexual Orientation Not on file documented as of this encounter Plan of Treatment Not on file documented as of this encounter Visit Diagnoses Not on filedocumented in this encounter Care Teams Hedge Fund Accountant Relationship Specialty Start Date End Date Chris Abreu MD PCP - General Family Practice 04/27/17 documented as of this encounter
--- OUTSIDE RECORDS SUMMARY | 2023-10-27 01:53 | XMS_ITS | Encounter Summary ---
Author Organization [facility] Address [address] [place] [address] Care Team Providers Care De Icer Kit Assembler Name Role Phone Chris Abreu MD Primary Care Provider Unava ilable Encounter Details Date Type Department Care Team (Latest Contact Info) Description 06/13/1996 Orders Only Ankit Winkler MD [address] [place] [phone] Social History Tobacco Use Types Packs/Day Years Used Date Smoking Tobacco: Never Assessed Sex and Gender Information Value Date Recorded Sex Assigned at Not on file Gender Identity Not on file Sexual Orientation Not on file documented as of this encounter Plan of Treatment Not on file documented as of this encounter Visit Diagnoses Not on filedocumented in this encounter Care Teams De Icer Kit Assembler Relationship Specialty Start Date End Date Chris Abreu MD PCP - General Family Practice 04/27/17 documented as of this encounter
--- OUTSIDE RECORDS SUMMARY | 2023-10-27 01:53 | XMS_ITS | Encounter Summary ---
Author Organization [facility] Address [address], [place] [address] Care Team Providers Care Department Editor Name Role Phone Chris Abreu MD Primary Care Provider David ilvira Encounter Details Date Type Department Care Team (Latest Contact Info) Description 09/04/1995 Orders Only Amada Stubbs MD [address] [place] [address] Social History Tobacco Use Types [...] on filedocumented in this encounter Care Teams Department Editor Relationship Specialty Start Date End Date Chris Abreu MD PCP - General Family Practice 04/27/17 documented as of this encounter
--- OUTSIDE RECORDS SUMMARY | 2023-10-27 01:53 | XMS_ITS | Clinical Summary ---
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 PT no longer part of [facility]. Do not call with any follow up! [...] 06/16/2012 Anxiety Coronary artery disease invo lving [place] coronary artery of [place] heart without angina pectoris Overview: cardiac cath [...] T Respiratory Rate 20 05/19/2017 4:14 PM DOCUMENT CONTROL SPECIALIST Oxygen Saturation 95% 12/24/2020 12:57 PM CDT [...] this topic Medical Devices Implanted Type Area Bakery Sales Clerk Device Identifier Shelf Expiration Date Model / Serial / Lot Right Atrial Lead-07/25/2016 Implanted:07/25 by Francisco J King MD (Quantity not on file) [employer] V[employer] 7740-45 / [id number] / Right Ventricular Lead-07/25/2016 Implanted:07/25 by Francisco J King MD (Quantity not on file) [employer] 7741-42 / [id number] / Left Ventricular Lead-07/25/2016 Implanted:07/25 by Francisco J King MD (Quantity not on file) [employer] 4674-86 / [id number] / Pacemaker-Eze Sci Implanted:07/25 by Francisco J King MD (Quantity not on file) Pacemaker [employer] VALITUDE X4 HASHER OPERATOR-P U128 / [id number] / Bone Cement [place]os [id number] Implanted:Qty: 2 on 05/24/2014 by Chris Wang MD at [facility] Right: Knee [employer] 10/27/2018-1112-140 -01 / / [id number] Imp Plate Tibial Zim Nexgen Size 4 Implanted:Qty: 1 on 05/24/2014 by Chris Wang MD at [facility] Right: Knee [employer] 03/29/2024-5980-037 -02 / / [id number] Imp Comp Femoral Zim Size D Rt [id number] Implanted:Qty: 1 on 05/24/2014 by Chris Wang MD at [facility] Right: Knee [employer] 12/28/2023-5964-014 -52 / / [id number] Imp Comp Patella Zim [employer] 8.5x32mm Implanted:Qty: 1 on 05/24/2014 by Chris Wang MD at [facility] Right: Knee [employer] 01/27/2022-5972-065 -32 / / [id number] Imp Art Surface Zim Lps Flex Cd 3-4 12mm [id number] Implanted:Qty: 1 on 05/24/2014 by Chris Wang MD at [facility] Right: Knee [employer] 09/26/2018-5962-030 -12 / / [id number] Procedures Procedure Name Priority Date/Time Associated Diagnosis Comments LIPID PROFILE Routine 12/24/2020 11:07 AM CDT Coronary artery disease involving [place] coronary artery of [place] heart without angina pectoris BASIC METABOLIC PANEL Routine 08/20/2020 1:39 PM CDT Acute on chronic heart failure with preserved ejection fraction (HFpEF) (H) HEMOGLOBIN A1C Routine 05/07/2017 8:25 AM DOCUMENT CONTROL SPECIALIST from Last 3 Months or Most Recently Relevant to Health Maintenance Results * (ABNORMAL) Lipid Profile (12/24/2020 11:07 AM CDT) [facility] Cholesterol 121 <200 mg/dL 12/24/2020 11:44 AM [...] PA-C LAB - BLOOD ORD ERABLES LABORATORY [facility] Lab [address], [address] [place] [address], [place] [phone] * (ABNORMAL) Basic metabolic panel (08/20/2020 1:39 PM CDT) Sodium 136 133 - 144 mmol/L 08/20/2020 2:33 PM CDT [facility] Potassium 4.2 3.4 - 5.3 mmol/L 08/20/2020 2:33 PM T [facility] Chloride 101 94 - 109 mmol/L 08/20/2020 2:33 PM T [facility] Carbon Dioxide 29 20 - 32 mmol/L 08/20/2020 2:41 PM [facility] Anion Gap 6 3 - 14 mmol/L 08/20/2020 2:41 PM [facility] Glucose 183(H) 70 - 99 mg/dL 08/20/2020 2:41 PM [facility] Urea Nitrogen 22 7 - 30 mg/dL 08/20/2020 2:41 PM [facility] Creatinine 0.88 0.52 - 1.04 mg/dL 08/20/2020 2:41 PM [facility] GFR Estimate 63 >60 mL/min/{1. 73_m2} 08/20/2020 2:41 PM [facility] Comment: Non GFR Calc Starting 03/16/2018, serum creatinine based estimated GFR (eGFR) will be calculated using the Chronic Kidney Disease Epidemiology Collaboration (CKD-EPI) equation. GFR Estimate If Black 73 >60 mL/min/{1. 73_m2} 08/20/2020 2:41 PM [facility] Comment: GFR Calc Starting 03/16/2018, serum creatinine based estimated GFR (eGFR) will be calculated using the Chronic Kidney Disease Epidemiology Collaboration (CKD-EPI) equation. Calcium 9.6 8.5 - 10.1 mg/dL 08/20/2020 2:41 PM CDT [facility] Blood 08/20/2020 1:39 PM CDT 08/20/2020 1:40 PM CDT Crystal Abraham PA-C LAB - BLOOD ORD ERABLES [facility] [address] [place] [address], [facility] [phone] * (ABNORMAL) Hemoglobin A1c (05/07/2017 8:25 AM DOCUMENT CONTROL SPECIALIST) Hemoglobin A1C 7.6(H) 4.2 - 6.1 % 05/07/2017 2:37 PM DOCUMENT CONTROL SPECIALIST [facility] Blood specimen (specimen) STRUCTURE OF LEFT UPPER LIMB / Unknown Venipuncture / Unknown 05/07/2017 8:25 AM DOCUMENT CONTROL SPECIALIST 05/07/2017 12:06 PM DOCUMENT CONTROL SPECIALIST Rosanne Turner NET WEB DEVELOPER LAB - BLOOD OR DERABLES Performing Organization Address City/[facility]/ZIP Co de Phone Number O LAB [address] [place] [address], [facility] [address] [place] [address] from Last 3 Months or Most Recently Relevant to Health Maintenance Advance Directives For more information, please contact: [phone] Documents on File Type Date Recorded Patient Sour Bleaching Pleater Expl anation Advance Directives and Living Will [...] 4:01 PM 02/19/2016 8:27 AM Care Teams Resawyer Relationship Specialty Start Date End Date Jesus Mistry PCP - General Family Practice 04/14/19
--- OUTSIDE RECORDS SUMMARY | 2023-10-27 01:53 | XMS_ITS | Encounter Summary ---
Author Organization [facility] Address [address], [place] [address] Care Team Providers Care Elevator Attendant Name Role Phone Chris Abreu MD Primary Care Provider David ilvira Encounter Details Date Type Department Care Team (Latest Contact Info) Description 04/13/1995 Orders Only Amada Stubbs MD [address] [place] [address] Social History Tobacco Use Types [...] on filedocumented in this encounter Care Teams Elevator Attendant Relationship Specialty Start Date End Date Chris Abreu MD PCP - General Family Practice 04/27/17 documented as of this encounter
--- OUTSIDE RECORDS SUMMARY | 2023-10-27 01:53 | XMS_ITS | Encounter Summary ---
Author Organization [facility] Address [address] [address] Care Team Providers Care Associate Professor Physician Name Role Phone Chris Abreu MD Primary Care Provider David ilvira Encounter Details Date Type Department Care Team (Latest Contact Info) Description 09/19/1995 Orders Only Amada Stubbs MD [address] [place] [address] Social History Tobacco Use Types [...] on filedocumented in this encounter Care Teams Associate Professor Physician Relationship Specialty Start Date End Date Chris Abreu MD PCP - General Family Practice 04/27/17 documented as of this encounter
--- OUTSIDE RECORDS SUMMARY | 2023-10-27 01:53 | XMS_ITS | Encounter Summary ---
Author Organization [facility] Address [address], [place] [address] Care Team Providers Care Tube Cleaner Name Role Phone Chris Abreu MD Primary Care Provider Unava ilable Encounter Details Date Type Department Care Team (Latest Contact Info) Description 07/04/1996 Orders Only Aleksandr Diez MD [address] [place], [place] [phone] Social History Tobacco Use Types Packs/Day Years Used Date Smoking Tobacco: Never Assessed Sex and Gender Information Value Date Recorded Sex Assigned at Not on file Gender Identity Not on file Sexual Orientation Not on file documented as of this encounter Plan of Treatment Not on file documented as of this encounter Visit Diagnoses Not on filedocumented in this encounter Care Teams Tube Cleaner Relationship Specialty Start Date End Date Chris Abreu MD PCP - General Family Practice 04/27/17 documented as of this encounter
--- OUTSIDE RECORDS SUMMARY | 2023-10-27 01:54 | XMS_ITS | Clinical Summary ---
Author Organization [employer] [facility] [employer] [facility] Address [place], [place] [address] Care Team Providers Care Audio Visual Technician Name Role Phone Jesus Mistry MD Primary [...] mellitus with diabetic polyneuropathy, unspecified whether terminal block assembler insulin use (HC) TAKE 4 TABLETS BY [...] WalkerIndications: Polymyalgia rheumatica (HC),Coronary artery disease involving twenty-nine palms coronary artery without angina pectoris, unspecified whether twenty-nine palms or transplanted heart Walker with wheels,seat,hand brakes,and [...] mellitus with diabetic polyneuropathy, unspecified whether terminal block assembler insulin use (HC) Take 1 Tablet (40 [...] 12 HOURS WITHIN 24 HOUR PERIOD. 10/13/19 Active nystatin 100,000 unit/gram creamIndications:R bob Apply topically to affected area(s) two times daily. 10/13/19 24 Active acetaminophen (TYLENOL EXTRA STRGTH) 500 mg tabletIndications: Pain Take 2 tablets by mouth 2 times daily. 180 tablet 3 07/27/19 024 Discontinued nitroglycerin (NITROSTAT) 0.4 mg sublingual [...] diabetes mellitus with diabetic polyneuropathy, unspecified whether senior living insulin use (HC) TAKE ONE TABLET BY [...] change per medication history (E-cancel not sent)) FLUoxetine (PROZAC) 20 mg capsuleIndications :Depression, unspecified [...] posterior). 30 g 10/13/19 24 024 Discontinued penicillin v potassium (PEN-VEE K) 500 mg tabletIndications: dental infection Take 1 Tablet (500 mg) by mouth four times daily before meals and at bedtime for 3 days. 10/13/19 24 024 oxyCODONE (ROXICODONE) 5 mg immediate release tabletIndications: Pain Take 1 Tablet (5 mg) by mouth 2 times daily if needed for Pain. 20 Tablet 10/13/19 24 024 Discontinued(*P atient states no longer taking) Active Problems Problem Noted Date Diagnosed Date [...] Overview: working on weight loss with the [employer] weight loss program in [place] Hyperlipidemia LDL goal < 100 02/03/2012 12/18/2022 Overview: 06/25/15: TC 111, TG 158, HDL 41, LDL 38. Atorvastatin 40mg Encounters Date Type Department Care Team Description 10/20/2023 Telephone [facility] [address] [place] [address] Jesus Mistry MD Form (signed med list and visit notes ) 10/16/2023 Nurse Triage [facility] [address] [place] [address] Jesus Mistry MD Concerns 10/13/2023 Orders Only [facility] [address] [place] [address] Dustin Barajas NP <No scans attached> 10/06/2023 3:32 PM CDT - 10/13/2023 12:30 PM CDT Hospital Encounter [facility] [address] [facility] [place] [address] Lacey Rascon MD Bowler, MD Nela Castro Hung C, MD Drevlow, Keenan Edmonds, DO Rivera, Gertrude Rondon, ROSANNA Herrmann, Marily Valente, DO Ely Cain, MD Karl Mcwilliams, Dustin Zacarias NP Social problem (Primary Dx); Transportation insecurity; Polymyalgia rheumatica (HC); Coronary artery disease involving twenty-nine palms coronary artery without angina pectoris, unspecified whether twenty-nine palms or transplanted heart; Mild major depression (HC); Anxiety; Rash; Type 2 diabetes mellitus without complication, without long-term current use of insulin (HC); Pain; Primary insomnia; Paroxysmal A-fib (HC); Type 2 diabetes mellitus with diabetic polyneuropathy, unspecified whether senior living insulin use (HC); Depression, unspecified depression type; Ischemic cardiomyopathy; Mechanical back pain; Dental infection; Neck pain Discharge Disposition: Snf Facility 10/06/2023 Travel 09/21/2023 Refill [facility] [address] [place] [address] Jesus Mistry MD Refill Request (Hydroxyzine Hcl) 09/09/2023 Telephone [facility] [address] [place] [address] Jesus Mistry MD Refill Request (oxyCODONE (ROXICODONE), pramipexole (MIRAPEX)) 08/25/2023 Refill [facility] [address] [place] [address] Jesus Mistry MD Refill Request (Spironolactone, Fluoxetine, Furosemide, Omeprazole) 08/19/2023 Refill [facility] [address] [place] [address] Jesus Mistry MD Refill Request (Hydroxyzine Hcl) 08/11/2023 Telephone [facility] [address] [place] [address] Jesus Mistry MD FYI 08/10/2023 Orders Only [facility] [address] [place] [address] Jesus Mistry MD <No scans attached> 08/10/2023 Telephone [facility] [address] [place] [address] Jesus Mistry MD Concerns (Medical needs/) 08/07/2023 Orders Only [facility] [address] [place] [address] Jesus Mistry MD <No scans attached> 08/06/2023 Telephone [facility] [address] [place] [address] Jesus Mistry MD Referral 07/29/2023 Telephone [facility] [address] [place] [address] Jesus Mistry MD Questions (on receiving fax) from Last 3 Months Immunizations Name Administration Dates Next Due COVID-19 vaccine (Moderna 100mcg/0.5mL) PF, MDV 02/28/2021,06/20/2020,05/23/2020 Influenza A (H1N1), Inactivated 05/31/2009 Influenza, [...] booster 01/07/2022 01/08/2012, 03/2009 [facility] 08/27/2005, Additional history exists COVID-19 vaccine series [...] of27 resultswithin the time period is included. GLUCOSE METER 176(H) 65 - 100 mg/dL 10/13/2023 11:24 AM CDT [facility] Blood BLOOD SPECIMEN / Unknown 10/13/2023 11:23 AM CDT 10/13/2023 11:24 AM CDT Yoana Cain MD CHEMISTRY [facility] [address] [place] [address] * SODIUM (10/11/2023 5:47 AM CDT) Only the most recent of3 resultswithin the time period is included. SODIUM 136 136 - 145 mmol/L 10/11/2023 7:04 AM CDT [facility] Blood BLOOD SPECIMEN / Unknown Venipuncture / Unknown 10/11/2023 5:47 AM CDT 10/11/2023 6:26 AM CDT Marily Herrmann DO CHEMISTRY Performing Organization Address City/[facility]/ZIP Co de Phone Number [facility] [address] [place] [address] * POTASSIUM (10/11/2023 5:47 AM CDT) Only the most recent of2 resultswithin the time period is included. POTASSIUM 4.6 3.5 - 5.1 mmol/L 10/11/2023 7:04 AM CDT [facility] Blood BLOOD SPECIMEN / Unknown Venipuncture / Unknown 10/11/2023 5:47 AM CDT 10/11/2023 6:26 AM CDT Marily Herrmann DO CHEMISTRY Performing Organization Address City/[facility] Co de Phone Number [facility] [address] [place] [address] * (ABNORMAL) CREATININE (10/11/2023 5:47 AM CDT) Only the most recent of3 resultswithin the time period is included. Pathologist [facility] eGFR 66(L) >90 mL/min/1.7 3m2 10/11/2023 7:04 AM CDT [facility] Comment:As of 2021, eG FR is calculated by the CKD-EPI creatinine equation without race adjustment. ??eGFR can be influenced by muscle mass, exercise, and diet. ??The reported eGFR is an estimation only and is only applicable if the renal function is stable. CREATININE 0.88 0.50 - 0.90 mg/dL 10/11/2023 7:04 AM CDT [facility] Blood BLOOD SPECIMEN / Unknown Venipuncture / Unknown 10/11/2023 5:47 AM CDT 10/11/2023 6:26 AM CDT Marily Herrmann DO CHEMISTRY Performing Organization Address City/[facility]/ZIP Co de Phone Number [facility] [address] [place] [address] * HEMOGLOBIN (10/09/2023 6:17 AM CDT) Only the most recent of2 resultswithin the time period is included. HEMOGLOBIN 12.4 12.0 - 16.0 g/dL 10/09/2023 6:35 AM CDT [facility] MCV 91 80 - 100 fL 10/09/2023 6:35 AM CDT [facility] Blood BLOOD SPECIMEN / Unknown Venipuncture / Unknown 10/09/2023 6:17 AM CDT 10/09/2023 6:26 AM CDT Keenan Ames DO HEMATOLOGY Performing Organization Address City/[facility]/ZIP Co de Phone Number [facility] [address] [place] [address] * PLATELET COUNT (10/07/2023 5:40 AM CDT) PLATELET COUNT 301 140 - 440 thou/cu mm 10/07/2023 6:28 AM CDT [facility] MPV 8.7 6.5 - 11.0 fL 10/07/2023 6:28 AM CDT [facility] Blood BLOOD SPECIMEN / Unknown Venipuncture / Unknown 10/07/2023 5:40 AM CDT 10/07/2023 6:17 AM CDT John Rondon MD HEMATOLOGY [facility] [address] [place] [address] * WHITE BLOOD COUNT (10/07/2023 5:40 AM CDT) WHITE BLOOD COUNT 8.7 4.5 - 11.0 thou/cu mm 10/07/2023 6:28 AM CDT [facility] Blood BLOOD SPECIMEN / Unknown Venipuncture / Unknown 10/07/2023 5:40 AM CDT 10/07/2023 6:17 AM CDT John Rondon MD HEMATOLOGY [facility] [address] [facility] [place] [address] * (ABNORMAL) CBC WITH AUTO DIFFERENTIAL (10/06/2023 9:14 PM CDT) WHITE BLOOD COUNT 9.5 4.5 - 11.0 thou/cu mm 10/06/2023 9:23 PM T [facility] RED BLOOD COUNT 4.06 4.00 - 5.20 mil/cu mm 10/06/2023 9:23 PM [facility] HEMOGLOBIN 12.2 12.0 - 16.0 g/dL 10/06/2023 9:23 PM [facility] HEMATOCRIT 36.8 33.0 - 51.0 % 10/06/2023 9:23 PM [facility] MCV 91 80 - 100 fL 10/06/2023 9:23 PM [facility] MCH 30.0 26.0 - 34.0 pg 10/06/2023 9:23 PM [facility] MCHC 33.2 32.0 - 36.0 g/dL 10/06/2023 9:23 PM [facility] RDW 14.0 11.5 - 15.5 % 10/06/2023 9:23 PM [facility] PLATELET COUNT 297 140 - 440 thou/cu mm 10/06/2023 9:23 PM [facility] MPV 8.5 6.5 - 11.0 fL 10/06/2023 9:23 PM [facility] % NEUT 64.6 % 10/06/2023 9:23 PM [facility] % LYMPH 21.9 % 10/06/2023 9:23 PM [facility] % MONO 8.9 % 10/06/2023 9:23 PM [facility] % EOS 4.1 % 10/06/2023 9:23 PM T [facility] % BASO 0.5 % 10/06/2023 9:23 PM T [facility] ABSOLUTE NEUTROPHILS 6.1 1.7 - 7.0 thou/cu mm 10/06/2023 9:23 PM CDT [facility] ABSOLUTE LYMPHOCYTES 2.1 0.9 - 2.9 thou/cu mm 10/06/2023 9:23 PM T [facility] ABSOLUTE MONOCYTES 0.9(H) <0.9 thou/cu mm 10/06/2023 9:23 PM T [facility] ABSOLUTE EOSINOPHILS 0.4 <0.5 thou/cu mm 10/06/2023 9:23 PM T [facility] ABSOLUTE BASOPHILS 0.1 <0.3 thou/cu mm 10/06/2023 9:23 PM T [facility] Blood BLOOD SPECIMEN / Unknown Butterfly / Unknown 10/06/2023 9:14 PM CDT 10/06/2023 9:19 PM CDT John Rondon MD HEMATOLOGY [facility] [address] [place] [address] * PHOSPHORUS (10/06/2023 9:14 PM CDT) PHOSPHORUS 3.7 2.5 - 4.5 mg/dL 10/06/2023 9:38 PM CDT [facility] Blood BLOOD SPECIMEN / Unknown Butterfly / Unknown 10/06/2023 9:14 PM CDT 10/06/2023 9:19 PM CDT John Rondon MD CHEMISTRY [facility] [address] [place] [address] * MAGNESIUM (10/06/2023 9:14 PM CDT) MAGNESIUM 2.0 1.6 - 2.4 mg/dL 10/06/2023 9:38 PM CDT [facility] Blood BLOOD SPECIMEN / Unknown Butterfly / Unknown 10/06/2023 9:14 PM CDT 10/06/2023 9:19 PM CDT John Rondon MD CHEMISTRY Performing Organization Address [facility] Co de Phone Number [facility] [address] [place] [address] * (ABNORMAL) Hemoglobin A1C (10/06/2023 9:14 PM CDT) [facility] HEMOGLOBIN A1C MONITORING (POCT) 10.3(H) <=6.4 % 10/07/2023 7:21 AM CDT [facility] Blood BLOOD SPECIMEN / Unknown Add On / Unknown 10/06/2023 9:14 PM CDT 10/07/2023 1:41 AM CDT Narrative [facility] - 10/07/2023 7:21 AM CDT ? [...] John Rondon MD CHEMISTRY Performing Organization Address [facility] Co de Phone Number [facility] [address] [place] [address] * CK TOTAL (10/06/2023 9:14 PM CDT) [facility] CK,TOTAL 83 26 - 192 IU/L 10/06/2023 9:38 PM [facility] Blood BLOOD SPECIMEN / Unknown Butterfly / Unknown 10/06/2023 9:14 PM CDT 10/06/2023 9:19 PM CDT Jhon Rondon MD CHEMISTRY [facility] [address] [place] [address] * (ABNORMAL) BASIC METABOLIC PANEL (10/06/2023 9:14 PM CDT) SODIUM 134(L) 136 - 145 mmol/L 10/06/2023 9:38 PM [facility] POTASSIUM 4.4 3.5 - 5.1 mmol/L 10/06/2023 9:38 PM [facility] CHLORIDE 96(L) 98 - 107 mmol/L 10/06/2023 9:38 PM [facility] CO2,TOTAL 29 22 - 29 mmol/L 10/06/2023 9:38 PM [facility] ANION GAP 9 5 - 18 10/06/2023 9:38 PM [facility] GLUCOSE 254(H) 70 - 99 mg/dL 10/06/2023 9:38 PM [facility] CALCIUM 9.3 8.8 - 10.2 mg/dL 10/06/2023 9:38 PM [facility] BUN 18 8 - 23 mg/dL 10/06/2023 9:38 PM [facility] CREATININE 0.82 0.50 - 0.90 mg/dL 10/06/2023 9:38 PM [facility] BUN/CREAT RATIO 22(H) 10 - 20 9:38 PM [facility] eGFR 72(L) >90 mL/min/1.7 3m2 10/06/2023 9:38 PM [facility] Comment:As of 2021, eG FR is calculated by the CKD-EPI creatinine equation without race adjustment. ??eGFR can be influenced by muscle mass, exercise, and diet. ??The reported eGFR is an estimation only and is only applicable if the renal function is stable. Blood BLOOD SPECIMEN / Unknown Butterfly / Unknown 10/06/2023 9:14 PM CDT 10/06/2023 9:19 PM CDT John Rondon MD CHEMISTRY [facility] [address] [place] [address] * (ABNORMAL) DRUG SCREEN RAPID URINE INHOUSE (10/06/2023 4:21 PM CDT) THC METABOLITES,STU L Not Detected Not Detected 10/06/2023 4:43 PM [facility] PCP,QUAL Not Detected Not Detected 10/06/2023 4:43 PM [facility] COCAINE,QUAL Not Detected Not Detected 10/06/2023 4:43 PM [facility] METHAMPHETAMINE , QUALITATIVE Not Detected Not Detected 10/06/2023 4:43 PM [facility] OPIATES,QUAL Not Detected Not Detected 10/06/2023 4:43 PM [facility] AMPHETAMINE, QUALITATIVE Not Detected Not Detected 10/06/2023 4:43 PM [facility] BENZODIAZEPINES ,QUAL Not Detected Not Detected 10/06/2023 4:43 PM [facility] TRICYCLICS,QUAL Non-negative , consider further testing if indicated(A) Not Detected 10/06/2023 4:43 PM [facility] METHADONE, QUALITATIVE Not Detected Not Detected 10/06/2023 4:43 PM [facility] BARBITURATES,QU AL Not Detected Not Detected 10/06/2023 4:43 PM [facility] OXYCODONE, QUALITATIVE Non-negative , consider further testing if indicated(A) Not Detected 10/06/2023 4:43 PM [facility] BUPRENORPHINE, QUALITATIVE Not Detected Not Detected 10/06/2023 4:43 PM [facility] Urine URINE SPECIMEN / Unknown Non-Blood / Unknown 10/06/2023 4:21 PM CDT 10/06/2023 4:26 PM CDT [facility] - 10/06/2023 4:43 PM CDT Please [...] order PCP confirmation. Dickson Ed Triage URINE [facility] [address] [place] [address] * (ABNORMAL) URINALYSIS MICROSCOPIC (10/06/2023 4:21 PM CDT) RBC 0-2 0-2, None Seen /HPF 10/06/2023 4:39 PM CDT [facility] WBC 6-10(A) 0-2, 3-5, None Seen /HPF 10/06/2023 4:39 PM CDT [facility] BACTERIA Few None Seen, Rare, Few Bacteria/ HPF 10/06/2023 4:39 PM CDT [facility] EPITHELIAL CELLS Few None Seen, Few Epi/HPF 10/06/2023 4:39 PM CDT [facility] WHITE CELL CLUMPS Present(A) (none) 10/06/2023 4:39 PM CDT [facility] Urine URINE SPECIMEN / Unknown Non-Blood / Unknown 10/06/2023 4:21 PM CDT 10/06/2023 4:26 PM CDT [facility] Triage URINE [facility] [address] [place] [address] * URINE CULTURE (10/06/2023 4:21 PM CDT) CULTURE <10,000 CFU/mL multiple organisms 10/07/2023 6:40 PM CDT [facility] Urine URINE SPECIMEN / Unknown Non-Blood / Unknown 10/06/2023 4:21 PM CDT 10/06/2023 4:26 PM CDT Lacey Rascon MD MICROBIOLOGY Performing Organization Address City/[facility]/ZIP Co de Phone Number [facility] [address] [address], * (ABNORMAL) UA W/ SEDIMENT EXAM REFLEXED PER CRITERIA (10/06/2023 4:21 PM CDT) COLOR Yellow Yellow Color 10/06/2023 4:39 PM T [facility] CLARITY Clear Clear Clarity 10/06/2023 4:39 PM T [facility] SPECIFIC GRAVITY,URINE 1.010 1.010, 1.015, 1.020, 1.025 10/06/2023 4:39 PM [facility] PH,URINE 6.0 6.0, 7.0, 8.0, 5.5, 6.5, 7.5, 8.5 10/06/2023 4:39 PM [facility] UROBILINOGEN, QUALITATIVE Normal Normal EU/dl 10/06/2023 4:39 PM [facility] PROTEIN, URINE Negative Negative mg/dL 10/06/2023 4:39 PM [facility] GLUCOSE, URINE >=1000(A) Negative mg/dL 10/06/2023 4:39 PM [facility] KETONES,URINE Negative Negative mg/dL 10/06/2023 4:39 PM CDT [facility] BILIRUBIN,URI NE Negative Negative 10/06/2023 4:39 PM CDT [facility] OCCULT BLOOD,URINE Negative Negative 10/06/2023 4:39 PM CDT [facility] NITRITE Negative Negative 10/06/2023 4:39 PM CDT [facility] LEUKOCYTE ESTERASE Moderate(A) Negative 10/06/2023 4:39 PM CDT [facility] Urine URINE SPECIMEN / Unknown Non-Blood / Unknown 10/06/2023 4:21 PM CDT 10/06/2023 4:26 PM CDT Dicks[facility] Ed Triage URINE [facility] [address] [place] [address] * (ABNORMAL) XR DXA BONE DENSITY 2 [...] recommended in 3-5 years. Judy Guerra PA-C [facility] 12/29/2022 ?? Narrative 12/29/2022 8:07 AM CDT For Patients: Results are automatically released to your [facility] account once available, in compliance with federal regulations. This means that you may see your results before your provider has had a chance to review them. Please allow 2-3 business days for your provider to comment on the results. XR DXA Bone Mineral Density (BMD) EXAM LOCATION: [address] [facility] [address] PATIENT NAME: Evon Hinton DATE OF : [...] scanners are made by the same medical scientist. PROCEDURE: Dual-energy x-ray absorptiometry performed with routine [...] Documents on File Type Date Recorded Patient Farmer General Expl anation POLST 09/21/2019 3:08 PM POLST 09/13 [facility] 08/10/2015 12:00 AM Healthcare Directive 12/12/2014 12:12 PM [facility]ATOM[facility] REQUEST PROGRAM DONATION FORM * DNR (Latest Code Status on File) Date Activated Date Inactivated Comments 10/06/2023 10:58 PM 10/13/2023 2:53 PM POLST Question Answer Comments Code Status Discussion: Reviewed Preferences Care Teams Audio Visual Technician Relationship Specialty Start Date End Date Jesus Mistry MD [address] [place] [address] PCP - General Family Practice 12/02/18
== END 2023-10-05 19:26 | disposition home or self-care (01) ==
PROVIDERS: PCP Family Medicine; Visit Provider Family Medicine
DX: R53.1 Weakness (principal)
CPT/HCPCS: A0998

== ENCOUNTER 2023-10-06 14:16 | Outpatient (CLI) | payer MEDICARE, SELFPAY ==
--- OUTSIDE RECORDS SUMMARY | 2023-10-14 17:35 | XMS_ITS | Encounter Summary ---
[facility] Organization [facility] Address [address] [place] [id number] Care Team Providers Care Line Staker Name Role Phone Chris Abreu MD Primary Care Provider Unava ilable Encounter Details Date Type Department Care Team (Latest Contact Info) Description 10/14/1999 Orders Only Patrick Wiggins MD [address] [place], [place] [id number] Social History Tobacco Use Types Packs/Day Years Used Date Smoking Tobacco: Never Alcohol Use Standard Drinks/Week Comments No 0 (1 standard drink = 0.6 oz pur e alcohol) Sex and Gender Information Value Date Recorded Sex Assigned at Not on file Gender Identity Not on file Sexual Orientation Not on file documented as of this encounter Plan of Treatment Not on file documented as of this encounter Visit Diagnoses Not on filedocumented in this encounter Care Teams Line Staker Relationship Specialty Start Date End Date Chris Abreu MD PCP - General Family Practice 04/27/17 documented as of this encounter
--- OUTSIDE RECORDS SUMMARY | 2023-10-14 17:35 | XMS_ITS | Encounter Summary ---
Author Organization [facility] Address [address] [place] [id number] Care Team Providers Care Firmware Manager Name Role Phone Chris Abreu MD Primary Care Provider Unava ilable Encounter Details Date Type Department Care Team (Latest Contact Info) Description 10/30/1999 Orders Only Patrick Wiggins MD [address] [place], [place] [phone] Social History Tobacco Use Types Packs/Day Years [...] on filedocumented in this encounter Care Teams Firmware Manager Relationship Specialty Start Date End Date Chris Abreu MD PCP - General Family Practice 04/27/17 documented as of this encounter
--- OUTSIDE RECORDS SUMMARY | 2023-10-14 17:35 | XMS_ITS | Encounter Summary ---
Author Organization [facility] Address [address], [place] [address] Care Team Providers Care Expanded Duty Dental Assistant Name Role Phone Chris Abreu MD Primary Care Provider David ramires Encounter Details Date Type Department Care Team (Late st Contact Info) Description 02/04/2012 Correspondence External to [facility], Provider LAB RESULTS TO PT Social History Tobacco Use Types Packs/Day Years Used Date Smoking Tobacco: Never Alcohol Use Standard Drinks/Week Comments No 0 (1 standard drink = 0.6 oz pur e alcohol) Sex and Gender Information Value Date Recorded Sex Assigned at Not on file Gender Identity Not on file Sexual Orientation Not on file documented as of this encounter Progress Notes * [facility], Provider - 02/04/2012 12:00 AM CST L OPERATOR PNEUMATIC documented in this encounter Plan of Treatment Not on file documented as of this encounter Visit Diagnoses Not on filedocumented in this encounter Care Teams Expanded Duty Dental Assistant Relationship Specialty Start Date End Date Chris Abreu MD PCP - General Family Practice 04/27/17 documented as of this encounter
--- OUTSIDE RECORDS SUMMARY | 2023-10-14 17:35 | XMS_ITS | Clinical Summary ---
Author Organization [facility] Address [address] [place] [address] Care Team Providers Care Consulting Sales Executive Name Role Phone Chris Abreu MD Primary Care Provider Unava ilable Source Comments You are receiving this document as you are listed as the primary care provider,follow-up provider, or the patient has been referred to you for consultation.This is in compliance with the Medicare andMedicaid EHR Incentive Program,which states Providers who transition their patient to another setting of careor provider of care or refers their patient to another provider of care shouldprovide summary care record for each transition of care or referral. [facility] Allergies Active Allergy Reactions Criticality Noted Date Comments Adhesive Rash Low 05/24/2014 Cephalosporins Nausea 08/06/2009 Diarrhea also Codeine Medium 04/27/2017 Nausea and vomiting Diazepam Anxiety Medium 04/29/2006 Gabapentin Other, see comments 01/20/2013 Medication made her very anxious, gave her a crawly feeling Glimepiride Unknown Medium 03/26/2015 Blood sugars get too low even with decreased dosage Latex Medium 09/02/2014 Topical reactions ,Skin bonilla, blisters Meperidine And Related agitated Metronidazole Gastrointestinal High 08/07/2015 Violent diarrhea Morphine And Codeine Nausea 10/14/1999 Stomach upset Morphine And Codeine 10/14/1999 Nickel 09/02/2014 Ticagrelor Breathing Difficulty High 10/31/2015 Medications Medication Sig Dispensed Refills Start Date End Date Status VITAMIN C 500 MG OR TABS One by mouth every day 30 12 01/09/2005 Active ONE TOUCH ULTRASOFT LANCETS use as directed 1 box prn 04/16/2006 Active blood glucose (ONE TOUCH ULTRA TEST) strip use as directed 100 5 06/11/2009 Active triamcinolone acetonide (AKA KENALOG) 0.1 % ointmentIndicatio ns:Eczema Apply topically two times a day. 80 g 1 01/20/2013 Active Additional Information Patient taking differently:Topical BID,Indications: skin irritation, Reported on 04/29/2017 traZODone (AKA DESYREL) 50 MG tablet Take 1 tablet by mouth nightly. LW Addl Instr:Indicated for: Depression 90 3 01/01/2009 Active Melatonin 10 MG TABSIndications:i nsomnia Take by mouth. Indications: insomnia 09/02/2014 Active FLUoxetine (AKA PROZAC) 10 MG capsuleIndication s:mental health Take 20 mg by mouth daily. Indications: mental health 09/02/2014 Active meloxicam (AKA MOBIC) 7.5 MG tablet Take 1 tablet by mouth daily (every 24 hours). 21 tablet 2 08/07/2015 Active Additional Information Patient taking differently:7.5 mg Oral DAILY (NS),Indications: pain, Reported on 04/29/2017 metFORMIN (GLUCOPHAGE) 500 MG tabletIndications :Type 2 Diabetes Mellitus Take 500 mg by mouth two times a day with meals. Indications: Type 2 Diabetes 09/10/2015 Active Multiple Vitamins-Minerals (MULTIVITAMIN ADULT OR)Indications:moore pplementation Take 1 Tab by mouth Daily. Indications: supplementation 09/10/2015 Active metoPROLOL succinate (TOPROL XL) 50 MG 24 hour release tabletIndications :Hypertension Take 50 mg by mouth Daily. Indications: High Blood Pressure Disorder 09/10/2015 Active atorvastatin (LIPITOR) 40 MG tabletIndications :heart health Take 40 mg by mouth Daily. Indications: heart health 09/10/2015 Active furosemide (LASIX) 20 MG tabletIndications :Hypertension Take 20 mg by mouth Daily. Indications: High Blood Pressure Disorder 09/10/2015 Active lisinopril (ZESTRIL) 20 MG tabletIndications :Hypertension Take 20 mg by mouth Daily. Indications: High Blood Pressure Disorder 09/10/2015 Active amitriptyline (ELAVIL) 10 MG tabletIndications :Insomnia Take 20 mg by mouth every evening. Indications: Trouble Sleeping Active senna (SENOKOT) 8.6 MG tabletIndications :Constipation Take 1 Tab by mouth daily. Take while on narcotics. Hold for loose stools. Indications: Constipation 30 Tab 04/30/2017 Active docusate sodium (COLACE) 100 MG capsuleIndication s:Constipation Take 1 Cap by mouth two times a day. Take while on narcotics. Hold for loose stools. Indications: Constipation 30 Cap 04/30/2017 Active HYDROcodone-aceta minophen (NORCO) 5-325 MG tablet Take 1 Tab by mouth. 07/24/2017 Active diclofenac (VOLTAREN) 1 % gelIndications:pa in Apply 2 g to skin two times a day. Apply to right CMC area as needed bid Indications: pain 100 g 1 01/13/2018 Active Active Problems Problem Noted Date Diagnosed Date Anxiety 05/07/2017 Depression 05/07/2017 Postoperative anemia due to acute blood loss (HFpEF) heart failure with preserved ejection fr action 04/28/2017 Biventricular cardiac pacemaker in situ 04/28/19 18 S/P reverse total shoulder arthroplasty, right 0 04/27/2017 Coronary artery disease invo lving [place] coronary artery of [place] heart without angina pectoris 04/27/2017 Degenerative disc disease, cervical 01/20/2013 Overview: S/p one C spine surgery, has additional bulging discs. She has been advised conservative treatment and avoid repeat surgery, saw Dr. Dimitrios Eli RLS (restless legs syndrome) 10/15/2011 DJD (degenerative joint disease) of knee 010 Overview: DJD (Degenerative Joint Disease) of Knee right Osteoarthritis 09/15/2007 Morbid obesity 12/15/2005 Overview: WEIGHT MANAGEMENT PROBLEM Hypertension 12/25/2004 Hyperlipidemia with target LDL less than 100 Overview: ICD 10 Type II diabetes mellitus 12/25/2004 Overview: Type II or unspecified type diabetes mellitus without mention of complication, not stated as uncontrolled (HRC) Esophageal reflux 12/25/2004 Meniere's disease 12/25/2004 Overview: Epic Chronic fatigue syndrome 12/25/2004 Fibromyalgia 09/06/1997 Endometriosis of uterus Resolved Problems Problem Noted Date Diagnosed Date Resolved Date Chronic left systolic heart failure 04/28/2017 04/28/2017 Ischemic cardiomyopathy 04/27/201704/01 Immunizations Name Administration Dates Next Due Flu Vac (3+ yrs) 01/17/2009, 8,04/22/2007,2006,01/14/2006,01/09/2005,03/01/1999 H1n1 Miv Sanofi 3+ Yr (Injected) 05/31/2009 Influenza IIV3 (Trivalent) F sallie Highdose, 65+ Yrs (91242) 02/16/2017,02/04/2010 Influenza, Unspecified Formulation 01/16/1998, PPSV23 (Pneumovax) 01/09/2005 Td 03/29/1995 Tdap 08/27/2005 Varicella 09/01/1997(Deferred: Immune by Prabhjot mc) Social History Tobacco Use Types Packs/Day Years Used Date Smoking Tobacco: Never Smokeless Tobacco: Never Alcohol Use Standard Drinks/Week Comments No 0 (1 standard drink = 0.6 oz pur e alcohol) Sex and Gender Information Value Date Recorded Sex Assigned at Not on file Gender Identity Not on file Sexual Orientation Not on file Last Filed Vital Signs Vital Sign Reading Time Taken Comments Blood Pressure 151/73 05/22/2017 6:19 AM MEDICAL IMAGING TECHNICIAN Pulse 62 05/22/2017 6:19 AM MEDICAL IMAGING TECHNICIAN Temperature 36.4 ??C (97.6 ??F) 05/22/2017 6:19 AM CS T Respiratory Rate 16 05/22/2017 6:19 AM MEDICAL IMAGING TECHNICIAN Oxygen Saturation 92% 05/01/2017 12: 00 PM MEDICAL IMAGING TECHNICIAN Inhaled Oxygen Concentration - - Weight 108.6 kg (239 lb 6.7 oz) 04/29/2017 3:57 PM MEDICAL IMAGING TECHNICIAN Height 157.5 cm (5' 2) 08/14/2017 1:54 PM CDT Body Mass Index 43.79 04/23/2017 12:15 PM MEDICAL IMAGING TECHNICIAN Plan of Treatment Health Maintenance Due Date Last Done Comments Zoster/Shingles (1 of 2) 06/28/1991 Adult Preventive Visit 09/19/1999 09/18/1998, 1996 Dexa 2006 Diabetes: Eye Exam 08/14/2012 08/15/2011 (H istorical Completion), 02/20/2009 (Historical Completion), 06/10/1995 Diabetes: Foot Exam 10/14/2012 10/15/2011 ( Completed), 02/04/2010, 01/17/2009, Additional history exists Diabetes: Urine Microalbumin 01/20/2014 01/20/2013, 10/15/2011, 12/25/2009, Additional history exists Diabetes: HGBA1C 07/26/2017 04/27/2017, , 10/15/2011, Additional history exists Diabetes: Lipid Panel 01/20/2018 01/20/2013 , 10/15/2011, 05/16/2010, Additional history exists Diabetes: Creatinine 05/01/2018 05/01/2017, 04/30/2017, 04/29/2017, Additional history exists Pneumococcal 65+ Yrs (3 - PPSV23 or PCV20) 12/03/2018 12/03/2017, 01/09/2005 DTaP/Tdap/Td (3 - Tdap) 01/07/2022 01/08/20, 08/27/2005, 03/29/1995 COVID-19 Vaccine ( - 2022- season) 2022 06/20/2020, 05/23/2020 Influenza (#1) 2023 03/21/2020, 12/28, 12/03/2017, Additional history exists HepA Aged Out No longer eligi ble based on patient's age to complete this topic HepB Aged Out No longer eligi ble based on patient's age to complete this topic Hib Aged Out No longer eligi ble based on patient's age to complete this topic IPV (Polio) Aged Out No longer eligi ble based on patient's age to complete this topic MCV4 Aged Out No longer eligi ble based on patient's age to complete this topic Procedures Procedure Name Priority Date/Time Associated Diagnosis Comments BASIC METABOLIC PANEL Specified Time 05/01/2017 8:23 AM MEDICAL IMAGING TECHNICIAN HGB A1C STAT 04/27/2017 11:05 AM MEDICAL IMAGING TECHNICIAN ALBUMIN/CREAT RATIO Routine 01/20/2013 12:37 PM CDT DIABETES MELLITUS TYPE II-UNCOMPL LIPID PANEL & DIRECT LDL (IF NEEDED) Routine 01/20/2013 12:37 PM CDT Hyperlipidemia LDL goal < 100 from Last 3 Months or Most Recently Relevant to Health Maintenance Results * (ABNORMAL) Basic Metabolic Panel (05/01/2017 8:23 AM MEDICAL IMAGING TECHNICIAN) Creatinine Serum 0.64 0.55 - 1.02 mg/dL PN SOFT Lab Glucose 150(H) 70 - 100 mg/dL PN SOFT Comment: The stated glucose range is for the fasting state. Non-fasting glucose range is 70-180 mg/dL CO2 31 22 - 31 mmol/L PN SOFT Chloride 101 98 - 109 mmol/L PN SOFT Potassium 4.5 3.5 - 5.2 mmol/L PN SOFT Sodium 137 136 - 145 mmol/L PN SOFT Blood Urea Nitrogen 13 9 - 26 mg/dL PN SOFT Calcium 8.7 8.4 - 10.2 mg/dL PN SOFT Est GFR Am >60 >60 mL/min/1.7 3m2 PN SOFT Est GFR Non-Afr Am >60 >60 mL/min/1.7 3m2 PN SOFT Comment: Normal>60, moderate decrease 30 - 59, severe decrease 15 - 29, renal failure <15 mL/min/1.73 m2 NOTE: ??Choose the eGFR result above appropriate for the race of the patient. 05/01/2017 8:23 AM MEDICAL IMAGING TECHNICIAN 05/01/2017 9:03 AM MEDICAL IMAGING TECHNICIAN Narrative PN [facility]FT - 05/01/2017 9:41 AM MEDICAL IMAGING TECHNICIAN Performed at [facility], [address] [place] [id number] CLIA number [id number] Wiliam Agudelo MD LAB_1 [facility] [address] [place] [address] * (ABNORMAL) HGB A1C (04/27/2017 11:05 AM MEDICAL IMAGING TECHNICIAN) HGB A1C 7.6(H) 4.0 - 5.6 % PN SOFT 04/27/2017 11:0 5 AM MEDICAL IMAGING TECHNICIAN 04/27/2017 11:12 AM MEDICAL IMAGING TECHNICIAN Narrative HAIR ALLEN - 04/27/2017 12:15 PM MEDICAL IMAGING TECHNICIAN Performed at [address] [address] CLIA number [id number] Ck Gonzalez DO LAB_1 Performing Organization Address [facility] Co de Phone Number ALEJANDRO [address] [place] [phone] * (ABNORMAL) LIPID PANEL AND DIRECT LDL(IF NEEDED) (01/20/2013 12:37 PM CDT) Hours Fasting 12 hours [facility] Cholesterol 167 0 - 199 mg/dl [facility] Triglyceride 218(H) 0 - 149 mg/dl [facility] HDL 31(L) >40 mg/dl [facility] LDL, Calc. 92 0 - 129 mg/dl [facility] Non HDL Chol, Calc 136 mg/dl [facility] 01/20/2013 12:3 7 PM CDT 01/20/2013 12:48 PM CDT Narrative [facility] - 01/20/2013 6:39 PM CDT Performed at [facility], [address] [place] [address] ??[phone] Treasure Valdez MD LAB_1 Performing Organization Address [facility] Co de Phone Number [facility] [phone] * MICROALB/CREAT RATIO (01/20/2013 12:37 PM CDT) Albumin, Urine, Random <0.5 mg/dl [facility] Creatinine,Ur Random 252.3 mg/dl [facility] Alb/Creat Ratio, Urine, Random <2 <30 mg/g creatinine [facility] Urine specimen (specimen) 01/20/2013 12:37 PM CDT 01/20/2013 12:48 PM CDT Narrative [facility] - 01/20/2013 4:23 PM CDT Performed at [facility], [address] [place] [address] ??[phone] Treasure Valdez MD LAB_1 [facility] [phone] from Last 3 Months or Most Recently Relevant to Health Maintenance Advance Directives * Full Code (Latest Code Status on File) Date Activated Date Inactivated Comments 04/27/2017 6:09 PM 05/01/2017 4:33 PM Care Teams Consulting Sales Executive Relationship Specialty Start Date End Date Chris Abreu MD PCP - General Family Practice 04/27/17
--- OUTSIDE RECORDS SUMMARY | 2023-10-14 17:36 | XMS_ITS | Encounter Summary ---
Author Organization [facility] [address] [place] [address] Care Team Providers Care School Psychology Professor Name Role Phone Chris Abreu MD Primary Care Provider David ramires Encounter Details Date Type Department Care Team (Late st Contact Info) Description 08/22/1998 Orders Only [facility] Radiology [address] [place], [place] [phone] Patrick Wiggins MD [address] [place], [place] [phone] PAIN IN LIMB Social History Tobacco Use Types Packs/Day Years Used Date Smoking Tobacco: Never Alcohol Use Standard Drinks/Week Comments No 0 (1 standard drink = 0.6 oz pur e alcohol) Sex and Gender Information Value Date Recorded Sex Assigned at Not on file Gender Identity Not on file Sexual Orientation Not on file documented as of this encounter Procedure Notes * Siva Oneal - 08/22/1998 12:00 AM CDTAssociated Order(s): HIP UNILATERAL,2 VIEWS CLINICAL DATA: PAIN INTERPRETATION: LEFT HIP, 08/22/98: Negative left hip. Siva Oneal MD Department of Radiology cc: Radiology Patrick Wiggins MD documented in this encounter Plan of Treatment Not on file documented as of this encounter Procedures Procedure Name Priority Date/Time Associated Diagnosis Comments RADEX HIP UNI COMPL MINIMUM 2 VIEWS 08/22/1998 12:00 AM CDT Pain In Limb documented in this encounter Results * HIP UNILATERAL,2 VIEWS (08/22/1998 12:00 AM CDT) Anatomical Region Laterality Modality Other 08/22/1998 Narrative Transcriptions Siva Oneal - 08/22/1998 12:00 AM CDTCLINICAL DATA: PAIN INTERPRETATION: LEFT HIP, 08/22/98: Negative left hip. Siva Oneal MD Department of Radiology cc: Radiology BC Patrick Wiggins MD Patrick Wiggins MD RAD_1 documented in this encounter Visit Diagnoses Diagnosis Pain in limb documented in this encounter Care Teams School Psychology Professor Relationship Specialty Start Date End Date Chris Abreu MD PCP - General Family Practice 04/27/17 documented as of this encounter
--- OUTSIDE RECORDS SUMMARY | 2023-10-14 17:36 | XMS_ITS | Encounter Summary ---
Author Organization [facility] Address [address], [place] [address] Care Team Providers Care Tool Procurement Coordinator Name Role Phone Chris bAreu MD Primary Care Provider David ilvira Encounter Details Date Type Department Care Team (Latest Contact Info) Description 11/08/1997 Orders Only Jimi Sharp MD [address] [place], [place] [phone] Social History Tobacco Use Types Packs/Day Years [...] on filedocumented in this encounter Care Teams Tool Procurement Coordinator Relationship Specialty Start Date End Date Chris Abreu MD PCP - General Family Practice 04/27/17 documented as of this encounter
--- OUTSIDE RECORDS SUMMARY | 2023-10-14 17:36 | XMS_ITS | Encounter Summary ---
Author Organization [facility] Address [address] [place] [address] Care Team Providers Care Network Security Architect Name Role Phone Chris Abreu MD Primary Care Provider Unava ilable Encounter Details Date Type Department Care Team (Latest Contact Info) Description 08/16/1997 Notes/Orders David Whitfield [facility] [address] [place], [place] [phone] Social History Tobacco Use Types Packs/Day Years Used Date Smoking Tobacco: Never Assessed Sex and Gender Information Value Date Recorded Sex Assigned at Not on file Gender Identity Not on file Sexual Orientation Not on file documented as of this encounter Plan of Treatment Not on file documented as of this encounter Visit Diagnoses Not on filedocumented in this encounter Care Teams Network Security Architect Relationship Specialty Start Date End Date Chris Abreu MD PCP - General Family Practice 04/27/17 documented as of this encounter
--- OUTSIDE RECORDS SUMMARY | 2023-10-14 17:36 | XMS_ITS | Encounter Summary ---
Author Organization [facility] Address [address] [place] [address] Care Team Providers Care Breaster Name Role Phone Chris Abreu MD Primary Care Provider Unava ilable Encounter Details Date Type Department Care Team (Latest Contact Info) Description 03/07/1997 Orders Only Dino Pierce MD [address] [facility] [place], [place] [address] Social History Tobacco Use Types Packs/Day Years Used Date Smoking Tobacco: Never Assessed Sex and Gender Information Value Date Recorded Sex Assigned at Not on file Gender Identity Not on file Sexual Orientation Not on file documented as of this encounter Plan of Treatment Not on file documented as of this encounter Visit Diagnoses Not on filedocumented in this encounter Care Teams Breaster Relationship Specialty Start Date End Date Chris Abreu MD PCP - General Family Practice 04/27/17 documented as of this encounter
--- OUTSIDE RECORDS SUMMARY | 2023-10-14 17:36 | XMS_ITS | Encounter Summary ---
Author Organization [facility] Address [address] [place] [address] Care Team Providers Care Insulator Apprentice Name Role Phone Chris Abreu MD Primary Care Provider Unava ilable Encounter Details Date Type Department Care Team (Latest Contact Info) Description 08/16/1997 Orders Only David Whitfield [facility] [address] [place], [place] [phone] Social History Tobacco Use Types Packs/Day Years Used Date Smoking Tobacco: Never Assessed Sex and Gender Information Value Date Recorded Sex Assigned at Not on file Gender Identity Not on file Sexual Orientation Not on file documented as of this encounter Plan of Treatment Not on file documented as of this encounter Visit Diagnoses Not on filedocumented in this encounter Care Teams Insulator Apprentice Relationship Specialty Start Date End Date Chris Abreu MD PCP - General Family Practice 04/27/17 documented as of this encounter
--- OUTSIDE RECORDS SUMMARY | 2023-10-14 17:36 | XMS_ITS | Encounter Summary ---
Author Organization [facility] Address [address] [place] [address] Care Team Providers Care Automatic Riveting Machine Operator Name Role Phone Chris Abreu MD Primary Care Provider Unava ilable Encounter Details Date Type Department Care Team (Latest Contact Info) Description 03/10/1997 Orders Only Dino Pierce MD [address] [facility] [place], [place] [phone] Social History Tobacco Use Types Packs/Day Years Used Date Smoking Tobacco: Never Assessed Sex and Gender Information Value Date Recorded Sex Assigned at Not on file Gender Identity Not on file Sexual Orientation Not on file documented as of this encounter Plan of Treatment Not on file documented as of this encounter Visit Diagnoses Not on filedocumented in this encounter Care Teams Automatic Riveting Machine Operator Relationship Specialty Start Date End Date Chris Abreu MD PCP - General Family Practice 04/27/17 documented as of this encounter
--- OUTSIDE RECORDS SUMMARY | 2023-10-14 17:36 | XMS_ITS | Encounter Summary ---
Author Organization [facility] Address [address] [place] [address] Care Team Providers Care Swing Saw Operator Name Role Phone Chris Abreu MD Primary Care Provider Unava ilable Encounter Details Date Type Department Care Team (Latest Contact Info) Description 07/30/1997 Orders Only Zietz, E Social History Tobacco Use Types Packs/Day Years Used Date Smoking Tobacco: Never Assessed Sex and Gender Information Value Date Recorded Sex Assigned at Not on file Gender Identity Not on file Sexual Orientation Not on file documented as of this encounter Plan of Treatment Not on file documented as of this encounter Visit Diagnoses Not on filedocumented in this encounter Care Teams Swing Saw Operator Relationship Specialty Start Date End Date Chris Abreu MD PCP - General Family Practice 04/27/17 documented as of this encounter
--- OUTSIDE RECORDS SUMMARY | 2023-10-14 17:36 | XMS_ITS | Encounter Summary ---
Author Organization [facility] Address [address] [place] [address] Care Team Providers Care Blue Split Trimmer Name Role Phone Chris Abreu MD Primary Care Provider David ilvira Encounter Details Date Type Department Care Team (Latest Contact Info) Description 06/21/1997 Orders Only Amada Stubbs MD [address] [place] [address] Social History Tobacco Use Types Packs/Day Years Used Date Smoking Tobacco: Never Assessed Sex and Gender Information Value Date Recorded Sex Assigned at Not on file Gender Identity Not on file Sexual Orientation Not on file documented as of this encounter Plan of Treatment Not on file documented as of this encounter Visit Diagnoses Not on filedocumented in this encounter Care Teams Blue Split Trimmer Relationship Specialty Start Date End Date Chris Abreu MD PCP - General Family Practice 04/27/17 documented as of this encounter
--- OUTSIDE RECORDS SUMMARY | 2023-10-14 17:36 | XMS_ITS | Encounter Summary ---
Author Organization [facility] Address [address], [place] [address] Care Team Providers Care Data Warehouse Analyst Name Role Phone Chris Abreu MD Primary Care Provider David ilvira Encounter Details Date Type Department Care Team (Latest Contact Info) Description 07/22/1997 Orders Only Amada Stubbs MD [address] [place] [address] Social History Tobacco Use Types [...] on filedocumented in this encounter Care Teams Data Warehouse Analyst Relationship Specialty Start Date End Date Chris Abreu MD PCP - General Family Practice 04/27/17 documented as of this encounter
--- OUTSIDE RECORDS SUMMARY | 2023-10-14 17:36 | XMS_ITS | Encounter Summary ---
Author Organization [facility] Address [address], [place] [address] Care Team Providers Care Back Tufter Name Role Phone Chris Abreu MD Primary Care Provider David ilvira Encounter Details Date Type Department Care Team (Latest Contact Info) Description 01/01/1998 Orders Only Jimi Sharp MD [address] [place], [place] [address] Social History Tobacco Use Types Packs/Day Years [...] on filedocumented in this encounter Care Teams Back Tufter Relationship Specialty Start Date End Date Chris Abreu MD PCP - General Family Practice 04/27/17 documented as of this encounter
--- OUTSIDE RECORDS SUMMARY | 2023-10-14 17:36 | XMS_ITS | Encounter Summary ---
Author Organization [facility] Address [address] [place] [address] Care Team Providers Care Group Social Worker Name Role Phone Chris Abreu MD Primary Care Provider Unava ilable Encounter Details Date Type Department Care Team (Latest Contact Info) Description 02/16/1997 Orders Only Negro Thayer Social History Tobacco Use Types Packs/Day Years Used Date Smoking Tobacco: Never Assessed Sex and Gender Information Value Date Recorded Sex Assigned at Not on file Gender Identity Not on file Sexual Orientation Not on file documented as of this encounter Plan of Treatment Not on file documented as of this encounter Visit Diagnoses Not on filedocumented in this encounter Care Teams Group Social Worker Relationship Specialty Start Date End Date Chris Abreu MD PCP - General Family Practice 04/27/17 documented as of this encounter
--- OUTSIDE RECORDS SUMMARY | 2023-10-14 17:36 | XMS_ITS | Encounter Summary ---
Author Organization [facility] Address [address] [place] [address] Care Team Providers Care Bundle Tier Name Role Phone Chris Abreu MD Primary Care Provider Unava ilable Encounter Details Date Type Department Care Team (Latest Contact Info) Description 06/19/1997 Orders Only Dino Pierce MD [address] [facility] [place], [place] [phone] Social History Tobacco Use Types Packs/Day Years Used Date Smoking Tobacco: Never Assessed Sex and Gender Information Value Date Recorded Sex Assigned at Not on file Gender Identity Not on file Sexual Orientation Not on file documented as of this encounter Plan of Treatment Not on file documented as of this encounter Visit Diagnoses Not on filedocumented in this encounter Care Teams Bundle Tier Relationship Specialty Start Date End Date Chris Abreu MD PCP - General Family Practice 04/27/17 documented as of this encounter
--- OUTSIDE RECORDS SUMMARY | 2023-10-14 17:36 | XMS_ITS | Encounter Summary ---
Author Organization [facility] Address [address] [place] [address] Care Team Providers Care Director Of Acquisition Marketing Name Role Phone Chris Abreu MD Primary Care Provider Unava ilable Encounter Details Date Type Department Care Team (Latest Contact Info) Description 03/22/1998 Orders Only Patrick Wiggins MD [address] [place] [address] Social History Tobacco Use Types Packs/Day Years [...] on filedocumented in this encounter Care Teams Director Of Acquisition Marketing Relationship Specialty Start Date End Date Chris Abreu MD PCP - General Family Practice 04/27/17 documented as of this encounter
--- OUTSIDE RECORDS SUMMARY | 2023-10-14 17:36 | XMS_ITS | Encounter Summary ---
Author Organization [facility] Address [address], [place] [address] Care Team Providers Care Cnc Machinist 2Nd Shift Name Role Phone Crhis Abreu MD Primary Care Provider David ilvira Encounter Details Date Type Department Care Team (Latest Contact Info) Description 05/14/1997 Orders Only Amada Stubbs MD [address] [place] [address] Social History Tobacco Use Types [...] on filedocumented in this encounter Care Teams Cnc Machinist 2Nd Shift Relationship Specialty Start Date End Date Chris Abreu MD PCP - General Family Practice 04/27/17 documented as of this encounter
--- OUTSIDE RECORDS SUMMARY | 2023-10-14 17:36 | XMS_ITS | Encounter Summary ---
Author Organization [facility] Address [address] [place] [address] Care Team Providers Care Dural Mechanic Name Role Phone Chris Abreu MD Primary Care Provider Unava ilable Encounter Details Date Type Department Care Team (Latest Contact Info) Description 01/14/1998 Orders Only Patrick Wiggins MD [address] [place] [address] Social History Tobacco Use Types [...] on filedocumented in this encounter Care Teams Dural Mechanic Relationship Specialty Start Date End Date Chris Abreu MD PCP - General Family Practice 04/27/17 documented as of this encounter
--- OUTSIDE RECORDS SUMMARY | 2023-10-14 17:36 | XMS_ITS | Encounter Summary ---
Author Organization [facility] Address [address] [address] Care Team Providers Care Topstitcher Zigzag Name Role Phone Chris Abreu MD Primary Care Provider David ilvira Encounter Details Date Type Department Care Team (Latest Contact Info) Description 02/20/1997 Orders Only Amada Stubbs MD [address] [place] [address] Social History Tobacco Use Types [...] on filedocumented in this encounter Care Teams Topstitcher Zigzag Relationship Specialty Start Date End Date Chris Abreu MD PCP - General Family Practice 04/27/17 documented as of this encounter
--- OUTSIDE RECORDS SUMMARY | 2023-10-14 17:36 | XMS_ITS | Encounter Summary ---
Author Organization [facility] Address [address] [place] [address] Care Team Providers Care Welding Machine Operator Gas Name Role Phone Chris Abreu MD Primary Care Provider Unava ilable Encounter Details Date Type Department Care Team (Latest Contact Info) Description 02/14/1998 Orders Only Patrick Wiggins MD [address] [place] [address] Social History Tobacco Use Types [...] on filedocumented in this encounter Care Teams Welding Machine Operator Gas Relationship Specialty Start Date End Date Chris Abreu MD PCP - General Family Practice 04/27/17 documented as of this encounter
--- OUTSIDE RECORDS SUMMARY | 2023-10-14 17:36 | XMS_ITS | Encounter Summary ---
Author Organization [facility] Address [address] [place] [address] Care Team Providers Care Purchase Order Checker Name Role Phone Chris Abreu MD Primary Care Provider Unava ilable Encounter Details Date Type Department Care Team (Latest Contact Info) Description 07/03/1997 Orders Only Ankit Winkler MD [address] [place] [address] [id number] Social History Tobacco Use Types Packs/Day Years Used Date Smoking Tobacco: Never Assessed Sex and Gender Information Value Date Recorded Sex Assigned at Not on file Gender Identity Not on file Sexual Orientation Not on file documented as of this encounter Plan of Treatment Not on file documented as of this encounter Visit Diagnoses Not on filedocumented in this encounter Care Teams Purchase Order Checker Relationship Specialty Start Date End Date Chris Abreu MD PCP - General Family Practice 04/27/17 documented as of this encounter
--- OUTSIDE RECORDS SUMMARY | 2023-10-14 17:36 | XMS_ITS | Encounter Summary ---
Author Organization Replaced by [facility] Address [address] [place] [address] Care Team Providers Care Heating Unit Mechanic Name Role Phone Chris Abreu MD Primary Care Provider Unava ilable Encounter Details Date Type Department Care Team (Latest Contact Info) Description 03/18/1997 Orders Only Ankit Winkler MD [address] [place] [address] [id number] Social History Tobacco Use Types Packs/Day Years Used Date Smoking Tobacco: Never Assessed Sex and Gender Information Value Date Recorded Sex Assigned at Not on file Gender Identity Not on file Sexual Orientation Not on file documented as of this encounter Plan of Treatment Not on file documented as of this encounter Visit Diagnoses Not on filedocumented in this encounter Care Teams Heating Unit Mechanic Relationship Specialty Start Date End Date Chris Abreu MD PCP - General Family Practice 04/27/17 documented as of this encounter
--- OUTSIDE RECORDS SUMMARY | 2023-10-14 17:36 | XMS_ITS | Encounter Summary ---
Author Organization [facility] Address [address] [place] [address] Care Team Providers Care Development And Planning Engineer Name Role Phone Chris Abreu MD Primary Care Provider Unava ilable Encounter Details Date Type Department Care Team (Latest Contact Info) Description 12/11/1997 Orders Only Patrick Wiggins MD [address] [place] [address] Social History Tobacco Use Types [...] on filedocumented in this encounter Care Teams Development And Planning Engineer Relationship Specialty Start Date End Date Chris Abreu MD PCP - General Family Practice 04/27/17 documented as of this encounter
--- OUTSIDE RECORDS SUMMARY | 2023-10-14 17:36 | XMS_ITS | Encounter Summary ---
Author Organization [facility] Address [address] [place] [address] Care Team Providers Care Payment Processor Name Role Phone Chris Abreu MD Primary Care Provider Unava ilable Encounter Details Date Type Department Care Team (Latest Contact Info) Description 08/28/1997 Orders Only Baldo Arriaga MD Social History Tobacco Use Types Packs/Day Years Used Date Smoking Tobacco: Never Assessed Sex and Gender Information Value Date Recorded Sex Assigned at Not on file Gender Identity Not on file Sexual Orientation Not on file documented as of this encounter Plan of Treatment Not on file documented as of this encounter Visit Diagnoses Not on filedocumented in this encounter Care Teams Payment Processor Relationship Specialty Start Date End Date Chris Abreu MD PCP - General Family Practice 04/27/17 documented as of this encounter
--- OUTSIDE RECORDS SUMMARY | 2023-10-14 17:36 | XMS_ITS | Encounter Summary ---
Author Organization [facility] Address [address] [address] Care Team Providers Care Bench Patternmaker Metal Name Role Phone Chris Abreu MD Primary Care Provider David ilvira Encounter Details Date Type Department Care Team (Latest Contact Info) Description 12/01/1997 Orders Only Jimi Sharp MD [address] [place], [place] [address] Social History Tobacco Use Types Packs/Day Years [...] on filedocumented in this encounter Care Teams Bench Patternmaker Metal Relationship Specialty Start Date End Date Chris Abreu MD PCP - General Family Practice 04/27/17 documented as of this encounter
--- OUTSIDE RECORDS SUMMARY | 2023-10-14 17:36 | XMS_ITS | Encounter Summary ---
Author Organization [facility] Address [address] [address] Care Team Providers Care Miller First Name Role Phone Crhis Abreu MD Primary Care Provider David ilvira Encounter Details Date Type Department Care Team (Latest Contact Info) Description 03/05/1998 Orders Only Jimi Sharp MD [address] [place], [place] [phone] Social History Tobacco Use Types Packs/Day Years [...] on filedocumented in this encounter Care Teams Miller First Relationship Specialty Start Date End Date Chris Abreu MD PCP - General Family Practice 04/27/17 documented as of this encounter
--- OUTSIDE RECORDS SUMMARY | 2023-10-14 17:36 | XMS_ITS | Encounter Summary ---
Author Organization [facility] Address [address] [place] [address] Care Team Providers Care Cook Fish Eggs Name Role Phone Chris Abreu MD Primary Care Provider Unava ilable Encounter Details Date Type Department Care Team (Latest Contact Info) Description 12/19/1997 Orders Only Patrick Wiggins MD [address] [place] [address] Social History Tobacco Use Types [...] on filedocumented in this encounter Care Teams Cook Fish Eggs Relationship Specialty Start Date End Date Chris Abreu MD PCP - General Family Practice 04/27/17 documented as of this encounter
--- OUTSIDE RECORDS SUMMARY | 2023-10-14 17:36 | XMS_ITS | Encounter Summary ---
Author Organization [facility] Address [address] [place] [address] Care Team Providers Care Farm Machinery Assembler Name Role Phone Chris Abreu MD Primary Care Provider Unava ilable Encounter Details Date Type Department Care Team (Latest Contact Info) Description 10/06/1997 Orders Only Pee Aragon MD [address] [place], [place] [phone] Social History Tobacco Use Types Packs/Day Years [...] on filedocumented in this encounter Care Teams Farm Machinery Assembler Relationship Specialty Start Date End Date Chris Abreu MD PCP - General Family Practice 04/27/17 documented as of this encounter
--- OUTSIDE RECORDS SUMMARY | 2023-10-14 17:36 | XMS_ITS | Encounter Summary ---
Author Organization [facility] Address [address], [place] [address] Care Team Providers Care Data Communications Technician Name Role Phone Chris Abreu MD Primary Care Provider Unava ilable Encounter Details Date Type Department Care Team (Latest Contact Info) Description 08/22/1998 Orders Only Siva Oneal MD [address] [id number] Social History Tobacco Use Types Packs/Day Years [...] Procedure Name Priority Date/Time Associated Diagnosis Comments UNLISTED DX RADIOGRAPHIC PROCEDURE 08/22/1998 documented in this encounter Results * RADIOGRAPHIC UNSPECIFIED PROCEDURE (08/22/1998) Anatomical Region Laterality Modality Other Narrative 08/22/1998 CLINICAL DATA: ??PAIN INTERPRETATION: ??LEFT HIP, 08/22/98: ??Negative left hip. Siva Oneal MD Department of Radiology cc: ?Radiology BC ? Patrick Wiggins MD Siva Oneal MD [facility] documented in this encounter Visit Diagnoses Not on filedocumented in this encounter Care Teams Data Communications Technician Relationship Specialty Start Date End Date Chris Abreu MD PCP - General Family Practice 04/27/17 documented as of this encounter
--- OUTSIDE RECORDS SUMMARY | 2023-10-14 17:36 | XMS_ITS | Encounter Summary ---
Author Organization [facility] Address [address] [place] [address] Care Team Providers Care Destination Imagination Coordinator Name Role Phone Chris Abreu MD Primary Care Provider David ramires Encounter Details Date Type Department Care Team (Latest Contact Info) Description 09/11/1998 Orders Only Rah Weber [place] [id number] [place] [address] Social History Tobacco Use Types Packs/Day Years [...] Associated Diagnosis Comments UNLISTED DX RADIOGRAPHIC PROCEDURE 09/11/1998 documented in this encounter Results * RADIOGRAPHIC UNSPECIFIED PROCEDURE (09/11/1998) Anatomical Region Laterality Modality Other Narrative 09/11/1998 CLINICAL DATA: ??PAIN INTERPRETATION: ??RIGHT KNEE 09/11/98: Mild narrowing is present in the medial joint compartment. Just posterior to the knee joint there is a 12 millimeter calcification representing a joint body. The knee is otherwise normal. Rah South MD Department of Radiology cc: ?Radiology [facility] ? Rebel Briscoe MD Rah MARTINEZ documented in this encounter Visit Diagnoses Not on filedocumented in this encounter Care Teams Destination Imagination Coordinator Relationship Specialty Start Date End Date Chris Abreu MD PCP - General Family Practice 04/27/17 documented as of this encounter
--- OUTSIDE RECORDS SUMMARY | 2023-10-14 17:36 | XMS_ITS | Encounter Summary ---
Author Organization [facility] Address [address] [place] [address] Care Team Providers Care Supervisor Tree Fruit And Nut Farming Name Role Phone Chris Abreu MD Primary Care Provider Unava ilable Encounter Details Date Type Department Care Team (Latest Contact Info) Description 02/07/1998 Orders Only Patrick Wiggins MD [address] [place] [address] Social History Tobacco Use Types [...] on filedocumented in this encounter Care Teams Supervisor Tree Fruit And Nut Farming Relationship Specialty Start Date End Date Chris Abreu MD PCP - General Family Practice 04/27/17 documented as of this encounter
--- OUTSIDE RECORDS SUMMARY | 2023-10-14 17:36 | XMS_ITS | Encounter Summary ---
Author Organization Replaced by [facility] Address [address] [place] [address] Care Team Providers Care Paper Products Inspector Name Role Phone Chris Abreu MD Primary Care Provider Unava ilable Encounter Details Date Type Department Care Team (Latest Contact Info) Description 07/27/1997 Orders Only Baldo Arriaga MD Social History [...] on filedocumented in this encounter Care Teams Paper Products Inspector Relationship Specialty Start Date End Date Chris Abreu MD PCP - General Family Practice 04/27/17 documented as of this encounter
--- OUTSIDE RECORDS SUMMARY | 2023-10-14 17:36 | XMS_ITS | Encounter Summary ---
Author Organization [facility] Address [address] [place] [address] Care Team Providers Care Capital Markets Specialist Name Role Phone Chris Abreu MD Primary Care Provider Unava ilable Encounter Details Date Type Department Care Team (Latest Contact Info) Description 04/29/1997 Orders Only Ankit Winkler MD [address] [place] [address] [id number] Social History Tobacco Use Types Packs/Day Years Used Date Smoking Tobacco: Never Assessed Sex and Gender Information Value Date Recorded Sex Assigned at Not on file Gender Identity Not on file Sexual Orientation Not on file documented as of this encounter Plan of Treatment Not on file documented as of this encounter Visit Diagnoses Not on filedocumented in this encounter Care Teams Capital Markets Specialist Relationship Specialty Start Date End Date Chris Abreu MD PCP - General Family Practice 04/27/17 documented as of this encounter
--- OUTSIDE RECORDS SUMMARY | 2023-10-14 17:36 | XMS_ITS | Encounter Summary ---
Author Organization [facility] Address [address] [place] [address] Care Team Providers Care Sales Service Technician Name Role Phone Chris Abreu MD Primary Care Provider David ilable Encounter Details Date Type Department Care Team (Latest Contact Info) Description 08/23/1997 Orders Only Tono Dunbar Jr., MD [facility] [address] [place], [place] [address] Social History Tobacco Use Types Packs/Day Years Used Date Smoking Tobacco: Never Assessed Sex and Gender Information Value Date Recorded Sex Assigned at Not on file Gender Identity Not on file Sexual Orientation Not on file documented as of this encounter Plan of Treatment Not on file documented as of this encounter Visit Diagnoses Not on filedocumented in this encounter Care Teams Sales Service Technician Relationship Specialty Start Date End Date Chris Abreu MD PCP - General Family Practice 04/27/17 documented as of this encounter
--- OUTSIDE RECORDS SUMMARY | 2023-10-14 17:36 | XMS_ITS | Encounter Summary ---
Author Organization [facility] Address [address] [address] Care Team Providers Care Freezer Operator Name Role Phone Chris Abreu MD Primary Care Provider David ilvira Encounter Details Date Type Department Care Team (Latest Contact Info) Description 12/13/1997 Orders Only Jimi Sharp MD [address] [place], [place] [address] Social History Tobacco Use Types Packs/Day Years [...] on filedocumented in this encounter Care Teams Freezer Operator Relationship Specialty Start Date End Date Chris Abreu MD PCP - General Family Practice 04/27/17 documented as of this encounter
--- OUTSIDE RECORDS SUMMARY | 2023-10-14 17:36 | XMS_ITS | Encounter Summary ---
Author Organization [facility] Address [address], [place] [address] Care Team Providers Care Secretary Specialist Name Role Phone Chris Abreu MD Primary Care Provider Unava ilable Encounter Details Date Type Department Care Team (Latest Contact Info) Description 09/01/1997 Orders Only Oumou Oliver MD [address] [place] [address] Social History Tobacco Use Types Packs/Day Years Used Date Smoking Tobacco: Never Assessed Sex and Gender Information Value Date Recorded Sex Assigned at Not on file Gender Identity Not on file Sexual Orientation Not on file documented as of this encounter Plan of Treatment Not on file documented as of this encounter Visit Diagnoses Not on filedocumented in this encounter Care Teams Secretary Specialist Relationship Specialty Start Date End Date Chris Abreu MD PCP - General Family Practice 04/27/17 documented as of this encounter
--- OUTSIDE RECORDS SUMMARY | 2023-10-14 17:36 | XMS_ITS | Encounter Summary ---
Author Organization [facility] Address [address], [place] [address] Care Team Providers Care Examiner Rating Clerk Name Role Phone Chris Abreu MD Primary Care Provider David ilvira Encounter Details Date Type Department Care Team (Latest Contact Info) Description 10/18/1997 Orders Only Jimi Sharp MD [address] [place], [place] [address] Social History Tobacco Use Types Packs/Day Years [...] on filedocumented in this encounter Care Teams Examiner Rating Clerk Relationship Specialty Start Date End Date Chris Abreu MD PCP - General Family Practice 04/27/17 documented as of this encounter
--- OUTSIDE RECORDS SUMMARY | 2023-10-14 17:36 | XMS_ITS | Encounter Summary ---
Author Organization [facility] Address [address] [place] [address] Care Team Providers Care Tool Design Checker Name Role Phone Chris Abreu MD Primary Care Provider Unava ilable Encounter Details Date Type Department Care Team (Latest Contact Info) Description 02/16/1998 Orders Only Patrick Wiggins MD [address] [place] [address] Social History Tobacco Use Types [...] filedocumented in this encounter Care Teams Tool Design Checker Relationship Specialty Start Date End Date Chris Abreu MD PCP - General Family Practice 04/27/17 documented as of this encounter
--- OUTSIDE RECORDS SUMMARY | 2023-10-14 17:36 | XMS_ITS | Encounter Summary ---
Author Organization [facility] Address [address] [address] Care Team Providers Care Senior Editor Name Role Phone Chris Abreu MD Primary Care Provider David ilvira Encounter Details Date Type Department Care Team (Latest Contact Info) Description 02/21/1997 Orders Only Amada Stubbs MD [address] [place] [address] Social History Tobacco Use Types [...] on filedocumented in this encounter Care Teams Senior Editor Relationship Specialty Start Date End Date Chris Abreu MD PCP - General Family Practice 04/27/17 documented as of this encounter
--- OUTSIDE RECORDS SUMMARY | 2023-10-14 17:36 | XMS_ITS | Encounter Summary ---
Author Organization [facility] Address [address] [place] [address] Care Team Providers Care Xm1 Tank Driver Name Role Phone Chris Abreu MD Primary Care Provider Unava ilable Encounter Details Date Type Department Care Team (Latest Contact Info) Description 03/08/1998 Orders Only Patrick Wiggins MD [address] [place] [address] Social History Tobacco Use Types [...] on filedocumented in this encounter Care Teams Xm1 Tank Driver Relationship Specialty Start Date End Date Chris Abreu MD PCP - General Family Practice 04/27/17 documented as of this encounter
--- OUTSIDE RECORDS SUMMARY | 2023-10-14 17:36 | XMS_ITS | Encounter Summary ---
Author Organization [facility] Address [address] [place] [address] Care Team Providers Care Local Delivery Driver Name Role Phone Chris Abreu MD Primary Care Provider Unava ilable Encounter Details Date Type Department Care Team (Latest Contact Info) Description 02/26/1998 Orders Only Patrick Wiggins MD [address] [place] [address] Social History Tobacco Use Types [...] on filedocumented in this encounter Care Teams Local Delivery Driver Relationship Specialty Start Date End Date Chris Abreu MD PCP - General Family Practice 04/27/17 documented as of this encounter
--- OUTSIDE RECORDS SUMMARY | 2023-10-14 17:36 | XMS_ITS | Encounter Summary ---
Author Organization [facility] Address [address] [place] [address] Care Team Providers Care Taping Foreman Name Role Phone Chris Abreu MD Primary Care Provider Unava ilable Encounter Details Date Type Department Care Team (Latest Contact Info) Description 07/24/1997 Orders Only Ankit Winkler MD [address] [place] [id number] Social History Tobacco Use Types Packs/Day Years Used Date Smoking Tobacco: Never Assessed Sex and Gender Information Value Date Recorded Sex Assigned at Not on file Gender Identity Not on file Sexual Orientation Not on file documented as of this encounter Plan of Treatment Not on file documented as of this encounter Visit Diagnoses Not on filedocumented in this encounter Care Teams Taping Foreman Relationship Specialty Start Date End Date Chris Abreu MD PCP - General Family Practice 04/27/17 documented as of this encounter
--- OUTSIDE RECORDS SUMMARY | 2023-10-14 17:36 | XMS_ITS | Encounter Summary ---
Author Organization [facility] Address [address] [address] Care Team Providers Care Fountain Clerk Name Role Phone Chris Abreu MD Primary Care Provider David ilvira Encounter Details Date Type Department Care Team (Latest Contact Info) Description 11/22/1997 Orders Only Jimi Sharp MD [address] [place], [place] [address] Social History Tobacco Use Types Packs/Day Years [...] on filedocumented in this encounter Care Teams Fountain Clerk Relationship Specialty Start Date End Date Chris Abreu MD PCP - General Family Practice 04/27/17 documented as of this encounter
--- OUTSIDE RECORDS SUMMARY | 2023-10-14 17:37 | XMS_ITS | Encounter Summary ---
Author Organization [facility] Address [address] [address] Care Team Providers Care Psychiatric Cns Name Role Phone Chris Abreu MD Primary Care Provider Unava ilable Encounter Details Date Type Department Care Team (Latest Contact Info) Description 07/04/1996 Orders Only Aleksandr Diez MD [address] [place], [place] [id number] Social History Tobacco Use Types Packs/Day Years Used Date Smoking Tobacco: Never Assessed Sex and Gender Information Value Date Recorded Sex Assigned at Not on file Gender Identity Not on file Sexual Orientation Not on file documented as of this encounter Plan of Treatment Not on file documented as of this encounter Visit Diagnoses Not on filedocumented in this encounter Care Teams Psychiatric Cns Relationship Specialty Start Date End Date Chris Abreu MD PCP - General Family Practice 04/27/17 documented as of this encounter
--- OUTSIDE RECORDS SUMMARY | 2023-10-14 17:37 | XMS_ITS | Encounter Summary ---
Author Organization [facility] Address [address] [place] [address] Care Team Providers Care Chinese Instructor Name Role Phone Chris Abreu MD Primary Care Provider Unava ilable Encounter Details Date Type Department Care Team (Latest Contact Info) Description 02/11/1997 Orders Only Ankit Winkler MD [address] [place] [address] [id number] Social History Tobacco Use Types Packs/Day Years Used Date Smoking Tobacco: Never Assessed Sex and Gender Information Value Date Recorded Sex Assigned at Not on file Gender Identity Not on file Sexual Orientation Not on file documented as of this encounter Plan of Treatment Not on file documented as of this encounter Visit Diagnoses Not on filedocumented in this encounter Care Teams Chinese Instructor Relationship Specialty Start Date End Date Chris Abreu MD PCP - General Family Practice 04/27/17 documented as of this encounter
--- OUTSIDE RECORDS SUMMARY | 2023-10-14 17:37 | XMS_ITS | Encounter Summary ---
Author Organization [facility] Address [address] [place] [address] Care Team Providers Care Range Conservationist Name Role Phone Chris Abreu MD Primary Care Provider Unava ilable Encounter Details Date Type Department Care Team (Latest Contact Info) Description 11/06/1996 Orders Only Baldo Arriaga MD Social History [...] on filedocumented in this encounter Care Teams Range Conservationist Relationship Specialty Start Date End Date Chris Abreu MD PCP - General Family Practice 04/27/17 documented as of this encounter
--- OUTSIDE RECORDS SUMMARY | 2023-10-14 17:37 | XMS_ITS | Encounter Summary ---
Author Organization [facility] Address [address] [place] [address] Care Team Providers Care Gem Cutter Name Role Phone Chris Abreu MD Primary Care Provider Unava ilable Encounter Details Date Type Department Care Team (Latest Contact Info) Description 11/04/1996 Orders Only Domitila Pettit Social History Tobacco Use Types Packs/Day Years Used Date Smoking Tobacco: Never Assessed Sex and Gender Information Value Date Recorded Sex Assigned at Not on file Gender Identity Not on file Sexual Orientation Not on file documented as of this encounter Plan of Treatment Not on file documented as of this encounter Visit Diagnoses Not on filedocumented in this encounter Care Teams Gem Cutter Relationship Specialty Start Date End Date Chris Abreu MD PCP - General Family Practice 04/27/17 documented as of this encounter
--- OUTSIDE RECORDS SUMMARY | 2023-10-14 17:37 | XMS_ITS | Encounter Summary ---
Author Organization [facility] Address [address], [place] [address] Care Team Providers Care Strike On Machine Operator Name Role Phone Chris Abreu MD Primary Care Provider David ilvira Encounter Details Date Type Department Care Team (Latest Contact Info) Description 01/09/1997 Orders Only Amada Stubbs MD [address] [place] [address] Social History Tobacco Use Types [...] on filedocumented in this encounter Care Teams Strike On Machine Operator Relationship Specialty Start Date End Date Chris Abreu MD PCP - General Family Practice 04/27/17 documented as of this encounter
--- OUTSIDE RECORDS SUMMARY | 2023-10-14 17:37 | XMS_ITS | Encounter Summary ---
Author Organization [facility] Address [address] [place] [address] Care Team Providers Care Shot Blast Equipment Operator Name Role Phone Chris Abreu MD Primary Care Provider Unava ilable Encounter Details Date Type Department Care Team (Latest Contact Info) Description 10/17/1996 Orders Only Social History Tobacco Use Types Packs/Day Years Used Date Smoking Tobacco: Never Assessed Sex and Gender Information Value Date Recorded Sex Assigned at Not on file Gender Identity Not on file Sexual Orientation Not on file documented as of this encounter Plan of Treatment Not on file documented as of this encounter Visit Diagnoses Not on filedocumented in this encounter Care Teams Shot Blast Equipment Operator Relationship Specialty Start Date End Date Chris Abreu MD PCP - General Family Practice 04/27/17 documented as of this encounter
--- OUTSIDE RECORDS SUMMARY | 2023-10-14 17:37 | XMS_ITS | Encounter Summary ---
Author Organization [facility] of [facility] Address [address] [place] [address] Care Team Providers Care Television Repair Teacher Name Role Phone Chris Abreu MD Primary Care Provider Unava ilable Encounter Details Date Type Department Care Team (Latest Contact Info) Description 09/02/1996 Orders Only Dino Pierce MD [address] [facility] [place], [place] [phone] Social History Tobacco Use Types Packs/Day Years Used Date Smoking Tobacco: Never Assessed Sex and Gender Information Value Date Recorded Sex Assigned at Not on file Gender Identity Not on file Sexual Orientation Not on file documented as of this encounter Plan of Treatment Not on file documented as of this encounter Visit Diagnoses Not on filedocumented in this encounter Care Teams Television Repair Teacher Relationship Specialty Start Date End Date Chris Abreu MD PCP - General Family Practice 04/27/17 documented as of this encounter
--- OUTSIDE RECORDS SUMMARY | 2023-10-14 17:37 | XMS_ITS | Encounter Summary ---
Author Organization [facility] Address [address] [place] [address] Care Team Providers Care Veterinarian Helper Name Role Phone Chris Abreu MD Primary Care Provider Unava ilable Encounter Details Date Type Department Care Team (Latest Contact Info) Description 12/07/1996 Orders Only Ankit Winkler MD [address] [place] [address] [phone] Social History Tobacco Use Types Packs/Day Years Used Date Smoking Tobacco: Never Assessed Sex and Gender Information Value Date Recorded Sex Assigned at Not on file Gender Identity Not on file Sexual Orientation Not on file documented as of this encounter Plan of Treatment Not on file documented as of this encounter Visit Diagnoses Not on filedocumented in this encounter Care Teams Veterinarian Helper Relationship Specialty Start Date End Date Chris Abreu MD PCP - General Family Practice 04/27/17 documented as of this encounter
--- OUTSIDE RECORDS SUMMARY | 2023-10-14 17:37 | XMS_ITS | Encounter Summary ---
Author Organization [facility] Address [address], [place] [address] Care Team Providers Care Human Resources Supervisor Name Role Phone Chris Abreu MD Primary Care Provider David ilvira Encounter Details Date Type Department Care Team (Latest Contact Info) Description 01/19/1997 Orders Only Amada Stubbs MD [address] [place] [address] Social History Tobacco Use Types [...] on filedocumented in this encounter Care Teams Human Resources Supervisor Relationship Specialty Start Date End Date Chris Abreu MD PCP - General Family Practice 04/27/17 documented as of this encounter
--- OUTSIDE RECORDS SUMMARY | 2023-10-14 17:37 | XMS_ITS | Encounter Summary ---
Author Organization [facility] Address [address], [place] [address] Care Team Providers Care Hook Up Name Role Phone Chris Abreu MD Primary Care Provider David ilvira Encounter Details Date Type Department Care Team (Latest Contact Info) Description 01/27/1997 Orders Only Amada Stubbs MD [address] [place] [address] Social History Tobacco Use Types [...] on filedocumented in this encounter Care Teams Hook Up Relationship Specialty Start Date End Date Chris Abreu MD PCP - General Family Practice 04/27/17 documented as of this encounter
--- OUTSIDE RECORDS SUMMARY | 2023-10-14 17:37 | XMS_ITS | Encounter Summary ---
Author Organization [facility] Address [address] [address] Care Team Providers Care Men'S Swim Coach Name Role Phone Chris Abreu MD Primary Care Provider Unava ilable Encounter Details Date Type Department Care Team (Latest Contact Info) Description 01/26/1997 Orders Only [employer], [place] [address] Social History Tobacco Use Types Packs/Day Years Used Date Smoking Tobacco: Never Assessed Sex and Gender Information Value Date Recorded Sex Assigned at Not on file Gender Identity Not on file Sexual Orientation Not on file documented as of this encounter Plan of Treatment Not on file documented as of this encounter Visit Diagnoses Not on filedocumented in this encounter Care Teams Men'S Swim Coach Relationship Specialty Start Date End Date Chris Abreu MD PCP - General Family Practice 04/27/17 documented as of this encounter
--- OUTSIDE RECORDS SUMMARY | 2023-10-14 17:37 | XMS_ITS | Encounter Summary ---
Author Organization [facility] Address [address] [address] Care Team Providers Care Fish Frog Or Oyster Farmer Name Role Phone Chris Abreu MD Primary Care Provider David ilvira Encounter Details Date Type Department Care Team (Latest Contact Info) Description 07/29/1996 Orders Only Amada Stubbs MD [address] [place] [address] Social History Tobacco Use Types [...] on filedocumented in this encounter Care Teams Fish Frog Or Oyster Farmer Relationship Specialty Start Date End Date Chris Abreu MD PCP - General Family Practice 04/27/17 documented as of this encounter
--- OUTSIDE RECORDS SUMMARY | 2023-10-14 17:37 | XMS_ITS | Encounter Summary ---
Author Organization Replaced by [facility] Address [address], [place] [address] Care Team Providers Care Accredited Farm Manager Name Role Phone Chris Abreu MD Primary Care Provider David ilvira Encounter Details Date Type Department Care Team (Latest Contact Info) Description 08/24/1996 Orders Only Amada Stubbs MD [address] [place] [address] Social History Tobacco Use Types [...] on filedocumented in this encounter Care Teams Accredited Farm Manager Relationship Specialty Start Date End Date Chris Abreu MD PCP - General Family Practice 04/27/17 documented as of this encounter
--- OUTSIDE RECORDS SUMMARY | 2023-10-14 17:37 | XMS_ITS | Encounter Summary ---
Author Organization [facility] Address [address] [place] [address] Care Team Providers Care Design Director Name Role Phone Chris Abreu MD Primary Care Provider Unava ilable Encounter Details Date Type Department Care Team (Latest Contact Info) Description 10/27/1996 Orders Only Ankit Winkler MD [address] [place] [address] [phone] Social History Tobacco Use Types Packs/Day Years Used Date Smoking Tobacco: Never Assessed Sex and Gender Information Value Date Recorded Sex Assigned at Not on file Gender Identity Not on file Sexual Orientation Not on file documented as of this encounter Plan of Treatment Not on file documented as of this encounter Visit Diagnoses Not on filedocumented in this encounter Care Teams Design Director Relationship Specialty Start Date End Date Chris Abreu MD PCP - General Family Practice 04/27/17 documented as of this encounter
--- OUTSIDE RECORDS SUMMARY | 2023-10-14 17:37 | XMS_ITS | Encounter Summary ---
Author Organization [facility] Address [address] [address] Care Team Providers Care Bolting Machine Operator Name Role Phone Chris Abreu MD Primary Care Provider David ilvira Encounter Details Date Type Department Care Team (Latest Contact Info) Description 10/31/1996 Orders Only Galina Frank, CASE SEALER, CRANE OILER [address] [place] [address] Social History Tobacco Use Types Packs/Day Years Used Date Smoking Tobacco: Never Assessed Sex and Gender Information Value Date Recorded Sex Assigned at Not on file Gender Identity Not on file Sexual Orientation Not on file documented as of this encounter Plan of Treatment Not on file documented as of this encounter Visit Diagnoses Not on filedocumented in this encounter Care Teams Bolting Machine Operator Relationship Specialty Start Date End Date Chris Abreu MD PCP - General Family Practice 04/27/17 documented as of this encounter
--- OUTSIDE RECORDS SUMMARY | 2023-10-14 17:37 | XMS_ITS | Encounter Summary ---
Author Organization [facility] Address [address] [address] Care Team Providers Care Loss Prevention Leader Name Role Phone Chris Abreu MD Primary Care Provider David ilvira Encounter Details Date Type Department Care Team (Latest Contact Info) Description 02/10/1997 Orders Only Amada Stubbs MD [address] [place] [address] Social History Tobacco Use Types [...] on filedocumented in this encounter Care Teams Loss Prevention Leader Relationship Specialty Start Date End Date Chris Abreu MD PCP - General Family Practice 04/27/17 documented as of this encounter
--- OUTSIDE RECORDS SUMMARY | 2023-10-14 17:37 | XMS_ITS | Encounter Summary ---
Author Organization [facility] Address [address], [place] [address] Care Team Providers Care Farmworker Grain Name Role Phone Chris Abreu MD Primary Care Provider David ilvira Encounter Details Date Type Department Care Team (Latest Contact Info) Description 12/16/1996 Orders Only Amada Stubbs MD [address] [place] [address] Social History Tobacco Use Types [...] on filedocumented in this encounter Care Teams Farmworker Grain Relationship Specialty Start Date End Date Chris Abreu MD PCP - General Family Practice 04/27/17 documented as of this encounter
--- OUTSIDE RECORDS SUMMARY | 2023-10-14 17:37 | XMS_ITS | Encounter Summary ---
Author Organization [facility] Address [address] [place] [address] Care Team Providers Care Tunnel Mucker Name Role Phone Chris Abreu MD Primary Care Provider Unava ilable Encounter Details Date Type Department Care Team (Latest Contact Info) Description 09/20/1996 Orders Only Ankit Winkler MD [address] [place] [address] [id number] Social History Tobacco Use Types Packs/Day Years Used Date Smoking Tobacco: Never Assessed Sex and Gender Information Value Date Recorded Sex Assigned at Not on file Gender Identity Not on file Sexual Orientation Not on file documented as of this encounter Plan of Treatment Not on file documented as of this encounter Visit Diagnoses Not on filedocumented in this encounter Care Teams Tunnel Mucker Relationship Specialty Start Date End Date Chris Abreu MD PCP - General Family Practice 04/27/17 documented as of this encounter
--- OUTSIDE RECORDS SUMMARY | 2023-10-14 17:37 | XMS_ITS | Encounter Summary ---
Author Organization [facility] Address [address] [place] [address] Care Team Providers Care Range Feeder Name Role Phone Chris Abreu MD Primary Care Provider Unava ilable Encounter Details Date Type Department Care Team (Latest Contact Info) Description 09/05/1996 Orders Only Baldo Arriaga MD Social History [...] filedocumented in this encounter Care Teams Range Feeder Relationship Specialty Start Date End Date Chris Abreu MD PCP - General Family Practice 04/27/17 documented as of this encounter
--- OUTSIDE RECORDS SUMMARY | 2023-10-14 17:37 | XMS_ITS | Encounter Summary ---
Author Organization [facility] Address [address] [place] [address] Care Team Providers Care Stucco Plasterer Name Role Phone Chris Abreu MD Primary Care Provider Unava ilable Encounter Details Date Type Department Care Team (Latest Contact Info) Description 09/06/1996 Orders Only Baldo Arriaga MD Social History [...] on filedocumented in this encounter Care Teams Stucco Plasterer Relationship Specialty Start Date End Date Chris Abreu MD PCP - General Family Practice 04/27/17 documented as of this encounter
--- OUTSIDE RECORDS SUMMARY | 2023-10-14 17:37 | XMS_ITS | Encounter Summary ---
Author Organization [facility] Address [address] [place] [address] Care Team Providers Care Theater Projectionist Name Role Phone Chris Abreu MD Primary Care Provider Unava ilable Encounter Details Date Type Department Care Team (Latest Contact Info) Description 08/31/1996 Orders Only Social History Tobacco Use Types [...] on filedocumented in this encounter Care Teams Theater Projectionist Relationship Specialty Start Date End Date Chris Abreu MD PCP - General Family Practice 04/27/17 documented as of this encounter
--- OUTSIDE RECORDS SUMMARY | 2023-10-14 17:38 | XMS_ITS | Encounter Summary ---
Author Organization [facility] Address [address] [address] Care Team Providers Care Barrel Loader And Cleaner Name Role Phone Chris Abreu MD Primary Care Provider Unajack ilable Encounter Details Date Type Department Care Team (Latest Contact Info) Description 06/14/1995 Orders Only Galina Frank, CMA OR LPN, COLOR TELEVISION CONSOLE MONITOR [address] [place] [address] Social History Tobacco Use Types Packs/Day Years Used Date Smoking Tobacco: Never Assessed Sex and Gender Information Value Date Recorded Sex Assigned at Not on file Gender Identity Not on file Sexual Orientation Not on file documented as of this encounter Plan of Treatment Not on file documented as of this encounter Visit Diagnoses Not on filedocumented in this encounter Care Teams Barrel Loader And Cleaner Relationship Specialty Start Date End Date Chris Abreu MD PCP - General Family Practice 04/27/17 documented as of this encounter
--- OUTSIDE RECORDS SUMMARY | 2023-10-14 17:38 | XMS_ITS | Encounter Summary ---
Author Organization [facility] Address [address] [place] [address] Care Team Providers Care Repairer Evaporator Name Role Phone Chris Abreu MD Primary Care Provider Unava ilable Encounter Details Date Type Department Care Team (Latest Contact Info) Description 03/31/1995 Orders Only Dino Pierce MD [address] [facility] [place], [place] [address] Social History Tobacco Use Types Packs/Day Years Used Date Smoking Tobacco: Never Assessed Sex and Gender Information Value Date Recorded Sex Assigned at Not on file Gender Identity Not on file Sexual Orientation Not on file documented as of this encounter Plan of Treatment Not on file documented as of this encounter Visit Diagnoses Not on filedocumented in this encounter Care Teams Repairer Evaporator Relationship Specialty Start Date End Date Chris Abreu MD PCP - General Family Practice 04/27/17 documented as of this encounter
--- OUTSIDE RECORDS SUMMARY | 2023-10-14 17:38 | XMS_ITS | Encounter Summary ---
Author Organization [facility] Address [address], [place] [address] Care Team Providers Care Lift Electrician Name Role Phone Chris Abreu MD Primary Care Provider David ilvira Encounter Details Date Type Department Care Team (Latest Contact Info) Description 08/02/1995 Orders Only Amada Stubbs MD [address] [place] [address] Social History Tobacco Use Types [...] on filedocumented in this encounter Care Teams Lift Electrician Relationship Specialty Start Date End Date Chris Abreu MD PCP - General Family Practice 04/27/17 documented as of this encounter
--- OUTSIDE RECORDS SUMMARY | 2023-10-14 17:38 | XMS_ITS | Encounter Summary ---
Author Organization [facility] Address [address], [place] [address] Care Team Providers Care Consultant Rn Name Role Phone Chris Abreu MD Primary Care Provider David ilvira Encounter Details Date Type Department Care Team (Latest Contact Info) Description 09/04/1995 Orders Only Amada Stubbs MD [address] [place] [address] Social History Tobacco Use Types [...] on filedocumented in this encounter Care Teams Consultant Rn Relationship Specialty Start Date End Date Chris Abreu MD PCP - General Family Practice 04/27/17 documented as of this encounter
--- OUTSIDE RECORDS SUMMARY | 2023-10-14 17:38 | XMS_ITS | Encounter Summary ---
Author Organization [facility] Address [address], [place] [address] Care Team Providers Care Pet House Sitter Name Role Phone Chris Abreu MD Primary Care Provider David ilvira Encounter Details Date Type Department Care Team (Latest Contact Info) Description 04/13/1995 Orders Only Amada Stubbs MD [address] [place] [address] Social History Tobacco Use [...] on filedocumented in this encounter Care Teams Pet House Sitter Relationship Specialty Start Date End Date Chris Abreu MD PCP - General Family Practice 04/27/17 documented as of this encounter
--- OUTSIDE RECORDS SUMMARY | 2023-10-14 17:38 | XMS_ITS | Encounter Summary ---
Author Organization [facility] Address [address] [address] Care Team Providers Care Hydrology Teacher Name Role Phone Chris Abreu MD Primary Care Provider Unajack ilvira Encounter Details Date Type Department Care Team (Latest Contact Info) Description 09/17/1995 Orders Only Amada Stubbs MD [address] [place] [address] Social History Tobacco Use Types [...] on filedocumented in this encounter Care Teams Hydrology Teacher Relationship Specialty Start Date End Date Chris Abreu MD PCP - General Family Practice 04/27/17 documented as of this encounter
--- OUTSIDE RECORDS SUMMARY | 2023-10-14 17:38 | XMS_ITS | Encounter Summary ---
Author Organization [facility] Address [address] [place] [address] Care Team Providers Care Chick Sexer Name Role Phone Chris Abreu MD Primary Care Provider Unava ilable Encounter Details Date Type Department Care Team (Latest Contact Info) Description 04/27/1995 Orders Only Ankit Winkler MD [address] [place] [address] [id number] Social History Tobacco Use Types Packs/Day Years Used Date Smoking Tobacco: Never Assessed Sex and Gender Information Value Date Recorded Sex Assigned at Not on file Gender Identity Not on file Sexual Orientation Not on file documented as of this encounter Plan of Treatment Not on file documented as of this encounter Visit Diagnoses Not on filedocumented in this encounter Care Teams Chick Sexer Relationship Specialty Start Date End Date Chris Abreu MD PCP - General Family Practice 04/27/17 documented as of this encounter
--- OUTSIDE RECORDS SUMMARY | 2023-10-14 17:38 | XMS_ITS | Encounter Summary ---
Author Organization [facility] Address [address] [place] [address] Care Team Providers Care Animal Care Technician Name Role Phone Chris Abreu MD Primary Care Provider Unava ilable Encounter Details Date Type Department Care Team (Latest Contact Info) Description 05/14/1996 Orders Only Ankit Winkler MD [address] [place] [address] [id number] Social History Tobacco Use Types Packs/Day Years Used Date Smoking Tobacco: Never Assessed Sex and Gender Information Value Date Recorded Sex Assigned at Not on file Gender Identity Not on file Sexual Orientation Not on file documented as of this encounter Plan of Treatment Not on file documented as of this encounter Visit Diagnoses Not on filedocumented in this encounter Care Teams Animal Care Technician Relationship Specialty Start Date End Date Chris Abreu MD PCP - General Family Practice 04/27/17 documented as of this encounter
--- OUTSIDE RECORDS SUMMARY | 2023-10-14 17:38 | XMS_ITS | Encounter Summary ---
Author Organization [facility] Address [address], [place] [address] Care Team Providers Care Motor Assembly Supervisor Name Role Phone Chris Abreu MD Primary Care Provider Unava ilable Encounter Details Date Type Department Care Team (Latest Contact Info) Description 07/01/1995 Orders Only Antione Nichols(Christian) Social History Tobacco Use Types Packs/Day Years Used Date Smoking Tobacco: Never Assessed Sex and Gender Information Value Date Recorded Sex Assigned at Not on file Gender Identity Not on file Sexual Orientation Not on file documented as of this encounter Plan of Treatment Not on file documented as of this encounter Visit Diagnoses Not on filedocumented in this encounter Care Teams Motor Assembly Supervisor Relationship Specialty Start Date End Date Chris Abreu MD PCP - General Family Practice 04/27/17 documented as of this encounter
--- OUTSIDE RECORDS SUMMARY | 2023-10-14 17:38 | XMS_ITS | Clinical Summary ---
Author Organization [facility] Address [address] [place] [address] Care Team Providers Care Mine Safety Engineer Name Role Phone MistryJesus cavazos Primary Care Provider [phone] Allergies Active Allergy Reactions Criticality Noted Date Comments Codeine Sulfate 10/08/2011 But tolerates vicodin ok Demerol 10/08/2011 Latex Rash Low 10/08/2011 Metronidazole Diarrhea 07/09/2015 Violent diarrhea Gabapentin 05/22/2014 Tegaderm Transparent Dressing (Informational Only) Rash Low 05/24/2014 Diazepam 05/22/2014 Medications Medication Sig Dispensed Refills Start Date End Date Status Multiple Vitamins-Minerals (MULTIVITAMIN & MINERAL PO) Take 1 tablet by mouth daily Active TRAZODONE HCL PO Take 50 mg by mouth At Bedtime Active FLUoxetine HCl (PROZAC PO) Take 20 mg by mouth daily Active lidocaine (LIDODERM) 5 % patch Place 1 patch onto the skin daily as needed 12 hours on 12 hours off. Active ACETAMINOPHEN PO Take 1,000 mg by mouth 2 times daily as needed for pain Active AMITRIPTYLINE HCL PO Take 20 mg by mouth At Bedtime Active HYDROcodone-acetami nophen (NORCO) 5-325 MG per tablet Take 1 tablet by mouth 2 times daily as needed for moderate to severe pain ((May take in afternoon and middle of the night if needed in addition to bedtime dose)) Active METFORMIN HCL PO Take 1,000 mg by mouth 2 times daily (with meals) (Takes 2 x 500mg tablets for a total dose of 1000mg at a time) Active triamcinolone (KENALOG) 0.1 % cream Apply 1 g topically 3 times daily as needed (eczema) Active dulaglutide (TRULICITY) 0.75 MG/0.5ML pen Inject 0.75 mg Subcutaneous every 7 days Active diclofenac (VOLTAREN) 1 % GEL topical gel Place onto the skin 4 times daily as needed for moderate pain To thumb and shoulder Active LORazepam (ATIVAN) 1 MG tablet Take 1 tablet (1 mg) by mouth every 8 hours as needed for anxiety 15 tablet 05/19/2017 Active spironolactone (ALDACTONE) 25 MG tabletIndications:C oronary artery disease involving [place] coronary artery of [place] heart without angina pectoris Take 0.5 tablets (12.5 mg) by mouth daily 45 tablet 2 10/13/2017 Active atorvastatin (LIPITOR) 40 MG tabletIndications:C oronary artery disease involving [place] coronary artery of [place] heart without angina pectoris Take 1 tablet (40 mg) by mouth daily 90 tablet 12/24/2018 Active nitroGLYcerin (NITROSTAT) 0.4 MG sublingual tabletIndications:S T elevation myocardial infarction involving left circumflex coronary artery (H) Place 1 tablet (0.4 mg) under the tongue every 5 minutes as needed for chest pain if you are still having symptoms after 3 doses call 911. 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 PT no longer part of [facility]. Do not call with any follow up! 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 pectoris Overview: cardiac cath 2016: CARO to RCA and CARO to OM Ischemic cardiomyopathy Overview: s/p Bi-V pacemaker implanted 06/2016 Mitral regurgitation Left bundle branch block Meniere disease Arthritis GERD (gastroesophageal reflux disease) Family History Medical History Relation Comments Heart Disease Father Alzheimer Disease Mother Relation Status Comments Father Mother Social History Tobacco Use Types Packs/Day Years Used Date Smoking Tobacco: Never Smokeless Tobacco: Never Alcohol Use Standard Drinks/Week Comments No 0 (1 standard drink = 0.6 oz pur e alcohol) Adolescent Education Answer Date Record ed Getting School Help Needed Not on file 01/13 Sex and Gender Information Value Date Recorded Sex Assigned at Not on file Gender Identity Not on file Sexual Orientation Not on file Last Filed Vital Signs Vital Sign Reading Time Taken Comments Blood Pressure 120/80 12/24/2020 12:57 PM CDT Pulse 81 12/24/2020 12:57 PM CDT Temperature 36.6 ??C (97.9 ??F) 05/19/2017 4:14 PM CS T Respiratory Rate 20 05/19/2017 4:14 PM AIRLINE MANAGER Oxygen Saturation 95% 12/24/2020 12:57 PM CDT Inhaled Oxygen Concentration - - Weight 95.3 kg (210 lb) 12/24/2020 12:57 PM CDT Height 157.5 cm (5' 2) 12/24/2020 12:57 PM CDT Body Mass Index 38.41 12/24/2020 12:57 PM CDT Plan of Treatment Health Maintenance Due Date Last Done Comments ANNUAL REVIEW OF HM ORDERS 1941 DEXA 1941 DIABETIC FOOT EXAM 1941 MICROALBUMIN 1941 ZOSTER IMMUNIZATION (1 of 2) 06/28/1991 RSV VACCINE ( & 60+) (1 - 1-dose 60+ series) 2001 FALL RISK ASSESSMENT 2006 MEDICARE ANNUAL WELLNESS VISIT 2006 09/18/1998, 10/12/1996 PHQ-9 03/24/2013 09/22/2012, 06/17/2012 ADVANCE CARE PLANNING 09/22/2017 09/22/2012 (Decline d) A1C 11/04/2017 05/07/2017, 05/05/2016, 01/15/2016, Additional history exists Pneumococcal Vaccine: 65+ Years (3 of 3 - PPSV23 or PCV20) 12/03/2018 12/03/2017, 01/09/2005 EYE EXAM 08/10/2021 08/10/2020 BMP 08/20/2021 08/20/2020, 04/30, 06/08/2018, Additional history exists LIPID 12/24/2021 12/24/2020, 05/28, 05/28/2016, Additional history exists DTAP/TDAP/TD IMMUNIZATION (3 - Td or Tdap) 01/07/2022 01/08/2012, 08/27/2005, 03/29/1995 COVID-19 Vaccine ( season) 2022 02/28/2021, 06/20/2020, 05/23/2020 INFLUENZA VACCINE (#1) 2023 , 01/21/2021, 03/21/2020, Additional history exists DEPRESSION ACTION PLAN Completed 09/22/2012 HPV IMMUNIZATION Aged Out No longer e ligible based on patient's age to complete this topic IPV IMMUNIZATION Aged Out No longer e ligible based on patient's age to complete this topic MENINGITIS IMMUNIZATION Aged Out No l onger eligible based on patient's age to complete this topic RSV MONOCLONAL ANTIBODY Aged Out No l onger eligible based on patient's age to complete this topic Medical Devices Implanted Type Area Substance Abuse Therapist Device Identifier Shelf Expiration Date Model / Serial / Lot Right Atrial Lead-07/25/2016 Implanted:07/25 by Francisco J King MD (Quantity not on file) [employer] [address] 7740-45 / [id number] / Right Ventricular Lead-07/25/2016 Implanted:07/25 by Francisco J King MD (Quantity not on file) [employer] 7741-42 / [id number] / Left Ventricular Lead-07/25/2016 Implanted:07/25 by Francisco J King MD (Quantity not on file) [employer] 4674-86 / [id number] / Pacemaker-Eze Sci Implanted:07/25 by Francisco J King MD (Quantity not on file) Pacemaker [employer] VALITUDE X4 MIDDLE SCHOOL COACH-P U128 / [id number] / Bone Cement Palacos [id number] Implanted:Qty: 2 on 05/24/2014 by Chris Wang MD at [facility] Right: Knee [employer] 10/27/2018-1112-140 -01 / / [id number] Imp Plate Tibial Zim Nexgen Size 4 Implanted:Qty: 1 on 05/24/2014 by Chris Wang MD at [facility] Right: Knee [employer] 03/29/2024-5980-037 -02 / / [id number] Imp Comp Femoral Zim Size D Rt [id number] Implanted:Qty: 1 on 05/24/2014 by Chris Wang MD at [facility] Right: Knee [employer] 12/28/2023-5964-014 -52 / / [id number] Imp Comp Patella Zim Nexgen 8.5x32mm Implanted:Qty: 1 on 05/24/2014 by Chris Wang MD at [facility] Right: Knee [employer] 01/27/2022-5972-065 -32 / / [id number] Imp Art Surface Zim Lps Flex Cd 3-4 12mm [id number] Implanted:Qty: 1 on 05/24/2014 by Chris Wang MD at [facility] Right: Knee [employer] 09/26/2018-5962-030 -12 / / [id number] Procedures Procedure Name Priority Date/Time Associated Diagnosis Comments LIPID PROFILE Routine 12/24/2020 11:07 AM CDT Coronary artery disease involving chalkyitsik coronary artery of chalky[place] heart without angina pectoris BASIC METABOLIC PANEL Routine 08/20/2020 1:39 PM CDT Acute on chronic heart failure with preserved ejection fraction (HFpEF) (H) HEMOGLOBIN A1C Routine 05/07/2017 8:25 AM AIRLINE MANAGER from Last 3 Months or Most Recently Relevant to Health Maintenance Results * (ABNORMAL) Lipid Profile (12/24/2020 11:07 AM CDT) [facility] Cholesterol 121 <200 mg/dL 12/24/2020 11:44 AM CDT LABORATORY Triglycerides 196(H) <150 mg/dL 12/24/2020 11:44 AM CDT LABORATORY Direct Measure HDL 40(L) >=50 mg/dL 12/24/2020 11:44 AM CDT LABORATORY LDL Cholesterol Calculated 42 <=100 mg/dL 12/24/2020 11:44 AM CDT LABORATORY Non HDL Cholesterol 81 <130 mg/dL 12/24/2020 11:44 AM CDT LABORATORY Patient Fasting > 8hrs? No 12/24/2020 11:44 AM CDT LABORATORY Blood STRUCTURE OF RIGHT UPPER LIMB / Unknown Venipuncture / Unknown 12/24/2020 11:07 AM CDT 12/24/2020 11:07 AM CDT Narrative LABORATORY - 12/24/2020 11:44 AM CDT Cholesterol Desirable: ??<200 mg/dL Triglycerides Normal: ??Less than 150 mg/dL Borderline High: ??150-199 mg/dL High: ??200-499 mg/dL Very High: ??Greater than or equal to 500 mg/dL Direct Measure HDL Female: ??Greater than or equal to 50 mg/dL Male: ??Greater than or equal to 40 mg/dL LDL Cholesterol Desirable: ??<100mg/dL Above Desirable: ??100-129 mg/dL Borderline High: ??130-159 mg/dL High: ??160-189 mg/dL Very High: ??>= 190 mg/dL Non HDL Cholesterol Desirable: ??130 mg/dL Above Desirable: ??130-159 mg/dL Borderline High: ??160-189 mg/dL High: ??190-219 mg/dL Very High: ??Greater than or equal to 220 mg/dL Crystal Abraham PA-C LAB - BLOOD ORD ERABLES LABORATORY [facility] [address], [address] [place] [address], [place] [phone] * (ABNORMAL) Basic metabolic panel (08/20/2020 1:39 PM CDT) Sodium 136 133 - 144 mmol/L 08/20/2020 2:33 PM CDT [facility] Potassium 4.2 3.4 - 5.3 mmol/L 08/20/2020 2:33 PM T [facility] Chloride 101 94 - 109 mmol/L 08/20/2020 2:33 PM T [facility] Carbon Dioxide 29 20 - 32 mmol/L 08/20/2020 2:41 PM [facility] Anion Gap 6 3 - 14 mmol/L 08/20/2020 2:41 PM [facility] Glucose 183(H) 70 - 99 mg/dL 08/20/2020 2:41 PM [facility] Urea Nitrogen 22 7 - 30 mg/dL 08/20/2020 2:41 PM [facility] Creatinine 0.88 0.52 - 1.04 mg/dL 08/20/2020 2:41 PM [facility] GFR Estimate 63 >60 mL/min/{1. 73_m2} 08/20/2020 2:41 PM [facility] Comment: Non GFR Calc Starting 03/16/2018, serum creatinine based estimated GFR (eGFR) will be calculated using the Chronic Kidney Disease Epidemiology Collaboration (CKD-EPI) equation. GFR Estimate If Black 73 >60 mL/min/{1. 73_m2} 08/20/2020 2:41 PM [facility] Comment: GFR Calc Starting 03/16/2018, serum creatinine based estimated GFR (eGFR) will be calculated using the Chronic Kidney Disease Epidemiology Collaboration (CKD-EPI) equation. Calcium 9.6 8.5 - 10.1 mg/dL 08/20/2020 2:41 PM CDT [facility] Blood 08/20/2020 1:39 PM CDT 08/20/2020 1:40 PM CDT Crystal Abraham PA-C LAB - BLOOD ORD ERABLES [facility] [address] [place] [address], [facility] [phone] * (ABNORMAL) Hemoglobin A1c (05/07/2017 8:25 AM AIRLINE MANAGER) Hemoglobin A1C 7.6(H) 4.2 - 6.1 % 05/07/2017 2:37 PM AIRLINE MANAGER [facility] LABORATORY Blood specimen (specimen) STRUCTURE OF LEFT UPPER LIMB / Unknown Venipuncture / Unknown 05/07/2017 8:25 AM AIRLINE MANAGER 05/07/2017 12:06 PM AIRLINE MANAGER Rosanne Turner CULLET WASHER LAB - BLOOD OR DERABLES Performing Organization Address City/[facility]/ZIP Co de Phone Number [facility] [address] [place] [address], [facility] [address] [place] [address] from Last 3 Months or Most Recently Relevant to Health Maintenance Advance Directives For more information, please contact: [phone] Documents on File Type Date Recorded Patient Hadoop Consultant Expl anation Advance Directives and Living Will 05/24/2014 HEALTH CARE DIRECTIVE-05/23/14 * DNR/DNI (Latest Code Status on File) Date Activated Date Inactivated Comments 03/20/2017 8:51 AM 03/21/2017 6:06 PM * Full Code Date Activated Date Inactivated Comments 07/30/2016 4:59 PM 03/20/2017 8:51 AM * Full Code Date Activated Date Inactivated Comments 07/29/2016 7:24 PM 07/30/2016 4:59 PM * DNR/DNI Date Activated Date Inactivated Comments 02/19/2016 8:27 AM 07/29/2016 7:24 PM * DNR/DNI Date Activated Date Inactivated Comments 02/18/2016 4:01 PM 02/19/2016 8:27 AM Care Teams Mine Safety Engineer Relationship Specialty Start Date End Date Jesus Mistry PCP - General Family Practice 04/14/19
--- OUTSIDE RECORDS SUMMARY | 2023-10-14 17:38 | XMS_ITS | Encounter Summary ---
Author Organization [facility] Address [address] [place] [address] Care Team Providers Care Cigar Head Holer Name Role Phone Chris Abreu MD Primary Care Provider Unava ilable Encounter Details Date Type Department Care Team (Latest Contact Info) Description 06/13/1996 Orders Only Ankit Winkler MD OFF SITE [address] [place] [id number] Social History Tobacco Use Types Packs/Day Years Used Date Smoking Tobacco: Never Assessed Sex and Gender Information Value Date Recorded Sex Assigned at Not on file Gender Identity Not on file Sexual Orientation Not on file documented as of this encounter Plan of Treatment Not on file documented as of this encounter Visit Diagnoses Not on filedocumented in this encounter Care Teams Cigar Head Holer Relationship Specialty Start Date End Date Chris Abreu MD PCP - General Family Practice 04/27/17 documented as of this encounter
--- OUTSIDE RECORDS SUMMARY | 2023-10-14 17:38 | XMS_ITS | Encounter Summary ---
Author Organization [facility] Address [address], [place] [address] Care Team Providers Care Assistant Brand Manager Name Role Phone Chris Abreu MD Primary Care Provider Unava ilable Encounter Details Date Type Department Care Team (Latest Contact Info) Description 06/22/1995 Orders Only Chris Ragsdale MD [address] [place], [place] [id number] Social History Tobacco Use Types Packs/Day Years Used Date Smoking Tobacco: Never Assessed Sex and Gender Information Value Date Recorded Sex Assigned at Not on file Gender Identity Not on file Sexual Orientation Not on file documented as of this encounter Plan of Treatment Not on file documented as of this encounter Visit Diagnoses Not on filedocumented in this encounter Care Teams Assistant Brand Manager Relationship Specialty Start Date End Date Chris Abreu MD PCP - General Family Practice 04/27/17 documented as of this encounter
--- OUTSIDE RECORDS SUMMARY | 2023-10-14 17:38 | XMS_ITS | Encounter Summary ---
Author Organization [facility] Address [address], [place] [address] Care Team Providers Care Membership Sales Manager Name Role Phone Chris Abreu MD Primary Care Provider Unava ilable Encounter Details Date Type Department Care Team (Latest Contact Info) Description 05/22/1995 Orders Only Chris Ragsdale MD [address] [place] [address] Social History Tobacco Use Types Packs/Day Years Used Date Smoking Tobacco: Never Assessed Sex and Gender Information Value Date Recorded Sex Assigned at Not on file Gender Identity Not on file Sexual Orientation Not on file documented as of this encounter Plan of Treatment Not on file documented as of this encounter Visit Diagnoses Not on filedocumented in this encounter Care Teams Membership Sales Manager Relationship Specialty Start Date End Date Chris Abreu MD PCP - General Family Practice 04/27/17 documented as of this encounter
--- OUTSIDE RECORDS SUMMARY | 2023-10-14 17:38 | XMS_ITS | Encounter Summary ---
Author Organization [facility] Address [address] [place] [address] Care Team Providers Care Crossbow Maker Name Role Phone Chris Abreu MD Primary Care Provider Unava ilable Encounter Details Date Type Department Care Team (Latest Contact Info) Description 09/25/1995 Orders Only Carmen Colbert Social History Tobacco Use Types Packs/Day Years Used Date Smoking Tobacco: Never Assessed Sex and Gender Information Value Date Recorded Sex Assigned at Not on file Gender Identity Not on file Sexual Orientation Not on file documented as of this encounter Plan of Treatment Not on file documented as of this encounter Visit Diagnoses Not on filedocumented in this encounter Care Teams Crossbow Maker Relationship Specialty Start Date End Date Chris Abreu MD PCP - General Family Practice 04/27/17 documented as of this encounter
--- OUTSIDE RECORDS SUMMARY | 2023-10-14 17:38 | XMS_ITS | Referral Summary ---
Author Organization [facility] Address [address] [place] [address] Care Team Providers Care Carpentry Supervisor Name Role Phone MistryJesus cavazos Primary Care Provider [phone] Allergies Active Allergy Reactions Criticality Noted Date [...] 25 MG tabletIndications:C oronary artery disease involving [place] coronary artery of [place] heart without angina pectoris Take 0.5 tablets (12.5 mg) by mouth daily 45 tablet 2 10/13/2017 Active atorvastatin (LIPITOR) 40 MG tabletIndications:C oronary artery disease involving [place] coronary artery of [place] heart without angina pectoris Take 1 tablet [...] 24 hr tabletIndications:C oronary artery disease involving [place] coronary artery of [place] heart without angina pectoris Take 1 tablet [...] the original. PT no longer part of [facility]. Do not call with any follow up! [...] 06/16/2012 Anxiety Coronary artery disease invo lving [place] coronary artery of [place] heart without angina pectoris Overview: cardiac cath 2016: CARO to RCA and CARO to OM Ischemic cardiomyopathy Overview: s/p Bi-V pacemaker implanted 06/2016 Mitral regurgitation Left bundle branch block Meniere disease Arthritis GERD (gastroesophageal reflux disease) Social History Tobacco Use Types Packs/Day Years [...] 05/19/2017 4:14 PM CS T Respiratory Rate 05/19/2017 4:14 PM CLINICAL NURSING ASSISTANT Oxygen Saturation 95% 12/24/2020 12:57 PM CDT Inhaled Oxygen Concentration - - Weight 95.3 kg (210 lb) 12/24/2020 12:57 PM CDT Height 157.5 cm (5' 2) 12/24/2020 12:57 PM CDT Body Mass Index 38.41 12/24/2020 12:57 PM CDT Plan of Treatment Not on file Medical Devices Implanted Type Area Gang Plank Workman Device Identifier Shelf Expiration Date Model / Serial / Lot Right Atrial Lead-07/25/2016 Implanted:07/25 by Francisco J King MD (Quantity not on file) [employer] 7740-45 / [id number] / Right Ventricular Lead-07/25/2016 Implanted:07/25 by Francisco J King MD (Quantity not on file) [employer] 7741-42 / [id number] / Left Ventricular Lead-07/25/2016 Implanted:07/25 by Francisco J King MD (Quantity not on file) [employer] 4674-86 / [id number] / Pacemaker-Eze Sci Implanted:07/25 by Francisco J King MD (Quantity not on file) Pacemaker [employer] VALITUDE X4 [employer]UB SAFETY PROGRAM COORDINATOR-P [id number] / [id number] / Bone Cement Palacos [id number] Implanted:Qty: 2 on 05/24/2014 by Chris Wang MD at [facility] Right: Knee [employer] 10/27/2018-1112-140 -01 / / [id number] Imp Plate Tibial Zim Nexgen Size 4 Implanted:Qty: 1 on 05/24/2014 by Chris Wang MD at [facility] Right: Knee [employer] 03/29/2024-5980-037 -02 / / [id number] Imp Comp Femoral Zim Size D Rt [id number] Implanted:Qty: 1 on 05/24/2014 by Chris Wang MD at [facility] Right: Knee [employer] 12/28/2023-5964-014 -52 / / [id number] Imp Comp Patella Zim Nexgen 8.5x32mm Implanted:Qty: 1 on 05/24/2014 by Chris Wang MD at [facility] Right: Knee [employer] 01/27/2022-5972-065 -32 / / [id number] Imp Art Surface Zim Lps Flex Cd 3-4 12mm [id number] Implanted:Qty: 1 on 05/24/2014 by Chris Wang MD at [facility] Right: Knee [employer] 09/26/2018-5962-030 -12 / / [id number] Procedures Procedure Name Priority Date/Time Associated Diagnosis Comments LIPID PROFILE Routine 12/24/2020 11:07 AM CDT Coronary artery disease involving [place] coronary artery of [place] heart without angina pectoris BASIC METABOLIC PANEL Routine 08/20/2020 1:39 PM CDT Acute on chronic heart failure with preserved ejection fraction (HFpEF) (H) HEMOGLOBIN A1C Routine 05/07/2017 8:25 AM CLINICAL NURSING ASSISTANT from Last 3 Months or Most Recently Relevant to Health Maintenance Results * (ABNORMAL) Lipid Profile (12/24/2020 11:07 AM CDT) [facility] Cholesterol 121 <200 mg/dL 12/24/2020 11:44 AM [...] ??Greater than or equal to 220 mg/dL Crysatl Abraham PA-C LAB - BLOOD ORD ERABLES LABORATORY [facility] Acute [facility] Lab [address], [address] [place] [address], [place] [phone] * (ABNORMAL) Basic metabolic panel (08/20/2020 1:39 PM CDT) [facility] Sodium 136 133 - 144 mmol/L 08/20/2020 2:33 PM CDT [facility] Potassium 4.2 3.4 - 5.3 mmol/L 08/20/2020 2:33 PM CDT [facility] Chloride 101 94 - 109 mmol/L 08/20/2020 2:33 PM T [facility] Carbon Dioxide 29 20 - 32 mmol/L 08/20/2020 2:41 PM T [facility] Anion Gap 6 3 - 14 mmol/L 08/20/2020 2:41 PM T [facility] Glucose 183(H) 70 - 99 mg/dL 08/20/2020 2:41 PM T [facility] Urea Nitrogen 22 7 - 30 mg/dL 08/20/2020 2:41 PM [facility] Creatinine 0.88 0.52 - 1.04 mg/dL 08/20/2020 2:41 PM [facility] GFR Estimate 63 >60 mL/min/{1. 73_m2} 08/20/2020 2:41 PM [facility] Comment: Non GFR Calc Starting 03/16/2018, serum creatinine based estimated GFR (eGFR) will be calculated using the Chronic Kidney Disease Epidemiology Collaboration (CKD-EPI) equation. GFR Estimate If Black 73 >60 mL/min/{1. 73_m2} 08/20/2020 2:41 PM [facility] Comment: GFR Calc Starting 03/16/2018, serum creatinine based estimated GFR (eGFR) will be calculated using the Chronic Kidney Disease Epidemiology Collaboration (CKD-EPI) equation. Calcium 9.6 8.5 - 10.1 mg/dL 08/20/2020 2:41 PM CDT [facility] Blood 08/20/2020 1:39 PM CDT 08/20/2020 1:40 PM CDT Crystal Abraham PA-C LAB - BLOOD ORD ERABLES Performing Organization Address City/[facility]/ZIP Co de Phone Number [facility] [address] [place] [address], [facility] [phone] * (ABNORMAL) Hemoglobin A1c (05/07/2017 8:25 AM CLINICAL NURSING ASSISTANT) Hemoglobin A1C 7.6(H) 4.2 - 6.1 % 05/07/2017 2:37 PM CLINICAL NURSING ASSISTANT [facility] Blood specimen (specimen) STRUCTURE OF LEFT UPPER LIMB / Unknown Venipuncture / Unknown 05/07/2017 8:25 AM CLINICAL NURSING ASSISTANT 05/07/2017 12:06 PM CLINICAL NURSING ASSISTANT Rosanne Turner [facility] LAB - BLOOD OR DERABLES Performing Organization Address City/[facility]/ZIP Co de Phone Number [facility] [address] [place] [address], [facility] [address] [place] [address] from Last 3 Months or Most Recently Relevant to Health Maintenance Advance Directives For more information, please contact: [phone] Documents on File Type Date Recorded Patient Jewelry Facer Expl anation Advance Directives and Living Will [...] 4:01 PM 02/19/2016 8:27 AM Care Teams Carpentry Supervisor Relationship Specialty Start Date End Date Jesus Mistry PCP - General Family Practice 04/14/19
--- OUTSIDE RECORDS SUMMARY | 2023-10-14 17:38 | XMS_ITS | Encounter Summary ---
Author Organization [facility] Address [address] [place] [address] Care Team Providers Care Sander Machine Name Role Phone Chris Abreu MD Primary Care Provider Unava ilable Encounter Details Date Type Department Care Team (Latest Contact Info) Description 05/28/1996 Orders Only Carmen Colbert Social History Tobacco [...] on filedocumented in this encounter Care Teams Sander Machine Relationship Specialty Start Date End Date Chris Abreu MD PCP - General Family Practice 04/27/17 documented as of this encounter
--- OUTSIDE RECORDS SUMMARY | 2023-10-14 17:38 | XMS_ITS | Encounter Summary ---
Author Organization [facility] Address [address] [address] Care Team Providers Care Senior Pensions Administrator Name Role Phone Chris Abreu MD Primary Care Provider David ilvira Encounter Details Date Type Department Care Team (Latest Contact Info) Description 09/27/1995 Orders Only Amada Stubbs MD [address] [place] [address] Social History Tobacco Use Types [...] filedocumented in this encounter Care Teams Senior Pensions Administrator Relationship Specialty Start Date End Date Chris Abreu MD PCP - General Family Practice 04/27/17 documented as of this encounter
--- OUTSIDE RECORDS SUMMARY | 2023-10-14 17:38 | XMS_ITS | Encounter Summary ---
Author Organization [facility] Address [address], [place] [address] Care Team Providers Care Copper Roller Handler Printing Name Role Phone Chris Abreu MD Primary Care Provider Unava ilable Encounter Details Date Type Department Care Team (Latest Contact Info) Description 04/07/1995 Orders Only Chris Ragsdale MD [address] [place], [place] [id number] Social History Tobacco Use Types Packs/Day Years Used Date Smoking Tobacco: Never Assessed Sex and Gender Information Value Date Recorded Sex Assigned at Not on file Gender Identity Not on file Sexual Orientation Not on file documented as of this encounter Plan of Treatment Not on file documented as of this encounter Visit Diagnoses Not on filedocumented in this encounter Care Teams Copper Roller Handler Printing Relationship Specialty Start Date End Date Chris Abreu MD PCP - General Family Practice 04/27/17 documented as of this encounter
--- OUTSIDE RECORDS SUMMARY | 2023-10-14 17:38 | XMS_ITS | Encounter Summary ---
Author Organization [facility] Address [address] [address] Care Team Providers Care Doubler Helper Name Role Phone Chris Abreu MD Primary Care Provider David ilvira Encounter Details Date Type Department Care Team (Latest Contact Info) Description 09/19/1995 Orders Only Amada Stubbs MD [address] [place] [address] Social History Tobacco Use Types [...] on filedocumented in this encounter Care Teams Doubler Helper Relationship Specialty Start Date End Date Chris Abreu MD PCP - General Family Practice 04/27/17 documented as of this encounter
--- OUTSIDE RECORDS SUMMARY | 2023-10-14 17:38 | XMS_ITS | Encounter Summary ---
Author Organization [facility] Address [address] [address] Care Team Providers Care Manager Performance Name Role Phone Chris Abreu MD Primary Care Provider David ilvira Encounter Details Date Type Department Care Team (Latest Contact Info) Description 05/03/1995 Orders Only Amada Stubbs MD [address] [place] [address] Social History Tobacco Use Types [...] on filedocumented in this encounter Care Teams Manager Performance Relationship Specialty Start Date End Date Chris Abreu MD PCP - General Family Practice 04/27/17 documented as of this encounter
--- OUTSIDE RECORDS SUMMARY | 2023-10-14 17:38 | XMS_ITS | Encounter Summary ---
Author Organization [facility] Address [address] [address] Care Team Providers Care Solar System Designer Name Role Phone Chris Abreu MD Primary Care Provider David ilvira Encounter Details Date Type Department Care Team (Latest Contact Info) Description 04/11/1995 Orders Only Amada Stubbs MD [address] [place] [address] Social History Tobacco Use [...] on filedocumented in this encounter Care Teams Solar System Designer Relationship Specialty Start Date End Date Chris Abreu MD PCP - General Family Practice 04/27/17 documented as of this encounter
--- OUTSIDE RECORDS SUMMARY | 2023-10-14 17:39 | XMS_ITS | Clinical Summary ---
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 Meperidine Agitation High 04/29/2006 Nitroimidazoles Diarrhea High 12/22/2014 Violent diarrhea Latex Rash Medium 04/29/2006 Also Tegaderm dressings. Metronidazole Diarrhea High 08/07/2015 Violent diarrhea Morphine Nausea Only 10/14/1999 Stomach upset Gabapentin Other - Describe In Comment Field High 05/01/2014 Medication made her very anxious, gave her a crawly feeling Nickel Rash 02/27/2016 Tizanidine Other - Describe In Comment Field 11/01/2020 Hallucination Diazepam Agitation Medium 04/29/2006 Medications Medication Sig Dispensed Refills Start Date End Date Status lancetsIndications :Type 2 diabetes mellitus with hyperglycemia, without long-term current use of insulin (HC) As directed. Test 2 times per day. 200 Each 3 04/13/19 20 Active blood sugar diagnostic (BLOOD GLUCOSE TEST) stripIndications:T ype 2 diabetes mellitus with hyperglycemia, without long-term current use of insulin (HC) As directed. Test 2 times per day. [employer] 200 Strip 3 04/13/19 Active Walker - 4 wheelsIndications: Gait instability With seat. For home use. Length of need: 99 1 Device 04/22/19 Active blood-glucose meterIndications:T ype 2 diabetes mellitus without complication, without long-term current use of insulin (HC) Inject subcutaneous. Dispense meter, test strips, lancets covered by pt ins. E11.9 NIDDM type II - Test 1 time/day 1 Each 06/15/19 Active Diaper,Brief, Adult,DisposableIn dications:Urge incontinence of urine For home use. 32 Each 11 07/24/19 22 Active metoprolol succinate (TOPROL XL) 25 mg Sustained-Release tabletIndications: Ischemic cardiomyopathy TAKE TWO TABLETS BY MOUTH DAILY 180 Tablet 07/26/19 24 Active traZODone (DESYREL) 50 mg tabletIndications: Insomnia, idiopathic TAKE 2 TABLETS (100 MG) BY MOUTH AT BEDTIME. 180 Tablet 07/26/19 24 Active metFORMIN (GLUCOPHAGE XR) 500 mg Extended-Release tabletIndications: Type 2 diabetes mellitus with diabetic polyneuropathy, unspecified whether terminal superintendent insulin use (HC) TAKE 4 TABLETS BY MOUTH DAILY AT 10AM 360 Tablet 07/26/19 24 Active Additional Information Patient taking differently: 1,000 mg Oral DAILY, (No instructions reported), Informant: Patient's Recall, Reported on 10/07/2023 spironolactone (ALDACTONE) 25 mg tabletIndications: Benign essential HTN TAKE 1/2 TABLET BY MOUTH DAILY 45 Tablet 2 08/27/19 24 Active omeprazole (PRILOSEC) 20 mg Delayed-Release capsuleIndications :Chronic GERD TAKE ONE CAPSULE BY MOUTH DAILY 90 Capsule 2 08/27/19 24 Active pramipexole (MIRAPEX) 0.125 mg tabletIndications: RLS (restless legs syndrome) 2 TABS EVERY EVENING, NOON DOSE DAILY NEEDED. 270 Tablet 09/09/19 24 Active oxyCODONE (ROXICODONE) 5 mg immediate release tabletIndications: Neck pain TAKE 1 TO 2 TABLETS BY MOUTH TWO TIMES DAILY NEEDED. FOR CHRONIC PAIN. 120 Tablet 09/09/19 24 Active Additional Information Patient taking differently: 10 mg Oral BID, (No instructions reported), Informant: Patient's Recall, Reported on 10/07/2023 WalkerIndications: Polymyalgia rheumatica (HC),Coronary artery disease involving [place] coronary artery without angina pectoris, unspecified whether [place] or transplanted heart Walker with wheels,seat,hand brakes,and basket for home use. Length of need: 99 months 1 Each 10/09/19 Active busPIRone (BUSPAR) 5 mg tabletIndications: Mild major depression (HC),Anxiety Take 1 Tablet (5 mg) by mouth two times daily. 10/13/19 Active hydrocortisone 1 % creamIndications:R bob Apply topically to affected area(s) 4 times daily if needed for Itching (Arm rash, RIGHT posterior). 10/13/19 Active dulaglutide (Trulicity) 3 mg/0.5 mL subcutaneous penIndications:Typ e 2 diabetes mellitus without complication, without long-term current use of insulin (HC) Inject 3 mg subcutaneous once weekly. 10/13/19 Active acetaminophen (TYLENOL EXTRA STRGTH) 500 mg tabletIndications: Pain Take 2 Tablets (1,000 mg) by mouth two times daily. 10/13/19 Active amitriptyline (ELAVIL) 10 mg tabletIndications: Primary insomnia Take 2 Tablets (20 mg) by mouth at bedtime. 10/13/19 Active apixaban (Eliquis) 5 mg tabletIndications: Paroxysmal A-fib (HC) Take 1 Tablet (5 mg) by mouth two times daily. 10/13/19 Active atorvastatin (LIPITOR) 40 mg tabletIndications: Type 2 diabetes mellitus with diabetic polyneuropathy, unspecified whether terminal superintendent insulin use (HC) Take 1 Tablet (40 mg) by mouth once daily. 10/13/19 Active FLUoxetine (PROZAC) 20 mg capsuleIndications :Depression, unspecified depression type Take 1 Capsule (20 mg) by mouth once daily. 10/13/19 Active furosemide (LASIX) 20 mg tabletIndications: Ischemic cardiomyopathy Take 3 Tablets (60 mg) by mouth once daily. 10/13/19 Active hydrOXYzine HCL (ATARAX) 10 mg tabletIndications: Anxiety Take 1 Tablet (10 mg) by mouth every 8 hours if needed for Anxiety. 10/13/19 Active lidocaine 5 % topical patchIndications:M echanical back pain Apply 1 Patch on dry, clean, hairless skin once daily if needed for Pain. APPLY ON DRY, CLEAN, HAIRLESS SKIN. APPLY 1 PATCH TO PAINFUL AREA OF SKIN FOR UP TO 12 HOURS WITHIN 24 HOUR PERIOD. 10/13/19 24 Active penicillin v potassium (PEN-VEE K) 500 mg tabletIndications: dental infection Take 1 Tablet (500 mg) by mouth four times daily before meals and at bedtime for 3 days. 10/13/19 24 024 Active nystatin 100,000 unit/gram creamIndications:R bob Apply topically to affected area(s) two times daily. 10/13/19 24 Active oxyCODONE (ROXICODONE) 5 mg immediate release tabletIndications: Pain Take 1 Tablet (5 mg) by mouth 2 times daily if needed for Pain. 20 Tablet 10/13/19 24 Active acetaminophen (TYLENOL EXTRA STRGTH) 500 mg tabletIndications: Pain Take 2 tablets by mouth 2 times daily. 180 tablet 3 07/27/19 20 024 Discontinued nitroglycerin (NITROSTAT) 0.4 mg sublingual tabletIndications: History of heart attack DISSOLVE 1 TABLET UNDER TONGUE EVERY 5 MINUTES NEEDED FOR CHEST PAIN IF STILL SYMPTOMS AFTER 3 DOSES CALL 911 25 Tablet 1 10/06/19 21 024 Discontinued(Ph [facility]ist change per medication history (E-cancel not sent)) albuterol HFA (PRO-AIR; VENTOLIN; PROVENTIL) 90 mcg/actuation inhalerIndications :SOB (shortness of breath) Inhale 1-2 Puffs by mouth every 4 hours if needed for Shortness Of Breath. 1 Each 01/15/20 22 024 Discontinued(Ph armacist change per medication history (E-cancel not sent)) meclizine chewable (ANTIVERT) 25 mg tabletIndications: Meniere's disease, unspecified laterality CHEW ONE-HALF TABLET(12.5MG) BY MOUTH 2 TIMES DAILY IF NEEDED FOR VERTIGO 20 Tablet 1 07/12/19 23 024 Discontinued(Ph armacist change per medication history (E-cancel not sent)) dulaglutide (Trulicity) 3 mg/0.5 mL subcutaneous penIndications:Typ e 2 diabetes mellitus without complication, without long-term current use of insulin (HC) Inject 3 mg subcutaneous once weekly. 6 mL 1 12/19/19 23 024 Discontinued lidocaine 5 % topical patchIndications:M echanical back pain APPLY ON DRY, CLEAN, HAIRLESS SKIN. APPLY 1 PATCH TO PAINFUL AREA OF SKIN FOR UP TO 12 HOURS WITHIN 24 HOUR PERIOD. 90 Patch 1 06/10/19 24 024 Discontinued nystatin (MYCOSTATIN) 100,000 unit/gram topical creamIndications:R bob Apply topically to affected area(s) two times daily. As needed to effected areas. 30 g 3 06/10/19 24 024 Discontinued(Ph armacist change per medication history (E-cancel not sent)) apixaban (Eliquis) 5 mg tabletIndications: Paroxysmal A-fib (HC) TAKE ONE TABLET BY MOUTH TWICE A DAY 180 Tablet 3 06/26/19 24 024 Discontinued fluconazole (DIFLUCAN) 150 mg tabletIndications: Fungal dermatitis One tablet oral weekly for 4 weeks. 4 Tablet 06/29/19 24 024 Discontinued(Ph armacist change per medication history (E-cancel not sent)) atorvastatin (LIPITOR) 40 mg tabletIndications: Type 2 diabetes mellitus with diabetic polyneuropathy, unspecified whether terminal superintendent insulin use (HC) TAKE ONE TABLET BY MOUTH DAILY 90 Tablet 2 07/26/19 24 024 Discontinued amitriptyline (ELAVIL) 10 mg tabletIndications: Primary insomnia TAKE 2 TABLETS (20 MG) BY MOUTH AT BEDTIME. 180 Tablet 07/26/19 24 024 Discontinued clobetasol 0.05% (TEMOVATE 0.05% OINTMENT) 0.05 % ointmentIndication s:Lichen planus Apply to affected areas once daily at bedtime. 30 g 1 07/27/19 24 024 Discontinued(Ph armacist change per medication history (E-cancel not sent)) hydrOXYzine HCL (ATARAX) 10 mg tabletIndications: Anxiety TAKE 1 TABLET (10 MG) BY MOUTH EVERY 8 HOURS IF NEEDED FOR ANXIETY. 60 Tablet 08/21/19 24 024 Discontinued FLUoxetine (PROZAC) 20 mg capsuleIndications :Depression, unspecified depression type TAKE ONE CAPSULE BY MOUTH DAILY 90 Capsule 08/27/19 24 024 Discontinued furosemide (LASIX) 20 mg tabletIndications: Ischemic cardiomyopathy TAKE 3 TABLETS BY MOUTH DAILY 270 Tablet 08/27/19 24 024 Discontinued hydrOXYzine HCL (ATARAX) 10 mg tabletIndications: Anxiety TAKE 1 TABLET (10 MG) BY MOUTH EVERY 8 HOURS IF NEEDED FOR ANXIETY. 60 Tablet 09/22/19 24 024 Discontinued busPIRone (BUSPAR) 5 mg tabletIndications: Mild major depression (HC),Anxiety Take 1 Tablet (5 mg) by mouth two times daily. 60 Tablet 5 10/13/19 24 024 Discontinued hydrocortisone 1 % creamIndications:R bob Apply topically to affected area(s) 4 times daily if needed for Itching (Arm rash, RIGHT posterior). 30 g 10/13/19 24 024 Discontinued Active Problems Problem Noted Date Diagnosed Date Rash 10/12/2023 Chronic dental infection 10/08/2023 Orthostasis 10/07/2023 Yeast dermatitis 10/07/2023 Chronic pain 10/06/2023 Failure to thrive in adult 10/06/2023 UTI (urinary tract infection) 10/06/2023 Polymyalgia rheumatica 06/10/2023 HFrEF (heart failure with reduced ejection fract ion) 12/18/2022 Hyperlipidemia 12/18/2022 Pulmonary fibrosis 09/16/2022 Trigger ring finger of left hand 05/30/2022 Hand arthritis 01/14/2022 Paroxysmal A-fib 04/01/2021 Morbid obesity 04/01/2021 Status post biventricular pacemaker 04/14/2017 Overview: Placed June, for heart failure. Excellent improvement on ECHO by Feb, 2017. Ischemic cardiomyopathy 08/03/2015 Overview: ERF of 25-30% in December, Vitamin D deficiency 08/03/2015 Frequent falls 08/03/2015 ACP (advance care planning) 08/03/2015 Overview: Patient has identified Health Care Agent(s): No Add Health Care Agents: No Patient has Advance Care Plan Documents (Health Care Directive, POLST): Yes Advance Care Plan Documents: POLST Form Patient has identified Specific Treatment Preferences: Yes Specific Treatment Preferences: a.) Code Status: DNR/ Do Not Attempt Resuscitation - Allow a Natural b.) Goals of Treatment: ii. Limited Interventions and treat reversible conditions. Provide interventions aimed at treatment of new or reversible illness/injury or non-life threatening chronic conditions. Duration of invasive or uncomfortable interventions should generally be limited.- Do not intubate c.) Interventions and Treatments: i. Antibiotics: - Use Aggressive antibiotic treatment ii. Nutrition/Hydration: - Offer food and liquids by mouth - IV fluid administration CAD (coronary artery disease ) Stents to obtuse marginal and proximal right coronary arteries (drug-eluting) 07/12/2015 Overview: NSTEMI Dec, 2015 after STEMI and RCA angioplasty Mar, 2015. EF 25-30% Dec, 2015 ECHO. Pain medication agreement 01/09/2015 Overview: Updated CSA 01-10-16. continiues to take norco one tab bid-tid. Limit 75 tabs per month. Agrees to visit for pain management every three months. Advised she needs urine test at least once per year. Electronic refills can be sent monthly in between her visits. Agrees to single prescriber and single pharmacy. Chris Abreu MD .................... 01/10/2016 11:13 AM Urine drug screen 05-28-16 Visit 12-18-16 - next visit three March,. S/P total knee arthroplasty 05/29/2014 Overview: Right, uneventful surg but ongoing pain. Mild major depression 05/29/2014 Anxiety 05/29/2014 Insomnia 05/29/2014 Meniere disease 05/29/2014 Constipation 05/29/2014 Osteoarthrosis 05/01/2014 Overview: Shoulder and knee Fibromyalgia 02/03/2012 Irritable bowel syndrome 02/03/2012 Essential hypertension 02/03/2012 Overview: Metoprolol XL 50mg/day, Lasix 40mg daily, lisinopril 20mg daily, Type 2 diabetes mellitus wit h hyperglycemia, without long-term current use of insulin 02/03/2012 Overview: Metformin 1000mg twice daily. Hemoglobin a1c 7.3 on 06/29/15 and 8.0 on 03/13. Restless legs syndrome (RLS) 01/12/2012 Cervicalgia 09/28/2007 Overview: Ongoing neck pain, advanced djd neck. S/p fusion C6-7 Degeneration of lumbar or lumbosacral interverte bral disc 09/28/2007 Resolved Problems Problem Noted Date Diagnosed Date Resolved Date Acute on chronic heart failu re with preserved ejection fraction (HFpEF) 04/01/2021 12/18/2022 Mild dementia 11/22/2020 09/16/2022 Acute coronary syndrome 01/14/201605/28 Aftercare following joint replacement 05/29/2014 05/28/2016 Overview: R TKA Dizziness 05/29/2014 12/18/2022 Postoperative anemia 05/29/2014 023 Depression 05/29/2014 10/14/2019 Generalized weakness 05/29/2014 020 Obesity (BMI 35.0-39.9 without comorbidity) 02/03/2012 08/05/2021 Overview: working on weight loss with the [facility] in [place] Hyperlipidemia LDL goal < 100 02/03/2012 12/18/2022 Overview: 06/25/15: TC 111, TG 158, HDL 41, LDL 38. Atorvastatin 40mg Encounters Date Type Department Care Team Description 10/13/2023 Orders Only [facility] [address] [place] [address] Dustin Barajas NP <No scans attached> 10/06/2023 3:32 PM CDT - 10/13/2023 12:30 PM CDT Hospital Encounter [facility] [address] [place] [address] Lacey Rascon MD Bowler, MD Nela Castro, Hung C, MD Drevlow, KeenanDO Nicole Escoto Thao Nguyen Le, NP McCosh, DO Ely Booker, MD Karl Mcwilliams, Dustin Zacarias NP Social problem (Primary Dx); Transportation insecurity; Polymyalgia rheumatica (HC); Coronary artery disease involving [place] coronary artery without angina pectoris, unspecified whether [place] or transplanted heart; Mild major depression (HC); Anxiety; Rash; Type 2 diabetes mellitus without complication, without long-term current use of insulin (HC); Pain; Primary insomnia; Paroxysmal A-fib (HC); Type 2 diabetes mellitus with diabetic polyneuropathy, unspecified whether usp insulin use (HC); Depression, unspecified depression type; Ischemic cardiomyopathy; Mechanical back pain; Dental infection; Neck pain Discharge Disposition: [facility] Facility 10/06/2023 Travel 09/21/2023 Refill [facility] [address] [place] [address] Jesus Mistry MD Refill Request (Hydroxyzine Hcl) 09/09/2023 Telephone [facility] [address] [place] [address] Jesus Mistry MD Refill Request (oxyCODONE (ROXICODONE), pramipexole (MIRAPEX)) 08/25/2023 Refill [facility] [address] [place] [address] Jesus Mistry MD Refill Request (Spironolactone, Fluoxetine, Furosemide, Omeprazole) 08/19/2023 Refill [facility] [address] [place] [address] Jesus Mistry MD Refill Request (Hydroxyzine Hcl) 08/11/2023 Telephone [facility] [address] [place] [address] Jesus Mistry MD I 08/10/2023 Orders Only [facility] [address] [place] [address] Jesus Mistry MD <No scans attached> 08/10/[address] [address] Jesus Mistry MD Concerns (Medical needs/) 08/07/2023 Orders Only [address] [address] Jesus Mistry MD <No scans attached> 08/06/[address] [address] Jesus Mistry MD Referral 07/29/[address] [address] Jesus Mistry MD Questions (on receiving fax) 07/25/[address] [address] Jesus Mistry MD Refill Request (Atorvastatin, Metoprolol Succinate, Trazodone, Amitriptyline, Metformin) 07/24/[address] [address] Jesus Mistry MD Concerns 07/23/2023 Nurse Triage [address] [address] Jesus Mistry MD Questions (No new or worsening symptoms) 07/22/[address] [phone] Jesus Mistry MD Refill Request (Oxycodone) 07/21/[address] [address] Jesus Mistry MD Medication Management (fluconazole (DIFLUCAN) 150 mg tablet/) from Last 3 Months Immunizations Name Administration Dates Next Due COVID-19 vaccine (Moderna 100mcg/0.5mL) KISHORE NUNEZ 02/28/2021,06/20/2020,05/23/2020 Influenza A (H1N1), Inactivated 05/31/2009 Influenza, High-dose Inactivated 01/14/2019,12/28,11/28/2014 Influenza, High-dose Quadriv alent Inactivated 01/21/2021 Influenza, IIV3 (Age >=3 years) 04/03/2012 Influenza, IIV4 03/21/2020, 9,03/06/2008,04/22,03/15/2007 Influenza, Inactivated AIIV4 (Age 65+ Years) Preserv Free 01/14/2022 Influenza, Inactivated IIV3 (Age 65+ Years) Preserv Free 12/03/2017,02/16/2017,02/04/2010 Pneumococcal Conj 20-valent (Prevnar 20) 12/18/2022 Pneumococcal Poly,23-Valent (Pneumovax) 01/09/2005 Pneumococcal conj 13-Valent (Prevnar 13) 12/03/2017 RSV, Bivalent Vaccine Recons tituted (Abrysvo 120MCG/0.5mL) 05/05/2023 Td (Age >=7 Years) 03/29/1995 Tdap 01/08/2012,08/27/2005 Family History Medical History Relation Name Comments Heart Disease Father Good Health Mother Anesthesia Problem No Family History Relation Name Status Comments Father Mother (Age 92) Social History Tobacco Use Types Packs/Day Years Used Date Smoking Tobacco: Never Smokeless Tobacco: Never Tobacco Cessation:Counseling Given: No Alcohol Use Standard Drinks/Week Comments No 0 (1 standard drink = 0.6 oz pur e alcohol) PHQ-2 Answer Date Recorded PHQ-2 TOTAL SCORE 1 12/18/2022 Social Connections Answer Date Recorded Frequency of Communication with Friends and Fami ly 0 10/06/2023 Financial Resource Strain Answer Date R ecorded Difficulty of Paying Living Expenses 3 10/06/2023 Difficulty of Paying Living Expenses Not on file 10/06/2023 Food Insecurity Answer Date Recorded Worried About Running Out of Food in the Last Ye ar 1 10/06/2023 Transportation Needs Answer Date Record ed Lack of Transportation (Medical) 2 10/06/2023 Housing Stability Answer Date Recorded Unable to Pay for Housing in the Last Year 1 10/06/2023 Sex and Gender Information Value Date Recorded Sex Assigned at Female 08/11/2022 1:49 PM CDT Gender Identity Female 08/11/2022 1:49 PM CDT Sexual Orientation Not on file Obstetrics History Para Term AB IAB SAB Ectopic Multiple Livin g Live Births 3 3 3 3 Date Outcome GA Total Labor Labor/2nd/3rd Weight Sex Type Anes PTL Gege A1 A5 Name Clin Term Term Term Last Filed Vital Signs Vital Sign Reading Time Taken Comments Blood Pressure 133/61 10/13/2023 8:44 AM CDT Pulse 78 10/13/2023 8:44 AM CDT Temperature 36.8 ??C (98.2 ??F) 10/13/2023 8:44 AM CD T Respiratory Rate 16 10/13/2023 8:44 AM CDT Oxygen Saturation 93% 10/13/2023 8:44 AM CDT Inhaled Oxygen Concentration - - Weight 84.4 kg (186 lb) 10/13/2023 4:19 AM CDT Height 156.6 cm (5' 1.65) 10/06/2023 4:17 PM CD T Body Mass Index 34.4 10/06/2023 4:17 PM CDT Plan of Treatment Health Maintenance Due Date Last Done Comments Zoster (shingles) series for age 50+ (1 of 2) 06/28/1991 Tetanus booster 01/07/2022 01/08/2012, 03/2009 (Completed outside of [facility]), 08/27/2005, Additional history exists COVID-19 vaccine series ( season) 2022 02/28/2021, 06/20/2020, 05/23/2020 Influenza for age 65+ 11/29/2023 01/14/2022 , 01/21/2021, 03/21/2020, Additional history exists BMI (ht and wt on same day) for age 18+ 12/19/2023 12/18/2022, 09/16/2022, 05/30/2022, Additional history exists Medicare Wellness for age 65+ 12/19/2023 12/18/2022 Depression screening for age 12+ 12/23/2023 12/22/2022, 12/18/2022, 12/18/2022, Additional history exists Tdap Completed 01/08/2012, 08/27/2005 Pneumococcal series for age 65+ Completed 12/18/2022, 12/03/2017, 01/09/2005 DEXA/DXA scan for age 65+ Completed 12/24/2022, Procedures Procedure Name Priority Date/Time Associated Diagnosis Comments GLUCOSE METER Routine 10/13/2023 11:23 AM CDT GLUCOSE METER Routine 10/13/2023 7:38 AM CDT GLUCOSE METER Routine 10/12/2023 9:46 PM CDT GLUCOSE METER Routine 10/12/2023 6:31 PM CDT GLUCOSE METER Routine 10/12/2023 12:40 PM CDT GLUCOSE METER Routine 10/12/2023 7:45 AM CDT GLUCOSE METER Routine 10/11/2023 9:12 PM CDT GLUCOSE METER Routine 10/11/2023 5:03 PM CDT GLUCOSE METER Routine 10/11/2023 11:50 AM CDT GLUCOSE METER Routine 10/11/2023 7:59 AM CDT CREATININE Early AM 10/11/2023 5:47 AM CDT POTASSIUM Early AM 10/11/2023 5:47 AM CDT SODIUM Early AM 10/11/2023 5:47 AM CDT GLUCOSE METER Routine 10/10/2023 10:05 PM CDT GLUCOSE METER Routine 10/10/2023 5:40 PM CDT GLUCOSE METER Routine 10/10/2023 12:33 PM CDT GLUCOSE METER Routine 10/10/2023 8:26 AM CDT GLUCOSE METER Routine 10/09/2023 9:13 PM CDT GLUCOSE METER Routine 10/09/2023 6:31 PM CDT GLUCOSE METER Routine 10/09/2023 1:25 PM CDT GLUCOSE METER Routine 10/09/2023 6:35 AM CDT POTASSIUM Early AM 10/09/2023 6:17 AM CDT CREATININE Early AM 10/09/2023 6:17 AM CDT SODIUM Early AM 10/09/2023 6:17 AM CDT HEMOGLOBIN Early AM 10/09/2023 6:17 AM CDT GLUCOSE METER Routine 10/08/2023 10:02 PM CDT GLUCOSE METER Routine 10/08/2023 5:36 PM CDT GLUCOSE METER Routine 10/08/2023 12:32 PM CDT GLUCOSE METER Routine 10/08/2023 7:38 AM CDT GLUCOSE METER Routine 10/07/2023 9:25 PM CDT GLUCOSE METER Routine 10/07/2023 6:02 PM CDT GLUCOSE METER Routine 10/07/2023 2:32 PM CDT GLUCOSE METER Routine 10/07/2023 8:53 AM CDT PLATELET COUNT Early AM 10/07/2023 5:40 AM CDT HEMOGLOBIN Early AM 10/07/2023 5:40 AM CDT WHITE BLOOD COUNT Early AM 10/07/2023 5:4 0 AM CDT CREATININE Early AM 10/07/2023 5:40 AM CDT SODIUM Early AM 10/07/2023 5:40 AM CDT GLUCOSE METER Routine 10/06/2023 11:12 PM CDT HEMOGLOBIN A1C Today 10/06/2023 9:14 PM CDT CBC WITH AUTO DIFFERENTIAL Today 10/06/2023 9:14 PM CDT CK TOTAL Today 10/06/2023 9:14 PM CDT PHOSPHORUS Today 10/06/2023 9:14 PM CDT MAGNESIUM Today 10/06/2023 9:14 PM CDT CBC WITH AUTO DIFFERENTIAL Today 10/06/2023 9:14 PM CDT BASIC METABOLIC PANEL Today 10/06/2023 9:14 PM CDT URINE CULTURE JN 10/06/2023 4:21 PM CDT URINALYSIS MICROSCOPIC STAT 10/06/2023 4:21 PM CDT UA W/ SEDIMENT EXAM REFLEXED PER CRITERIA STAT 10/06/2023 4:21 PM CDT DRUG SCREEN RAPID URINE INHOUSE STAT 10/06/2023 4:21 PM CDT XR DXA BONE DENSITY 2 SITES AXIAL Routine 12/24/2022 1:30 PM CDT Post-menopausal from Last 3 Months or Most Recently Relevant to Health Maintenance Results * (ABNORMAL) GLUCOSE METER (10/13/2023 11:23 AM CDT) Only the most recent of27 resultswithin the time period is included. [facility] GLUCOSE METER 176(H) 65 - 100 mg/dL 10/13/2023 11:24 AM CDT [facility] Blood BLOOD SPECIMEN / Unknown 10/13/2023 11:23 AM CDT 10/13/2023 11:24 AM CDT Yoana Cain MD CHEMISTRY Performing Organization Address City/[facility]/ZIP Co de Phone Number [facility] [address] [place] [address] * SODIUM (10/11/2023 5:47 AM CDT) Only the most recent of3 resultswithin the time period is included. SODIUM 136 136 - 145 mmol/L 10/11/2023 7:04 AM CDT [facility] Blood BLOOD SPECIMEN / Unknown Venipuncture / Unknown 10/11/2023 5:47 AM CDT 10/11/2023 6:26 AM CDT Marily Herrmann DO CHEMISTRY Performing Organization Address [facility] Co de Phone Number [facility] [address] [place] [address] * POTASSIUM (10/11/2023 5:47 AM CDT) Only the most recent of2 resultswithin the time period is included. POTASSIUM 4.6 3.5 - 5.1 mmol/L 10/11/2023 7:04 AM CDT [facility] Blood BLOOD SPECIMEN / Unknown Venipuncture / Unknown 10/11/2023 5:47 AM CDT 10/11/2023 6:26 AM CDT Marily Herrmann DO CHEMISTRY Performing Organization Address City/[facility] Co de Phone Number [facility] [address] [place] [address] * (ABNORMAL) CREATININE (10/11/2023 5:47 AM CDT) Only the most recent of3 resultswithin the time period is included. Pathologist [facility] eGFR 66(L) >90 mL/min/1.7 3m2 10/11/2023 7:04 AM CDT [facility] Comment:As of 2021, eG FR is calculated by the CKD-EPI creatinine equation without race adjustment. ??eGFR can be influenced by muscle mass, exercise, and diet. ??The reported eGFR is an estimation only and is only applicable if the renal function is stable. CREATININE 0.88 0.50 - 0.90 mg/dL 10/11/2023 7:04 AM CDT [facility] Blood BLOOD SPECIMEN / Unknown Venipuncture / Unknown 10/11/2023 5:47 AM CDT 10/11/2023 6:26 AM CDT Marily Herrmann DO CHEMISTRY Performing Organization Address City/[facility]/ZIP Co de Phone Number [facility] [address] [place] [address] * HEMOGLOBIN (10/09/2023 6:17 AM CDT) Only the most recent of2 resultswithin the time period is included. [facility] HEMOGLOBIN 12.4 12.0 - 16.0 g/dL 10/09/2023 6:35 AM CDT [facility] MCV 91 80 - 100 fL 10/09/2023 6:35 AM CDT [facility] Blood BLOOD SPECIMEN / Unknown Venipuncture / Unknown 10/09/2023 6:17 AM CDT 10/09/2023 6:26 AM CDT Keenan Ames DO HEMATOLOGY [facility] [address] [place] [address] * PLATELET COUNT (10/07/2023 5:40 AM CDT) [facility] PLATELET COUNT 301 140 - 440 thou/cu mm 10/07/2023 6:28 AM CDT [facility] MPV 8.7 6.5 - 11.0 fL 10/07/2023 6:28 AM CDT [facility] Blood BLOOD SPECIMEN / Unknown Venipuncture / Unknown 10/07/2023 5:40 AM CDT 10/07/2023 6:17 AM CDT John Rondon MD HEMATOLOGY Performing Organization Address City/[facility]/ZIP Co de Phone Number [facility] [address] [place] [address] * WHITE BLOOD COUNT (10/07/2023 5:40 AM CDT) WHITE BLOOD COUNT 8.7 4.5 - 11.0 thou/cu mm 10/07/2023 6:28 AM CDT [facility] Blood BLOOD SPECIMEN / Unknown Venipuncture / Unknown 10/07/2023 5:40 AM CDT 10/07/2023 6:17 AM CDT John Rondon MD HEMATOLOGY [facility] [address] [place] [address] * (ABNORMAL) CBC WITH AUTO DIFFERENTIAL (10/06/2023 9:14 PM CDT) WHITE BLOOD COUNT 9.5 4.5 - 11.0 thou/cu mm 10/06/2023 9:23 PM T [facility] RED BLOOD COUNT 4.06 4.00 - 5.20 mil/cu mm 10/06/2023 9:23 PM T [facility] HEMOGLOBIN 12.2 12.0 - 16.0 g/dL 10/06/2023 9:23 PM T [facility] HEMATOCRIT 36.8 33.0 - 51.0 % 10/06/2023 9:23 PM T [facility] MCV 91 80 - 100 fL 10/06/2023 9:23 PM T [facility] MCH 30.0 26.0 - 34.0 pg 10/06/2023 9:23 PM [facility] MCHC 33.2 32.0 - 36.0 g/dL 10/06/2023 9:23 PM [facility] RDW 14.0 11.5 - 15.5 % 10/06/2023 9:23 PM [facility] PLATELET COUNT 297 140 - 440 thou/cu mm 10/06/2023 9:23 PM [facility] MPV 8.5 6.5 - 11.0 fL 10/06/2023 9:23 PM [facility] % NEUT 64.6 % 10/06/2023 9:23 PM [facility] % LYMPH 21.9 % 10/06/2023 9:23 PM [facility] % MONO 8.9 % 10/06/2023 9:23 PM [facility] % EOS 4.1 % 10/06/2023 9:23 PM [facility] % BASO 0.5 % 10/06/2023 9:23 PM [facility] ABSOLUTE NEUTROPHILS 6.1 1.7 - 7.0 thou/cu mm 10/06/2023 9:23 PM [facility] ABSOLUTE LYMPHOCYTES 2.1 0.9 - 2.9 thou/cu mm 10/06/2023 9:23 PM [facility] ABSOLUTE MONOCYTES 0.9(H) <0.9 thou/cu mm 10/06/2023 9:23 PM [facility] ABSOLUTE EOSINOPHILS 0.4 <0.5 thou/cu mm 10/06/2023 9:23 PM [facility] ABSOLUTE BASOPHILS 0.1 <0.3 thou/cu mm 10/06/2023 9:23 PM [facility] Blood BLOOD SPECIMEN / Unknown Butterfly / Unknown 10/06/2023 9:14 PM CDT 10/06/2023 9:19 PM T John Rondon MD HEMATOLOGY [facility] [address] [place] [address] * PHOSPHORUS (10/06/2023 9:14 PM CDT) PHOSPHORUS 3.7 2.5 - 4.5 mg/dL 10/06/2023 9:38 PM CDT [facility] Blood BLOOD SPECIMEN / Unknown Butterfly / Unknown 10/06/2023 9:14 PM CDT 10/06/2023 9:19 PM CDT John Rondon MD CHEMISTRY [facility] [address] [place] [address] * MAGNESIUM (10/06/2023 9:14 PM CDT) MAGNESIUM 2.0 1.6 - 2.4 mg/dL 10/06/2023 9:38 PM CDT [facility] Blood BLOOD SPECIMEN / Unknown Butterfly / Unknown 10/06/2023 9:14 PM CDT 10/06/2023 9:19 PM CDT John Rondon MD CHEMISTRY [facility] [address] [place] [address] * (ABNORMAL) Hemoglobin A1C (10/06/2023 9:14 PM CDT) Pathologist [facility] HEMOGLOBIN A1C MONITORING (POCT) 10.3(H) <=6.4 % 10/07/2023 7:21 AM CDT [facility] Blood BLOOD SPECIMEN / Unknown Add On / Unknown 10/06/2023 9:14 PM CDT 10/07/2023 1:41 AM CDT Narrative [facility] - 10/07/2023 7:21 AM CDT ? (<=6.9%) ? Indicates good control ? (7.0% to 7.9%) ? Indicates fair control ? (>=8.0%) ? Indicates poor control ?? NOTE: ??These thresholds are guidelines and ?individual targets may vary. Falsely low levels may be seen with: Recent Transfusion, Recent Significant Blood Loss, Hemolytic Diseases, or Falsely elevated levels may be seen with: Untreated Anemias, Splenectomy ? John Rondon MD CHEMISTRY Performing Organization Address [facility]/ZIP Co de Phone Number [facility] [address] [place] [address] * CK TOTAL (10/06/2023 9:14 PM CDT) [facility] CK,TOTAL 83 26 - 192 IU/L 10/06/2023 9:38 PM CDT [facility] Blood BLOOD SPECIMEN / Unknown Butterfly / Unknown 10/06/2023 9:14 PM CDT 10/06/2023 9:19 PM CDT John Rondon MD CHEMISTRY Performing Organization Address [facility]/ZIP Co de Phone Number [facility] [address] [place] [address] * (ABNORMAL) BASIC METABOLIC PANEL (10/06/2023 9:14 PM CDT) [facility] SODIUM 134(L) 136 - 145 mmol/L 10/06/2023 9:38 PM T [facility] POTASSIUM 4.4 3.5 - 5.1 mmol/L 10/06/2023 9:38 PM T [facility] CHLORIDE 96(L) 98 - 107 mmol/L 10/06/2023 9:38 PM T [facility] CO2,TOTAL 29 22 - 29 mmol/L 10/06/2023 9:38 PM [facility] ANION GAP 9 5 - 18 10/06/2023 9:38 PM [facility] GLUCOSE 254(H) 70 - 99 mg/dL 10/06/2023 9:38 PM T [facility] CALCIUM 9.3 8.8 - 10.2 mg/dL 10/06/2023 9:38 PM T [facility] BUN 18 8 - 23 mg/dL 10/06/2023 9:38 PM [facility] CREATININE 0.82 0.50 - 0.90 mg/dL 10/06/2023 9:38 PM [facility] BUN/CREAT RATIO 22(H) 10 - 20 9:38 PM [facility] eGFR 72(L) >90 mL/min/1.7 3m2 10/06/2023 9:38 PM [facility] Comment:As of 2021, eG FR is calculated by the CKD-EPI creatinine equation without race adjustment. ??eGFR can be influenced by muscle mass, exercise, and diet. ??The reported eGFR is an estimation only and is only applicable if the renal function is stable. Blood BLOOD SPECIMEN / Unknown Butterfly / Unknown 10/06/2023 9:14 PM CDT 10/06/2023 9:19 PM CDT John Rondon MD CHEMISTRY [facility] [address] [place], [place] [id number] * (ABNORMAL) DRUG SCREEN RAPID URINE INHOUSE (10/06/2023 4:21 PM CDT) THC METABOLITES,STU L Not Detected Not Detected 10/06/2023 4:43 PM T [facility] PCP,QUAL Not Detected Not Detected 10/06/2023 4:43 PM [facility] COCAINE,QUAL Not Detected Not Detected 10/06/2023 4:43 PM [facility] METHAMPHETAMINE , QUALITATIVE Not Detected Not Detected 10/06/2023 4:43 PM [facility] OPIATES,QUAL Not Detected Not Detected 10/06/2023 4:43 PM [facility] AMPHETAMINE, QUALITATIVE Not Detected Not Detected 10/06/2023 4:43 PM [facility] BENZODIAZEPINES ,QUAL Not Detected Not Detected 10/06/2023 4:43 PM CDT [facility] TRICYCLICS,QUAL Non-negative , consider further testing if indicated(A) Not Detected 10/06/2023 4:43 PM CDT [facility] METHADONE, QUALITATIVE Not Detected Not Detected 10/06/2023 4:43 PM CDT [facility] BARBITURATES,QU AL Not Detected Not Detected 10/06/2023 4:43 PM CDT [facility] OXYCODONE, QUALITATIVE Non-negative , consider further testing if indicated(A) Not Detected 10/06/2023 4:43 PM CDT [facility] BUPRENORPHINE, QUALITATIVE Not Detected Not Detected 10/06/2023 4:43 PM CDT [facility] Urine URINE SPECIMEN / Unknown Non-Blood / Unknown 10/06/2023 4:21 PM CDT 10/06/2023 4:26 PM CDT Narrative [facility] - 10/06/2023 4:43 PM CDT Please Note: ?? This is a screening test only, all results are unconfirmed and should be used for medical purposes only. ??Unconfirmed results must not be used for non-medical purposes (e.g., employment testing, legal testing). ??Suggest analyte specific confirmation for all non-negative results. ??Specimens will be held for 24 hours if additional testing is needed. ?? The following threshold concentrations are used for this analysis: ? Drug ? Screening Threshold ? Buprenorphine ? 10 ng/mL PCP ? 25 ng/mL ?? THC Metabolites ? 50 ng/mL *Opiates ? 100 ng/mL Oxycodone ?100 ng/mL Cocaine ?150 ng/mL Benzodiazepines ?150 ng/mL ?? Methadone ?200 ng/mL ?? Barbiturates ? 200 ng/mL Tricyclic Antidepressants ?300 ng/mL ?? Amphetamines ? 500 ng/mL ?? Methamphetamines ? 500 ng/mL ?*Includes related compounds: ? Codeine ?50 ng/mL ? Heroin ?100 ng/mL ? Morphine ?100 ng/mL ? Hydrocodone ? 400 ng/mL ? Hydromorphone ? 800 ng/mL ?Venlafaxine (Effexor) is a known cross reactant in the PCP ?assay. ??If clinically indicated, order PCP confirmation. Dickson Ed Triage URINE Performing Organization Address [facility]/ZIP Co de Phone Number [facility] [address] [place] [address] * (ABNORMAL) URINALYSIS MICROSCOPIC (10/06/2023 4:21 PM CDT) RBC 0-2 0-2, None Seen /HPF 10/06/2023 4:39 PM CDT [facility] WBC 6-10(A) 0-2, 3-5, None Seen /HPF 10/06/2023 4:39 PM CDT [facility] BACTERIA Few None Seen, Rare, Few Bacteria/ HPF 10/06/2023 4:39 PM CDT [facility] EPITHELIAL CELLS Few None Seen, Few Epi/HPF 10/06/2023 4:39 PM CDT [facility] WHITE CELL CLUMPS Present(A) (none) 10/06/2023 4:39 PM CDT [facility] Urine URINE SPECIMEN / Unknown Non-Blood / Unknown 10/06/2023 4:21 PM CDT 10/06/2023 4:26 PM CDT Dickson Ed Triage URINE [facility] [address] [place] [address] * URINE CULTURE (10/06/2023 4:21 PM CDT) CULTURE <10,000 CFU/mL multiple organisms 10/07/2023 6:40 PM CDT [facility] Urine URINE SPECIMEN / Unknown Non-Blood / Unknown 10/06/2023 4:21 PM CDT 10/06/2023 4:26 PM CDT Lacey Rascon MD [facility]OLOGY [facility] [address] [place] [address], [place] * (ABNORMAL) UA W/ SEDIMENT EXAM REFLEXED PER CRITERIA (10/06/2023 4:21 PM CDT) COLOR Yellow Yellow Color 10/06/2023 4:39 PM CDT [facility] CLARITY Clear Clear Clarity 10/06/2023 4:39 PM T [facility] SPECIFIC GRAVITY,URINE 1.010 1.010, 1.015, 1.020, 1.025 10/06/2023 4:39 PM T [facility] PH,URINE 6.0 6.0, 7.0, 8.0, 5.5, 6.5, 7.5, 8.5 10/06/2023 4:39 PM T [facility] UROBILINOGEN, QUALITATIVE Normal Normal EU/dl 10/06/2023 4:39 PM T [facility] PROTEIN, URINE Negative Negative mg/dL 10/06/2023 4:39 PM T [facility] GLUCOSE, URINE >=1000(A) Negative mg/dL 10/06/2023 4:39 PM T [facility] KETONES,URINE Negative Negative mg/dL 10/06/2023 4:39 PM T [facility] BILIRUBIN,URI NE Negative Negative 10/06/2023 4:39 PM T [facility] OCCULT BLOOD,URINE Negative Negative 10/06/2023 4:39 PM [facility] NITRITE Negative Negative 10/06/2023 4:39 PM [facility] LEUKOCYTE ESTERASE Moderate(A) Negative 10/06/2023 4:39 PM T [facility] Urine URINE SPECIMEN / Unknown Non-Blood / Unknown 10/06/2023 4:21 PM CDT 10/06/2023 4:26 PM CDT Dickson Ed Triage URINE [facility] [address] [place] [address] * (ABNORMAL) XR DXA BONE DENSITY 2 SITES AXIAL (12/24/2022 1:30 PM CDT) Anatomical Region Laterality Modality Spine, HIPS, HIPL, HIPR Other Impressions 12/29/2022 8:07 AM CDT Normal bone density. RECOMMENDATIONS: The National Osteoporosis Foundation recommends pharmacologic treatment for patients with T-scores of -2.5 or less, patients with prior history of fragility fractures, or patients with 10-year probability of greater than 3% at hips or greater than 20% of suffering major osteoporotic fractures. Recommend continued optimization of calcium and vitamin D intake through dietary means and/or supplementation and regular exercise. Repeat scan recommended in 3-5 years. Judy Guerra PA-C [facility] 12/29/2022 ?? Narrative 12/29/2022 8:07 AM CDT For Patients: Results are automatically released to your [facility]) account once available, in compliance with federal regulations. This means that you may see your results before your provider has had a chance to review them. Please allow 2-3 business days for your provider to comment on the results. XR DXA Bone Mineral Density (BMD) EXAM LOCATION: [address] [address] PATIENT NAME: Evon Hinton DATE OF : 1940 EXAM DATE: 12/24/2022 REQUESTING PROVIDER: Jesus Mistry MD GENDER AT : female HEIGHT: 5' 1.65 (12/18/2022) WEIGHT: ??194 lb 9.6 oz (12/18/2022) MENOPAUSAL STATUS: Postmenopausal RACE/ETHNICITY: White RISK FACTORS: White Race CURRENT MEDICATION FOR BONE LOSS: NONE INDICATION: Post-Menopause and Follow-up of normal DXA COMPARISON DATE(S): None DXA scans are compared to prior studies for a patient only when the two (or more) studies were performed on the same scanner. It is not possible to compare data generated on one scanner to data from another because there are not standards in DXA equipment. This applies even if the two scanners are made by the same medical territory manager. PROCEDURE: Dual-energy x-ray absorptiometry performed with routine technique. Reporting is completed in the form of a T-score. The T-score represents the standard deviation from peak bone mass based on young healthy adult. A Z-score is used for diagnosis in premenopausal women, and for men under the age of 50. FINDINGS: RESULT LUMBAR SPINE L1 - L4 BMD: 1.405 g/cm2 T-Score: + 1.7 Z-Score: + 2.8 Change from prior: ??None RESULTS FEMUR Left femoral neck BMD: 0.998 g/cm2 T-Score: - 0.3 Z-Score: + 1.4 Change from prior: ??None Right femoral neck BMD: 0.999 g/cm2 T-Score: - 0.3 Z-Score: + 1.4 Change from prior: ??None Left hip BMD: 1.021 g/cm2 T-Score: + 0.1 Z-Score: + 1.6 Change from prior: ??None Right hip BMD: 0.993 g/cm2 T-Score: - 0.1 Z-Score: + 1.4 Change from prior: ??None WHO criteria: Normal: T-score at or above -1 SD Osteopenia: T-score between -1.1 and -2.4 SD Osteoporosis: T-score at or below -2.5 SD Jesus Mistry MD DEXA from Last 3 Months or Most Recently Relevant to Health Maintenance Advance Directives Documents on File Type Date Recorded Patient Order Filler Expl anation POLST 09/21/2019 3:08 PM POLST 09/13 POLST 08/10/2015 12:00 AM Healthcare Directive 12/12/2014 12:12 PM [facility] ANATOM[facility] REQUEST PROGRAM DONATION FORM * DNR (Latest Code Status on File) Date Activated Date Inactivated Comments 10/06/2023 10:58 PM 10/13/2023 2:53 PM POLST Question Answer Comments Code Status Discussion: Reviewed Preferences Care Teams Dry Placer Machine Operator Relationship Specialty Start Date End Date Jesus Mistry MD [address] [place] [address] PCP - General Family Practice 12/02/18
== END 2023-10-06 14:17 | disposition home or self-care (01) ==
LOC: AMB 10-14 17:33
PROVIDERS: PCP Family Medicine; Visit Provider Emergency Medicine
DX: R53.81 Other malaise (principal)
CPT/HCPCS: A0425; A0429

== ENCOUNTER → 2024-05-31 07:29 | Outpatient (RCR) | payer MEDICARE, SELFPAY | END | disposition home or self-care (01) | LOC: MOW 05-29 08:49 | PROVIDERS: PCP Family Medicine; Visit Provider Family Medicine | DX: Z76.0 Encounter for issue of repeat prescription (principal) | CPT/HCPCS: S5170 ==